=== PATIENT | male | born 1950 | race Caucasian/White ===

== ENCOUNTER → 2018-01-29 15:23 | Outpatient (CLI) | payer MEDICARE, MEDICAID, SELFPAY ==
[2018-01-29 17:46] LABS: Anion Gap 9 (5-15); BUN 23 mg/dL (7-18); BUN/Creat Ratio 19.3 RATIO (10-20); Calcium,Total 9.1 mg/dL (8.5-10.1); Chloride 106 mmol/L (98-107); Creatinine, Serum 1.19 mg/dL (0.70-1.30); EST Glomerular Filtration Rate 65 mL/min (>60); Est Glom Filt Rate - Afr Amer 78 mL/min (>60); Glucose 73 mg/dL (74-106); Potassium 4.1 mmol/L (3.5-5.1); Sodium Level 140 mmol/L (136-145)
== END ==
PROVIDERS: Family Provider Family Medicine; PCP Family Medicine; Visit Provider Urology
DX: C67.9 Malignant neoplasm of bladder, unspecified (principal)
CPT/HCPCS: 36415; 80048

== ENCOUNTER 2018-04-14 10:59 | Inpatient (IN) | payer MEDICARE, MEDICAID, SELFPAY ==
[2018-04-14 11:01] VITALS: BP 187/94; PULSE 59; RESP 16; TEMP 36.8; O2SAT 98; BMI 26.4
--- NOTE | 2018-04-14 11:47 | ED.VISSUMM ---
- ER Visit Summary Date of Service: 04/14/18 Chief Complaint: Right flank pain History of Present Illness: The patient is a 68 M presenting from [facility] emergency department for right-sided flank pain. Patient had a CT scan at [facility] which showed moderate bilateral hydronephrosis, hydroureter and perinephric fat stranding. These findings were discussed with Dr. Fields prior to his arrival who felt he will need stent placement. Patient has history of bladder cancer with tumor removal in November. His creatinine is elevated 2.14. His urine shows 6-10 white blood cells. Blood and urine cultures were sent at [facility]. He was given Cipro, Dilaudid, Toradol prior to arrival. On arrival patient's pain is controlled. Physical Examination: Vitals are stable. Patient is afebrile. Alert no acute distress. HEENT exam is unremarkable. Neck is supple. Lungs are clear and equal bilaterally. Heart is regular rate and rhythm. Abdomen is soft nontender nondistended. Back: nontender Extremities are unremarkable. Skin is warm and dry. No focal neurologic deficit. Remainder of exam is unremarkable. Emergency Department Course and Treatment: Patient's pain is controlled. Discussed with Dr Fields and the hospitalist for admission. Disposition: Admission Impression: Bilateral hydronephrosis, SAWYER, UTI This note was generated with [employer] dictation software. It may contain incorrect words, spelling, and punctuation that were not noted in review of the chart prior to signing ED Disposition - Plan for ED Patient: Disposition: Acute Care Hospital [facility] Chief Complaint: Flank Pain
--- NOTE | 2018-04-14 11:50 | ED.DCSUM_ITS ---
- ER Visit Summary Date of Service: 04/14/18 Chief Complaint: Right flank pain History of Present Illness: The patient is a 68 M presenting from [facility] emergency department for right-sided flank pain. Patient had a CT scan at [facility] which showed moderate bilateral hydronephrosis, hydroureter and perinephric fat stranding. These findings were discussed with Dr. Fields prior to his arrival who felt he will need stent placement. Patient has history of bladder cancer with tumor removal in November. His creatinine is elevated 2.14. His urine shows 6-10 white blood cells. Blood and urine cultures were sent at [facility]. He was given Cipro, Dilaudid, Toradol prior to arrival. On arrival patient's pain is controlled. Physical Examination: Vitals are stable. Patient is afebrile. Alert no acute distress. HEENT exam is unremarkable. Neck is supple. Lungs are clear and equal bilaterally. Heart is regular rate and rhythm. Abdomen is soft nontender nondistended. Back: nontender Extremities are unremarkable. Skin is warm and dry. No focal neurologic deficit. Remainder of exam is unremarkable. Emergency Department Course and Treatment: Patient's pain is controlled. Discussed with Dr Fields and the hospitalist for admission. Disposition: Admission Impression: Bilateral hydronephrosis, SAWYER, UTI This note was generated with [employer] dictation software. It may contain incorrect words, spelling, and punctuation that were not noted in review of the chart prior to signing ED Disposition - Plan for ED Patient: Disposition: Acute Care Hospital [facility] Chief Complaint: Flank Pain
[2018-04-14 11:56] VITALS: BP 163/88; PULSE 69; RESP 14; O2SAT 98
[2018-04-14 12:34] VITALS: BP 163/86; PULSE 64; RESP 16; TEMP 36.5; O2SAT 96; BMI 25.5; BMI 25.6
--- NOTE | 2018-04-14 13:43 | PCM.HP.STD ---
Problem List (1) Bilateral hydronephrosis Status: Acute (2) Hydroureter on left Status: Acute (3) Hydroureter on right Status: Acute (4) Acute kidney injury Status: Acute (5) Pulmonary nodule Status: Acute (6) Hypertension Status: Chronic (7) GERD (gastroesophageal reflux disease) Status: Chronic (8) Peripheral vascular disease Status: Chronic Comment: has had a stent left groin (9) Tobacco dependence Status: Chronic (10) Enlarged prostate Status: Chronic (11) Chest tightness or pressure Status: Acute Comment: has been intermittent and associated with exertion and SOB History of Present Illness Date of Admission: 04/14/18 Chief Complaint: Sent to [facility] from an outside ED with BL hydronephrosis/back pain The patient is a 68 year old M with a past medical history of hypertension, GERD, bladder cancer, BPH, CULLEN (noncompliant with CPAP), lipidemia and tobacco dependence who presented to an outside ER complaining of sudden onset of back pain night. CT scan of the abdomen and pelvis at the outside ER showed bilateral hydronephrosis and bilateral hydroureter. Creatinine was increased at 2.14. White cell count was 9.2 and the hemoglobin was 16.4 with normal platelets. Electrolytes were unremarkable. Urine showed 6-10 WBCs per high-power field and 11-25 WBCs per high-power field. His urologist, Dr. Jose Juan Fields, was contacted and patient transferred to [facility]. He tells me that he has had hematuria since his cystoscopy in November 2007. He had urinary hesitancy while at the outside ER but, this has improved since IV fluids. He denies fevers, shaking chills, dysuria, cough, shortness of breath. Current vital signs are temperature 97.7, heart rate 64, blood pressure 163/86, respiratory rate 16 and he is 96-98% saturated on room air. He also tells me that he has had chest pain in the past and it comes on with exertion and is relieved with stress. It is associated with SOB but not diaphoresis or nausea. He has never had a stress test. There is a hx of CAD on his father's side of the family. Past Medical History Past Medical History (Chronic Problems): Chronic Problems Hypertension (Chronic) GERD (gastroesophageal reflux disease) (Chronic) Peripheral vascular disease (Chronic) has had a stent left groin Tobacco dependence (Chronic) Enlarged prostate (Chronic) Allergies bupropion [From Wellbutrin] Allergy (Verified 04/14/18 11:08) Unknown cephalexin [From Keflex] Allergy (Verified 04/14/18 11:08) Unknown Penicillins Allergy (Verified 04/14/18 11:08) Unknown Home Medications: Ambulatory Orders Medication Instructions Recorded Aspirin E.C. [Ecotrin] 81 mg PO DAILY@0800 12/03/17 Cholecalciferol (Vitamin D3) 1,000 unit PO PRN PRN 12/03/17 [Vitamin D3] Lisinopril [Prinivil] 10 mg PO DAILY 12/03/17 Pantoprazole Sodium [Protonix] 40 mg PO PRN PRN 12/03/17 Finasteride [Proscar] 5 mg PO DAILY 04/14/18 Tamsulosin HCl [Flomax] 0.4 mg PO BID 04/14/18 Surgical History: total hip arthroplasty - Left hip, - - Resection of a bladder tumor by Dr. Jose Juan Fields in November 2017, repair of laceration to the right wrist after he put his hand through a window. Stent LLE Psychiatric History: No pertinent psych hx Lives: Alone Smoking Status: Current every day smoker Tobacco Use: Cigarettes Alcohol: Occasional Drugs: None - *Family History Paternal History Items: Heart Disease, - - Peripheral vascular disease Review of Systems Constitutional: Denies: Anorexia, Chills, Fever, Weakness Eyes: Denies: Vision Change HEENT: Denies: Head Aches, Sinus Congestion, Sinus Drainage Cardiovascular: Reports: Chest Tightness - associated with exertion and SOB. Denies: Edema, Light Headedness, Orthopnea, Palpitations, Syncope Respiratory: Reports: Shortness of breath upon exertion. Denies: Hemoptysis, Sputum production Gastrointestinal: Reports: Abdominal Pain, Nausea. Denies: Vomiting Genitourinary: Reports: Hematuria, Hesitancy, Retention. Denies: Dysuria Musculoskeletal: Reports: Back Pain. Denies: Joint Pain, Joint Tenderness Skin: Denies: Rash, Wounds Psychiatric: Denies: Anxiety, Depression, Homicidal Ideations, Suicidal Ideations Endocrine: Denies: Change in Body Habitus Hematologic/ Lymphatic: Denies: Hx of blood clot VTE Information - Inpt Only VTE Present on Admission: No VTE Mechan Device Prophylaxis: SCD's, Knee High MARCIE Hose VTE Pharm Prophylaxis ordered?: No Reason prophylaxis not ordered:: Treatment Not Indicated - he has hematuria and is going to surgery in the next 24 hours Patient Problems: Active and Suspected Problems Bilateral hydronephrosis (Acute) Hydroureter on left (Acute) Hydroureter on right (Acute) Acute kidney injury (Acute) Pulmonary nodule (Acute) Chest tightness or pressure (Acute) has been intermittent and associated with exertion and SOB - Physical Exam General: Alert, Oriented x3, Cooperative, No apparent distress, Well developed, Well nourished HEENT: Atraumatic, PERRLA, EOMI, Normocephalic Oral: No Gingival or Mucosal Lesions/ Ulcerations, Dry Mucosa Neck: Supple, No JVD, Negative Carotid Bruits, - - Brisk carotid upstroke with good pulse volume bilaterally Lungs: Normal air movement, Rales - few coarse crackles in the right base but optherwise normal, - - rare wheeze, symmetric chest expansion, no conversational dyspnea, not tachypneic, no accessory muscle use. Cardiovascular: Regular rate, Regular Rhythm, Normal S1, Normal S2, No murmurs, No Ectopic Activity, No rub noted, No Gallop Abdomen: Bowel Sounds Present, Soft, Non Tender, Non-Distended, - - The bladder does not feel distended at the time of my exam. No guarding with palpation. No masses appreciated. Extremities: No clubbing, No cyanosis, No Calf Tenderness, Diminished Peripheral Pulses, Edema - small amount of edema in the ankles Skin: No rashes, No breakdown Musculoskeletal: No Muscle Wasting Neurological: Cranial nerves II-XII grossly intact, Neuro grossly intact Psych/Mental Status: Normal Affect, Appropriate Vital Signs Temp Pulse Resp BP Pulse Ox 97.7 F L 64 16 163/86 H 96 04/14/18 12:34 04/14/18 12:34 04/14/18 12:34 04/14/18 12:34 04/14/18 12:34 Oxygen Delivery Method Room Air Weight: 193 lb 12.8 oz Body Mass Index (BMI) 25.5 Assessment/Plan Active and Suspected Problems Bilateral hydronephrosis (Acute) Hydroureter on left (Acute) Hydroureter on right (Acute) Acute kidney injury (Acute) Pulmonary nodule (Acute) Chest tightness or pressure (Acute) has been intermittent and associated with exertion and SOB Impressions 1. Bilateral hydronephrosis and hydroureter with a history of bladder [place] [address] [place] 2. History of bladder cancer 3. Hypertension 4. Acute kidney injury likely secondary to urinary tract obstruction 5. GERD 6. Ongoing tobacco dependence 7. Hematuria 8. Pulmonary nodule right base reported on CT scan of the abdomen and pelvis 9. CP with exertion and associated with SOB - has never had a stress test. Discussed with Dr. Fields-will make n.p.o. after midnight for planned cystoscopy in the a.m. SCDs and MARCIE hose for DVT prophylaxis and hold off on pharmacologic prophylaxis due to hematuria and planned surgery in less than 24 hours Hydrate Check a post void residual Protonix for GI prophylaxis Pain medication ordered Recheck lab in the a.m. No Patel at this time Hydralazine as needed for systolic greater than 150 or diastolic greater than 85 EKG now Smoking cessation counseling given NicoDerm patch ordered Continue aspirin and DC Lisinopril due to SAWYER Code Visit Inpatient E&M: 46813 Init Hosp L3
[2018-04-14] MEDS: Finasteride 5 MG Tablet PO (14:53)
[2018-04-14] MEDS: Lactated Ringers 1,000 ML 100 ML IV ×2 (14:53→23:53)
[2018-04-14] MEDS: Pantoprazole Sodium 40 MG Tablet PO (14:53)
[2018-04-14 18:12] VITALS: BP 149/79; PULSE 63; RESP 16; TEMP 36.8; O2SAT 96
[2018-04-14 20:17] VITALS: BP 151/86; PULSE 58; RESP 16; TEMP 36.8; O2SAT 97
[2018-04-14] MEDS: Tamsulosin HCl 0.4 MG Capsule PO (21:57)
[2018-04-15] VITALS (11 sets, daily range): BP systolic 133–169; BP diastolic 66–85; PULSE 51–98; RESP 16; TEMP 36.3–36.9; O2SAT 94–100; BMI 25.6
--- NOTE | 2018-04-15 03:23 | CON.PCM_ITS ---
Reason for Consult Date of Consultation: 04/15/18 Reason for Consultation: History of bladder cancer status post resection of a very large tumor involving the trigone in the bladder. Presented with bilateral hydronephrosis thickened bladder wall on CAT scan History of Present Illness: The patient is a 68 year old male who is a heavy smoker was found to have a very large bladder tumor that occupied is bladder trigone and was overlying both the ureteral orifices, I resected both the tumors I did identify the left and right ureteral orifice did not put a stent in the risk of contaminant contaminating the upper tracts, after surgeries having difficulty with urination so put him on an alpha-carol medication for his prostate and he been urinating better since then. [facility] and was found to have bilateral hydronephrosis and a horseshoe kidney also has a 12 mm nodule in the lung base which is new, no prior imaging to document stability. He does report having gross hematuria. CT scan was reviewed personally a lot of scar scatter artifact from the hip replacement difficult to tell if there is any recurrent tumors in the bladder given the scatter artifact from the hip but he does have bilateral hydronephrosis horseshoe kidney with hydronephrosis. His creatinine is elevated. Past Medical History Past Medical History (Chronic Problems): Chronic Problems Hypertension (Chronic) GERD (gastroesophageal reflux disease) (Chronic) Peripheral vascular disease (Chronic) has had a stent left groin Tobacco dependence (Chronic) Enlarged prostate (Chronic) Allergies bupropion [From Wellbutrin] Allergy (Verified 04/14/18 11:08) Unknown cephalexin [From Keflex] Allergy (Verified 04/14/18 11:08) Unknown Penicillins Allergy (Verified 04/14/18 11:08) Unknown Home Medications: Ambulatory Orders Medication Instructions Recorded Aspirin E.C. [Ecotrin] 81 mg PO DAILY@0800 12/03/17 Cholecalciferol (Vitamin D3) 1,000 unit PO PRN PRN 12/03/17 [Vitamin D3] Lisinopril [Prinivil] 10 mg PO DAILY 12/03/17 Pantoprazole Sodium [Protonix] 40 mg PO PRN PRN 12/03/17 Finasteride [Proscar] 5 mg PO DAILY 04/14/18 Tamsulosin HCl [Flomax] 0.4 mg PO BID 04/14/18 Surgical History: total hip arthroplasty - Left hip, - - Resection of a bladder tumor by Dr. Jose Juan Fields in November 2017, repair of laceration to the right wrist after he put his hand through a window. Stent LLE Psychiatric History: No pertinent psych hx Lives: Alone Smoking Status: Current every day smoker Tobacco Use: Cigarettes Alcohol: Occasional Drugs: None - *Family History Paternal History Items: Heart Disease, - - Peripheral vascular disease Review of Systems Constitutional: Reports: Anorexia, Chills HEENT: Denies: Head Aches, Sinus Congestion, Sinus Drainage Cardiovascular: Denies: Chest Pain, Palpitations Respiratory: Reports: Cough. Denies: Shortness of breath at rest, Sputum production Gastrointestinal: Denies: Abdominal Pain, Nausea, Vomiting Genitourinary: Reports: Hematuria - Systolic history are not adjusted to me to be fine Musculoskeletal: Denies: Joint Pain, Joint Tenderness Skin: Denies: Rash, Wounds Neurological: Denies: Numbness, Tingling, Focal weakness Psychiatric: Denies: Anxiety, Depression, Homicidal Ideations, Suicidal Ideations Hematologic/ Lymphatic: Denies: Easy Bruising, Easy Bleeding Physical Exam - Physical Exam Vital Signs Temp 98.5 F 04/15/18 02:20 Pulse 61 04/15/18 02:20 Resp 16 04/15/18 02:20 BP 137/66 H 04/15/18 02:20 Pulse Ox 95 04/15/18 02:20 Intake & Output 04/13/18 04/14/18 04/15/18 23:59 23:59 23:59 Intake Total 1184 / 1184 Output Total 1660 / 1660 Balance -476 / -476 Weight: 87.906 kg Intake: Oral 360 / 360 IV fluid/meds 824 / 824 Output: Urine 1660 / 1660 Other: Number of Voids 2 General: Alert, Oriented x3 HEENT: Atraumatic, PERRLA Oral: Moist Mucosa Neck: Supple Lungs: Normal air movement Cardiovascular: Regular rate Abdomen: Soft Rectal: Exam deferred Assessment/Plan Active and Suspected Problems Bilateral hydronephrosis (Acute) Hydroureter on left (Acute) Hydroureter on right (Acute) Acute kidney injury (Acute) Pulmonary nodule (Acute) Chest tightness or pressure (Acute) has been intermittent and associated with exertion and SOB 68-year-old male history of bladder cancer bilateral hydronephrosis etiology of the hydronephrosis are as follows this is explained to the patient could be scar tissue from her second is large bladder cancer that the case with the re- resect scar tissue and placed stents on both sides allowed to heal, hydronephrosis could also be from progression of cancer could be a sign of recurrent bladder cancer. He does have a 12 mm nodule in the lung bases concerning recommend to get further imaging with a CT scan of the chest to further evaluate the chest. Planted taken to surgery tomorrow for a TURBT and bilateral stent placement.
[2018-04-15 06:02] LABS: Absolute Lymphocyte Count 1.48 X10^3/ul (0.83-4.51); Absolute Neutrophil Count 3.5 X10^3/uL (2.0-7.7); Basophil# 0.02 X10^3/uL; Basophil% 0.4 % (0-1); Eosinophils% 1.8 % (0-5); Hematocrit 40.3 % (40-54); Hemoglobin 13.5 g/dl (13.0-16.5); Lymphocyte # 1.48 X10^3/ul (4.0); Lymphocyte % 26.4 % (19-41); Mean Corp Hgb Conc 33.5 g/gl (32-36); Mean Corpuscular Hgb 30.1 pg (27.0-32.0); Mean Platelet Vol. 10.5 fl (6.2-12.0); Monocyte# 0.54 X10^3/uL; Monocyte% 9.6 % (0-10); Neutrophil # 3.47 X10^3/uL (2.7-7.7); Neutrophil % 61.8 % (47-70); Platelet Count 173 K/mm3 (150-450); RBC Distribution Width CV 13.6 % (11.6-14.6); RBC Distribution Width SD 44.7 fl (35.1-43.9); Red Blood Count 4.48 M/mm3 (4.6-6.2); White Blood Count 5.6 K/mm3 (4.4-11.0)
[2018-04-15 06:10] LABS: POSITIVE COUNT NO; POSITIVE DIFFERENTIAL NO; POSITIVE MORPHOLOGY NO
[2018-04-15 06:36] LABS: ALB/GLOB Ratio 0.8 RATIO (0.9-2.4); AST(SGOT) 13 U/L (15-37); Alanine Aminotransfer ALT/SGPT 11 U/L (16-61); Albumin, Serum 2.8 g/dL (3.2-5.0); Alkaline Phosphatase 59 U/L (45-117); Anion Gap 8 (5-15); BUN 33 mg/dL (7-18); BUN/Creat Ratio 18.4 RATIO (10-20); Calcium,Total 8.4 mg/dL (8.5-10.1); Chloride 110 mmol/L (98-107); Cholesterol 211 mg/dL (200); Creatinine, Serum 1.79 mg/dL (0.70-1.30); EST Glomerular Filtration Rate 40 mL/min (>60); Est Glom Filt Rate - Afr Amer 49 mL/min (>60); Estimated Creatinine Clearance 44.64 ml/min; Globulin 3.4 g/dL (2.2-4.2); Glucose 90 mg/dL (74-106); High Density Lipoprotein 30 mg/dL; Magnesium 1.6 mg/dL (1.6-2.6); Phosphorus 3.4 mg/dL (2.5-4.9); Potassium 4.5 mmol/L (3.5-5.1); Protein, Total 6.2 g/dL (6.4-8.2); Sodium Level 144 mmol/L (136-145); Triglycerides 159 mg/dL; Very Low Density Lipoprotein 32 mg/dL (5-40)
--- NOTE | 2018-04-15 08:23 | PCM.PROGNOTE ---
Patient Problems: Active and Suspected Problems Bilateral hydronephrosis (Acute) Hydroureter on left (Acute) Hydroureter on right (Acute) Acute kidney injury (Acute) Pulmonary nodule (Acute) Chest tightness or pressure (Acute) has been intermittent and associated with exertion and SOB Subjective: All events of the past 24 hours of been reviewed. He has been afebrile since admission. Systolic blood pressure is mildly elevated but vital signs are stable. He is 95-97% saturated on room air. Fluid balance since admission is +664. He has had 1660 cc of urine. All lab was personally reviewed. CBC is unremarkable. Sodium is increased at 144 with a chloride of 110. Potassium is 4.5 and his BUN is 33 with a creatinine of 1.79, down from 2 on 04/14/2018. Phosphorus and magnesium are within normal limits. LFTs are unremarkable. The LDL is 149 and the HDL is 30 with triglycerides of 159. Taken to surgery today and no obvious recurrent bladder tumor. There was a lot of scar tissue at the openings of the ureters into the bladder and the scar tissue was excised and BL ureteral stents were placed. He is alert and oriented post op and appears in no distress. Objective: - Physical Exam General: Alert, Oriented x3, Cooperative, No apparent distress, Well developed, Well nourished HEENT: Atraumatic, PERRLA, EOMI, Normocephalic Oral: No Gingival or Mucosal Lesions/ Ulcerations, Dry Mucosa Neck: Supple, No JVD, Negative Carotid Bruits, - - Brisk carotid upstroke with good pulse volume bilaterally Lungs: Normal air movement, Rales - few coarse crackles in the right base but optherwise normal, - - rare wheeze, symmetric chest expansion, no conversational dyspnea, not tachypneic, no accessory muscle use. Cardiovascular: Regular rate, Regular Rhythm, Normal S1, Normal S2, No murmurs, No Ectopic Activity, No rub noted, No Gallop Abdomen: Bowel Sounds Present, Soft, Non Tender, Non-Distended, - - The bladder does not feel distended at the time of my exam. No guarding with palpation. No masses appreciated. Extremities: No clubbing, No cyanosis, No Calf Tenderness, Diminished Peripheral Pulses, Edema - small amount of edema in the ankles Skin: No rashes, No breakdown Musculoskeletal: No Muscle Wasting Neurological: Cranial nerves II-XII grossly intact, Neuro grossly intact Psych/Mental Status: Normal Affect, Appropriate - Physical Exam Vital Signs Temp Pulse Resp BP Pulse Ox 98.5 F 61 16 137/66 H 95 04/15/18 02:20 04/15/18 02:20 04/15/18 02:20 04/15/18 02:20 04/15/18 02:20 Oxygen Delivery Method Room Air Weight: 193 lb 12.793 oz Intake and Output for Last 24 Hours 04/13/18 04/14/18 04/15/18 23:59 23:59 23:59 Intake Total 1184 / 1184 664 / 664 Output Total 1660 / 1660 Balance -476 / -476 664 / 664 Laboratory Tests Past 24 Hrs 04/15/18 04/15/18 05:30 05:30 WBC 5.6 RBC 4.48 L Hgb 13.5 Hct 40.3 MCV 90.0 MCH 30.1 MCHC 33.5 RDW 13.6 RDW Differential 44.7 H Plt Count 173 MPV 10.5 Immature Gran % (Auto) 0.000 Neut % (Auto) 61.8 Lymph % (Auto) 26.4 [place] % (Auto) 9.6 Eos % (Auto) 1.8 Baso % (Auto) 0.4 Absolute Neuts (auto) 3.5 Absolute Lymphs (auto) 1.48 Total Counted Not Reportable Sodium 144 Potassium 4.5 Chloride 110 H Carbon Dioxide 26.0 Anion Gap 8 BUN 33 H Creatinine 1.79 H Estim Creat Clear Calc 44.64 Est GFR (MDRD) Af Amer 49 L Est GFR (MDRD) Non-Af 40 L BUN/Creatinine Ratio 18.4 Glucose 90 Calcium 8.4 L Phosphorus 3.4 Magnesium 1.6 Total Bilirubin 0.50 AST 13 L ALT 11 L Alkaline Phosphatase 59 Total Protein 6.2 L Albumin 2.8 L Globulin 3.4 Albumin/Globulin Ratio 0.8 L Triglycerides 159 Cholesterol 211 H LDL Cholesterol 149 H VLDL Cholesterol 32 HDL Cholesterol 30 L Medical Necessity - Tobacco Use Smoking Status: Current every day smoker Tobacco Use: Cigarettes Assessment/Plan All Active Problems Bilateral hydronephrosis (Acute) Hydroureter on left (Acute) Hydroureter on right (Acute) Acute kidney injury (Acute) Pulmonary nodule (Acute) Chest tightness or pressure (Acute) Bladder cancer (Acute) Impressions 1. Bilateral hydronephrosis and hydroureter with a history of bladder [place] [address] [place] 2. History of bladder cancer 3. Hypertension 4. Acute kidney injury likely secondary to urinary tract obstruction 5. GERD 6. Ongoing tobacco dependence 7. Hematuria 8. Pulmonary nodule right base reported on CT scan of the abdomen and pelvis 9. CP with exertion and associated with SOB - has never had a stress test. 10. S/P BL ureteral stents Recheck the lab in the AM Possible DC tomorrow Will DC the CT chest without contrast because pulmonary nodules should have contrast with CT scan and his creat is still elevated. This is not an emergent test and it can even be done as an OP......he is agreeable to following up with pulmonary He should have an OP stress test because he has had CP with exertion associated with SOB Code Visit Inpatient E&M: 65306 Subs Hosp L2
--- NOTE | 2018-04-15 09:25 | CASEMGMT ---
RN JOHN Face to Face with patient for initial transition planning/care coordination assessment. RN CM introduced self and role at [facility]. Patient sitting in chair, alert and oriented. Patient willing to participate in assessment and is able to answer all questions appropriately. Care providers, pharmacy, and demographics verified. See link attached. Patient wishes to discharge home, denies need for home health at this time. Patient states he has no further needs or concerns at this time. CM to follow for discharge planning needs that may arise. Disposition Plan: Patient to discharge home with support from friend and follow-up plans in place.
--- NOTE | 2018-04-15 09:41 | SLEEP ---
Seen patient and education was given on sleep disordered breathing and the importance of screening/testing. Patient verbalized understanding and a brochure of information was left with the patient.
[2018-04-15] MEDS: Lactated Ringers 1,000 ML 100 ML IV (11:09)
--- NOTE | 2018-04-15 12:45 | BLB_PTH ---
PATIENT: EDUIN CHAU LOC: MS3 U#:[id number] AGE/SX: 68/M ROOM: IN318 RE04/14/[address]: Dr. Cari Hayes DO : 1950 BED: 1 DIS: 04/16/2018 SPEC #: [id number] RECD: 04/16/18 08:38 STATUS: CARROLL GUTIERREZ #: [id number] AUGUSTIN: 04/15/18 12:[address]: Jackson Fields DEPT: SURGICAL PATHOLOGY RECD BY: Shantanu Garg ENTERED: 04/16/18 09:06 SP TYPE: TURB OTHR DR: DO Dr. Donell Arteaga MD Tissues: Urinary bladder, NOS Procedures: Surgery Specimen Level V HEADER OPERATION: Cysto, transurethral resection bladder, Olympus stent insertion PRE-OP DIAGNOSIS: History of bladder cancer and hydronephrosis TISSUE SUBMITTED: Bladder tissue MICROSCOPIC DIAGNOSIS Urinary bladder, transurethral resection: Focal chronic cystitis. No evidence of malignancy. 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 MICROSCOPIC DESCRIPTION Slides are reviewed. GROSS DESCRIPTION Received in fixative is one container labeled with the patient's name and designated bladder tissue. The specimen consists of multiple irregular fragments of light magdaleno soft tissue that in aggregate measure 1.5 x 1 x 0.3 cm. The specimen is totally submitted in one cassette. / BILLY:diana 04/16/18 TC:3 CPT: 44333
[2018-04-15] MEDS: Pantoprazole Sodium 40 MG Tablet PO (13:18)
[2018-04-15] MEDS: Ciprofloxacin 400 MG/200 ML BAG 200 MG IV (13:42)
--- NOTE | 2018-04-15 16:01 | PCM.OPRPT ---
Report of Operation Date of Procedure: 04/15/18 Pre-Operative Diagnosis: History of bladder cancer with lamina propria invasion high-grade large tumor involving both orifices in the trigone. Post-Operative Diagnosis: Same. Surgery/Procedure Performed:: Transurethral resection of medium size, resected both the left and right ureteral orifice, cystoscopy bilateral retrograde pyelograms and bilateral stent placement Description of Surgical Findings:: 68-year-old male presented to the hospital with bilateral hydronephrosis history of bladder cancer involving the both left and right ureteral orifice in the trigone that was resected in November, plan taken to the operating room today for cystoscopy biopsies and bilateral stent placements. 68-year-old male taken back to the operating room at the smooth induction of anesthesia he was placed supine on the table, penis and testicles were prepped and draped in usual sterile fashion, went into the bladder with the cystoscope into the 30 and 70? lens gutierrez cystoscopy identified some bullous edema around the orifice of the left ureter that appeared obstructive and identified the right ureteral orifice fairly stenotic from scar tissue. I then used the resectoscope and resected the right ureteral orifice open and then resected the left ureteral orifice open set off this tissue for pathology otherwise I did not see any obvious signs of cancer within the bladder, some irritation in the bladder wall and inflammation of the bladder wall from a prior catheter but no tumors were seen. After resecting the orifices then I placed the Pollack catheter up the right-sided pyelogram place a stent, and then on the left side and placed the Pollack catheter to a retrograde and then place a stent and then drain the bladder patient can follow-up with me. In the office plan is to let the bladder heal with the stents for about 6-8 weeks and I will remove the stent in the office hopefully this will heal and allow the ureters to stay open. We will see what the pathology shows any invasive cancer or just recurrent scar tissue. Type of Anesthesia:: General Drains: stents both side. - Admit VTE Documentation VTE Present on Admission: No VTE Mechan Device Prophylaxis: SCD's VTE Pharm Prophylaxis ordered?: No Reason prophylaxis not ordered:: Treatment Not Indicated
--- NOTE | 2018-04-15 18:40 | RAD_ITS ---
STUDY: X-RAY CHEST REASON FOR EXAM: Male, 68 years old. History of right lower lobe pulmonary nodule. TECHNIQUE: PA and lateral views of the chest. COMPARISON: None. FINDINGS: Hyperinflation. Mild increased markings at the lung bases suggestive of scarring. There is a faint 1.6 cm x 1.3 cm nodular density in the lateral aspect of the right lower lobe. There is blunting of the left costophrenic angle. Normal size heart. Calcified right hilar lymph nodes. Normal visualized pulmonary arteries. There is atherosclerotic tortuosity of the aortic arch and descending thoracic aorta. Normal visualized thoracic spine. Normal visualized ribs, clavicles, and shoulders. There is no demonstrated abnormality of the visualized soft tissue structures of the upper abdomen. RAD/Chest PA and Lateral IMPRESSION: Hyperinflation. Mild increased markings at the lung bases suggest scarring. Faint 1.6 cm x 1.3 cm nodule in the lateral aspect of the right lower lobe. Electronically Signed: Lukasz Shoemaker MD at 9:20 EDT Tel [phone], Service support ,
[2018-04-15] MEDS: Tamsulosin HCl 0.4 MG Capsule PO (20:46)
[2018-04-16] MEDS: oxyCODONE 5 MG Tablet 10 MG PO (01:41)
[2018-04-16] MEDS: Lactated Ringers 1,000 ML 100 ML IV (01:41)
[2018-04-16 02:50] VITALS: BP 148/74; PULSE 62; RESP 18; TEMP 36.7; O2SAT 99
[2018-04-16 06:08] LABS: Absolute Lymphocyte Count 1.55 X10^3/ul (0.83-4.51); Absolute Neutrophil Count 4.3 X10^3/uL (2.0-7.7); Basophil# 0.03 X10^3/uL; Basophil% 0.4 % (0-1); Eosinophil# 0.11 X10^3/uL; Eosinophils% 1.6 % (0-5); Hematocrit 40.2 % (40-54); Hemoglobin 13.8 g/dl (13.0-16.5); Lymphocyte # 1.55 X10^3/ul (4.0); Mean Corp Hgb Conc 34.3 g/gl (32-36); Mean Corpuscular Hgb 30.5 pg (27.0-32.0); Mean Corpuscular Volume 88.7 fL (80-94); Mean Platelet Vol. 10.8 fl (6.2-12.0); Monocyte# 0.74 X10^3/uL; Neutrophil # 4.29 X10^3/uL (2.7-7.7); Neutrophil % 63.9 % (47-70); Platelet Count 173 K/mm3 (150-450); RBC Distribution Width CV 13.2 % (11.6-14.6); RBC Distribution Width SD 42.5 fl (35.1-43.9); Red Blood Count 4.53 M/mm3 (4.6-6.2); White Blood Count 6.7 K/mm3 (4.4-11.0)
[2018-04-16 06:35] LABS: Anion Gap 8 (5-15); BUN 25 mg/dL (7-18); BUN/Creat Ratio 17.9 RATIO (10-20); Calcium,Total 8.3 mg/dL (8.5-10.1); Chloride 111 mmol/L (98-107); EST Glomerular Filtration Rate 54 mL/min (>60); Est Glom Filt Rate - Afr Amer 65 mL/min (>60); Estimated Creatinine Clearance 57.07 ml/min; Glucose 100 mg/dL (74-106); POSITIVE COUNT NO; POSITIVE DIFFERENTIAL NO; POSITIVE MORPHOLOGY NO; Potassium 3.9 mmol/L (3.5-5.1); Sodium Level 143 mmol/L (136-145)
[2018-04-16 07:06] VITALS: O2SAT 95
--- NOTE | 2018-04-16 07:42 | PCM.PROGNOTE ---
Patient Problems: Active and Suspected Problems Bilateral hydronephrosis (Acute) Hydroureter on left (Acute) Hydroureter on right (Acute) Acute kidney injury (Acute) Pulmonary nodule (Acute) Chest tightness or pressure (Acute) has been intermittent and associated with exertion and SOB Subjective: History of bladder cancer presented with bilateral hydronephrosis went to the operating room for resection of the scarred ureters and placement of stents on both sides did not appear to be recurrence of cancer appeared to be more scar tissue, at this point now he has bilateral stents clinically he looks well I would expect his creatinine to improve he can probably be discharged home and follow-up with me in a few weeks. - Physical Exam General: Alert, Oriented x3, Cooperative HEENT: Atraumatic, PERRLA, EOMI, Normocephalic Neck: Supple, No JVD, Negative Carotid Bruits Lungs: Clear to auscultation, Normal air movement Cardiovascular: Regular rate, No murmurs Abdomen: Bowel Sounds Present, Soft, Non Tender Extremities: No edema, Capillary Refill Less than 3 Seconds Skin: No rashes, No breakdown Musculoskeletal: No Tenderness to Palpation of Joints or Extremities Neurological: Cranial nerves II-XII grossly intact Psych/Mental Status: Normal Affect, Appropriate Vital Signs Temp Pulse Resp BP Pulse Ox 98.1 F 62 18 148/74 H 99 04/16/18 02:50 04/16/18 02:50 04/16/18 02:50 04/16/18 02:50 04/16/18 02:50 Oxygen Delivery Method Room Air Weight: 91.172 kg Intake and Output for Last 24 Hours 04/14/18 04/15/18 04/16/18 23:59 23:59 23:59 Intake Total 1184 / 1184 764 / 764 1925 / 1925 Output Total 1660 / 1660 400 / 400 550 / 550 Balance -476 / -476 364 / 364 1375 / 1375 Laboratory Tests Past 24 Hrs 04/16/18 04/16/18 05:55 05:55 WBC 6.7 RBC 4.53 L Hgb 13.8 Hct 40.2 MCV 88.7 MCH 30.5 MCHC 34.3 RDW 13.2 RDW Differential 42.5 Plt Count 173 MPV 10.8 Immature Gran % (Auto) 0.100 Neut % (Auto) 63.9 Lymph % (Auto) 23.0 [place] % (Auto) 11.0 H Eos % (Auto) 1.6 Baso % (Auto) 0.4 Absolute Neuts (auto) 4.3 Absolute Lymphs (auto) 1.55 Total Counted Not Reportable Sodium 143 Potassium 3.9 Chloride 111 H Carbon Dioxide 24.0 Anion Gap 8 BUN 25 H Creatinine 1.40 H Estim Creat Clear Calc 57.07 Est GFR (MDRD) Af Amer 65 Est GFR (MDRD) Non-Af 54 L BUN/Creatinine Ratio 17.9 Glucose 100 Calcium 8.3 L Medical Necessity - Tobacco Use Smoking Status: Current every day smoker Tobacco Use: Cigarettes Assessment/Plan All Active Problems Bilateral hydronephrosis (Acute) Hydroureter on left (Acute) Hydroureter on right (Acute) Acute kidney injury (Acute) Pulmonary nodule (Acute) Chest tightness or pressure (Acute) Bladder cancer (Acute) Status post bilateral stent placement and resection of the bladder await pathology report also has a question of a lung nodule CT scan was ordered we will review this. Patient stable to go home and can follow-up in my office as planned.
--- NOTE | 2018-04-16 09:08 | DCINST_ITS ---
- Discharge Diagnoses Current Active Problems: Current Active and Chronic Problems Bilateral hydronephrosis (Acute) Hydroureter on left (Acute) Hydroureter on right (Acute) Acute kidney injury (Acute) Pulmonary nodule (Acute) Hypertension (Chronic) GERD (gastroesophageal reflux disease) (Chronic) Peripheral vascular disease (Chronic) has had a stent left groin Tobacco dependence (Chronic) Enlarged prostate (Chronic) Chest tightness or pressure (Acute) has been intermittent and associated with exertion and SOB You will use the following diet at home:: Cardiac - low salt and low cholesterol Your food should be the consistency of: Regular Your liquids should be the consistency of: Regular/Thin Discharge Activity: Return to Normal Activity Call your doctor if you observe: Fever of 101 or Higher, Inability to urinate, Shortness of breath, Dizziness, Fainting spells, Swelling in the ankles, Chest pain, Increased palpitations (irregular heartbeat), Calf discomfort, Uncontrolled pain Additional Instructions: 1. You should take the Lisinopril until the kidney function returns to baseline. I have started you on a new BP pill called amlodipine and you will take it once a day. 2. I am concerned about the chest pain and shortness of breath you have with exertion. You need to have a stress test to make sure that you do not have coronary artery disease. Dr. Gaines can arrange a stress test for you. 3. You have a nodule in the base of the right lung. It was there in October of 2012 so it is not new. Usually with nodules we like to do the chest CT with contrast and the contrast can affect the kidneys so I want to wait until the kidney function has returned to baseline. I am going to have you follow up with 1 of the lung doctors, Dr. Timmy Lira, to follow up the nodule. 4. I am starting you on a drug called Cymbalta to help with depression. I am starting you on 30 mg daily which is a low dose. If you have no adverse reactions with this medication in the next 2 weeks I would increase the dose to 60 mg dialy which is a more therapeutic dose. 5. I am sending Dr. Gaines a copy of your discharge summary so he knows what went on in the hospital and the changes in the medications. Pending Tests on Discharge: biopsy report from cystoscopy Allergies/Adverse Reactions: Allergies bupropion [From Wellbutrin] Allergy (Verified 04/14/18 11:08) Unknown cephalexin [From Keflex] Allergy (Verified 04/14/18 11:08) Unknown Penicillins Allergy (Verified 04/14/18 11:08) Unknown Medications to take at Discharge Aspirin E.C. [Ecotrin] 81 mg PO DAILY@0800 12/03/17 Cholecalciferol (Vitamin D3) [Vitamin D3] 1,000 unit PO PRN PRN 12/03/17 Pantoprazole Sodium [Protonix] 40 mg PO PRN PRN 12/03/17 Finasteride [Proscar] 5 mg PO DAILY 04/14/18 Tamsulosin HCl [Flomax] 0.4 mg PO BID 04/14/18 Amlodipine [Norvasc] 5 mg PO DAILY #30 tab 04/16/18 Duloxetine Hcl [Cymbalta] 30 mg PO DAILY #30 cap 04/16/18 Oxycodone HCl/Acetaminophen [Percocet 5/325] 1 - 2 tab PO Q6H PRN PRN 7 Days # 40 tab 04/16/18 The following prescriptions were given: Oxycodone HCl/Acetaminophen [Percocet 5/325] 1 - 2 tab PO Q6H PRN PRN 7 Days # 40 tab PRN Reason: Pain Amlodipine [Norvasc] 5 mg PO DAILY #30 tab Duloxetine Hcl [Cymbalta] 30 mg PO DAILY #30 cap Primary Care Physician: Donell Moralez MD [Primary Care Provider] - Please follow up with your Primary Care Physician in: 2 weeks Please Follow Up With: Jackson Fields MD When: 1 week Please Follow Up With: Timmy Lira DO When: 2 weeks to evaluate the pulmonary nodule Proposed Discharge Date: 04/16/18
--- NOTE | 2018-04-16 09:10 | PCM.DC.SUM ---
Discharge Date and Diagnosis Date of Admission: 04/14/18 Date of Discharge: 04/16/18 - Primary Discharge Diagnosis Active and Suspected Problems Ureteral stenosis, right (Acute) Ureteral stenosis, left (Acute) Bilateral hydronephrosis (Acute) Hydroureter on left (Acute) Hydroureter on right (Acute) Acute kidney injury (Acute) Encounter for fitting of ureteral stent (Acute) - Secondary Discharge Diagnosis Chronic Problems Chest pain on exertion (Chronic)associated with SOB History of bladder cancer (Chronic) Hematuria (Chronic) Depression (Chronic) Pulmonary nodule (Chronic) - R base, requires follow up Hypertension (Chronic) GERD (gastroesophageal reflux disease) (Chronic) Peripheral vascular disease (Chronic) has had a stent left groin Tobacco dependence (Chronic) Enlarged prostate (Chronic) Hospital Course and Treatment Imaging Results: Laboratory Results - last 24 hr 04/16/18 04/16/18 05:55 05:55 WBC 6.7 RBC 4.53 L Hgb 13.8 Hct 40.2 MCV 88.7 MCH 30.5 MCHC 34.3 RDW 13.2 RDW Differential 42.5 Plt Count 173 MPV 10.8 Immature Gran % (Auto) 0.100 Neut % (Auto) 63.9 Lymph % (Auto) 23.0 [place]icher % (Auto) 11.0 H Eos % (Auto) 1.6 Baso % (Auto) 0.4 Absolute Neuts (auto) 4.3 Absolute Lymphs (auto) 1.55 Total Counted Not Reportable Sodium 143 Potassium 3.9 Chloride 111 H Carbon Dioxide 24.0 Anion Gap 8 BUN 25 H Creatinine 1.40 H Estim Creat Clear Calc 57.07 Est GFR (MDRD) Af Amer 65 Est GFR (MDRD) Non-Af 54 L BUN/Creatinine Ratio 17.9 Glucose [address] Jose Juan Fields-urology Operations: - - Cystoscopy with bilateral ureteral stent placement Procedures: None Summary of Care Provided: The patient is a 68 year old M with a past medical history of hypertension, GERD, bladder cancer, BPH, CULLEN (noncompliant with CPAP), hyperlipidemia and tobacco dependence who presented to an outside ER complaining of sudden onset of back pain the previous night. CT scan of the abdomen and pelvis at the outside ER showed bilateral hydronephrosis and bilateral hydroureter. An incidental finding was a pulmonary nodule in the Right base. Creatinine was increased at 2.14. White cell count was 9.2 and the hemoglobin was 16.4 with normal platelets. Electrolytes were unremarkable. Urine showed 6-10 WBCs per high-power field and 11-25 WBCs per high-power field. His urologist, Dr. Jose Juan Fields, was contacted and the patient transferred to [facility]. He told me that he had hematuria ever since his cystoscopy in November 2017 for excision of a bladder CA. He had urinary hesitancy while at the outside ER but, this improved with IV fluids and a post void bladder residual at [facility] was < 100. He denied fevers, shaking chills, dysuria, cough, shortness of breath. Vital signs at presentation to [facility] were temperature 97.7, heart rate 64, blood pressure 163/86, respiratory rate 16 and he is 96-98% saturated on room air. He also revealed to me while doing his H&P that he has been having chest discomfort when running or exerting himself and that this was associated with SOB. He has no had a stress test for many years. He was take to the OR on 04/15 for cystoscopy. There was no obvious recurrent bladder mass. There was scar tissue at the ureteral orifices which was resected and biopsied and then bilateral ureteral stents were placed. The biopsy report showed focal chronic cystitis with no recurrence of malignancy. On 04/16/2018 he was afebrile and felt well. His urine had a mild pink tinge. He was discharged home and will follow up with Dr. Fields in the office in 1 week. Creatinine at discharge was 1.4. He will follow up with Dr. Moralez in the office in [address] scan of the chest was ordered by Dr. God[place] on [place] without contrast however to better evaluate a lung nodule the CT scan should be done with contrast. A plain x-ray also showed a nodule in the posterior right lower lung field and it measured 1.6 x 1.3 on the plain film. There was an abnormality present in the same area on his CT scan of the abdomen and pelvis done in October 2017. This will need to be followed. He was referred to Dr. Timmy Lira and should have a CT scan with contrast when the creatinine has recovered. Mr. Sanchez is chronically depressed and has tried many different antidepressants in the past with no significant improvement. After discussing with him what he had tried in the past we agreed on a trial of Cymbalta and he was given a RX for 30 mg capsules. He will take 30 mg daily for 2 weeks and if he has no advers SE's will increase the dose to 60 mg daily which is a more therapeutic dose. Smoking and ETOH cessation counselling was given in the hospital. This note was generated with [employer] dictation software. It may contain incorrect words, spelling, and punctuation that were not noted in checking the note before signing. Discharge Activity: Return to Normal Activity Call your doctor if you observe: Fever of 101 or Higher, Inability to urinate, Shortness of breath, Dizziness, Fainting spells, Swelling in the ankles, Chest pain, Increased palpitations (irregular heartbeat), Calf discomfort, Uncontrolled pain Home Medications: Medications to take at Discharge Aspirin E.C. [Ecotrin] 81 mg PO DAILY@0800 12/03/17 Cholecalciferol (Vitamin D3) [Vitamin D3] 1,000 unit PO PRN PRN 12/03/17 Pantoprazole Sodium [Protonix] 40 mg PO PRN PRN 12/03/17 Finasteride [Proscar] 5 mg PO DAILY 04/14/18 Tamsulosin HCl [Flomax] 0.4 mg PO BID 04/14/18 Amlodipine [Norvasc] 5 mg PO DAILY #30 tab 04/16/18 Duloxetine Hcl [Cymbalta] 30 mg PO DAILY #30 cap 04/16/18 Oxycodone HCl/Acetaminophen [Percocet 5/325] 1 - 2 tab PO Q6H PRN PRN 7 Days #40 tab 04/16/18 Following Prescrptions Were Given to Patient: Oxycodone HCl/Acetaminophen [Percocet 5/325] 1 - 2 tab PO Q6H PRN PRN 7 Days #40 tab PRN Reason: Pain Amlodipine [Norvasc] 5 mg PO DAILY #30 tab Duloxetine Hcl [Cymbalta] 30 mg PO DAILY #30 cap Primary Care Physician: Donell Moralez MD [Primary Care Provider] - Please follow up with your Primary Care Physician in: 2 weeks Please Follow Up With: Jackson Fields MD When: 1 week Please Follow Up With: Timmy Lira DO When: 2 weeks to evaluate the pulmonary nodule Disposition: Home Minutes spent on discharge:: 30 Patient Condition:: Good Medical Necessity - Tobacco Use Smoking Status: Current every day smoker Tobacco Use: Cigarettes Meaningful Use Info Meaningful Use Diagnoses (Choose all that apply): None applicable Code Visit Inpatient E&M: 79192 Disch Hosp
--- NOTE | 2018-04-16 09:20 | DS.PCM_ITS ---
Discharge Date and Diagnosis Date of Admission: 04/14/18 Date of Discharge: 04/16/18 - Primary Discharge Diagnosis Active and Suspected Problems Ureteral stenosis, right (Acute) Ureteral stenosis, left (Acute) Bilateral hydronephrosis (Acute) Hydroureter on left (Acute) Hydroureter on right (Acute) Acute kidney injury (Acute) Encounter for fitting of ureteral stent (Acute) - Secondary Discharge Diagnosis Chronic Problems Chest pain on exertion (Chronic)associated with SOB History of bladder cancer (Chronic) Hematuria (Chronic) Depression (Chronic) Pulmonary nodule (Chronic) - R base, requires follow up Hypertension (Chronic) GERD (gastroesophageal reflux disease) (Chronic) Peripheral vascular disease (Chronic) has had a stent left groin Tobacco dependence (Chronic) Enlarged prostate (Chronic) Hospital Course and Treatment Imaging Results: Laboratory Results - last 24 hr 04/16/18 04/16/18 05:55 05:55 WBC 6.7 RBC 4.53 L Hgb 13.8 Hct 40.2 MCV 88.7 MCH 30.5 MCHC 34.3 RDW 13.2 RDW Differential 42.5 Plt Count 173 MPV 10.8 Immature Gran % (Auto) 0.100 Neut % (Auto) 63.9 Lymph % (Auto) 23.0 [place] % (Auto) 11.0 H Eos % (Auto) 1.6 Baso % (Auto) 0.4 Absolute Neuts (auto) 4.3 Absolute Lymphs (auto) 1.55 Total Counted Not Reportable Sodium 143 Potassium 3.9 Chloride 111 H Carbon Dioxide 24.0 Anion Gap 8 BUN 25 H Creatinine 1.40 H Estim Creat Clear Calc 57.07 Est GFR (MDRD) Af Amer 65 Est GFR (MDRD) Non-Af 54 L BUN/Creatinine Ratio 17.9 Glucose [address] Jose Juan Fields-urology Operations: - - Cystoscopy with bilateral ureteral stent placement Procedures: None Summary of Care Provided: The patient is a 68 year old M with a past medical history of hypertension , GERD, bladder cancer, BPH, CULLEN (noncompliant with CPAP), hyperlipidemia and tobacco dependence who presented to an outside ER complaining of sudden onset of back pain the previous night. CT scan of the abdomen and pelvis at the outside ER showed bilateral hydronephrosis and bilateral hydroureter. An incidental finding was a pulmonary nodule in the Right base. Creatinine was increased at 2.14. White cell count was 9.2 and the hemoglobin was 16.4 with normal platelets. Electrolytes were unremarkable. Urine showed 6-10 WBCs per high-power field and 11-25 WBCs per high-power field. His urologist, Dr. Jose Juan Fields, was contacted and the patient transferred to [facility]. He told me that he had hematuria ever since his cystoscopy in November 2017 for excision of a bladder CA. He had urinary hesitancy while at the outside ER but, this improved with IV fluids and a post void bladder residual at [facility] was < 100. He denied fevers, shaking chills, dysuria, cough, shortness of breath. Vital signs at presentation to [facility] were temperature 97.7 , heart rate 64, blood pressure 163/86, respiratory rate 16 and he is 96-98% saturated on room air. He also revealed to me while doing his H&P that he has been having chest discomfort when running or exerting himself and that this was associated with SOB. He has no had a stress test for many years. He was take to the OR on 04/15 for cystoscopy. There was no obvious recurrent bladder mass. There was scar tissue at the ureteral orifices which was resected and biopsied and then bilateral ureteral stents were placed. The biopsy report showed focal chronic cystitis with no recurrence of malignancy. On 04/16/2018 he was afebrile and felt well. His urine had a mild pink tinge. He was discharged home and will follow up with Dr. Fields in the office in 1 week. Creatinine at discharge was 1.4. He will follow up with Dr. Moralez in the office in [address] scan of the chest was ordered by Dr. God[place] without contrast however to better evaluate a lung nodule the CT scan should be done with contrast. A plain x-ray also showed a nodule in the posterior right lower lung field and it measured 1.6 x 1.3 on the plain film. There was an abnormality present in the same area on his CT scan of the abdomen and pelvis done in October 2017. This will need to be followed. He was referred to Dr. Timmy Lira and should have a CT scan with contrast when the creatinine has recovered. Mr. Sanchez is chronically depressed and has tried many different antidepressants in the past with no significant improvement. After discussing with him what he had tried in the past we agreed on a trial of Cymbalta and he was given a RX for 30 mg capsules. He will take 30 mg daily for 2 weeks and if he has no advers SE's will increase the dose to 60 mg daily which is a more therapeutic dose. Smoking and ETOH cessation counselling was given in the hospital. This note was generated with [employer] dictation software. It may contain incorrect words, spelling, and punctuation that were not noted in checking the note before signing. Discharge Activity: Return to Normal Activity Call your doctor if you observe: Fever of 101 or Higher, Inability to urinate, Shortness of breath, Dizziness, Fainting spells, Swelling in the ankles, Chest pain, Increased palpitations (irregular heartbeat), Calf discomfort, Uncontrolled pain Home Medications: Medications to take at Discharge Aspirin E.C. [Ecotrin] 81 mg PO DAILY@0800 12/03/17 Cholecalciferol (Vitamin D3) [Vitamin D3] 1,000 unit PO PRN PRN 12/03/17 Pantoprazole Sodium [Protonix] 40 mg PO PRN PRN 12/03/17 Finasteride [Proscar] 5 mg PO DAILY 04/14/18 Tamsulosin HCl [Flomax] 0.4 mg PO BID 04/14/18 Amlodipine [Norvasc] 5 mg PO DAILY #30 tab 04/16/18 Duloxetine Hcl [Cymbalta] 30 mg PO DAILY #30 cap 04/16/18 Oxycodone HCl/Acetaminophen [Percocet 5/325] 1 - 2 tab PO Q6H PRN PRN 7 Days # 40 tab 04/16/18 Following Prescrptions Were Given to Patient: Oxycodone HCl/Acetaminophen [Percocet 5/325] 1 - 2 tab PO Q6H PRN PRN 7 Days # 40 tab PRN Reason: Pain Amlodipine [Norvasc] 5 mg PO DAILY #30 tab Duloxetine Hcl [Cymbalta] 30 mg PO DAILY #30 cap Primary Care Physician: Donell Moralez MD [Primary Care Provider] - Please follow up with your Primary Care Physician in: 2 weeks Please Follow Up With: Jackson Fields MD When: 1 week Please Follow Up With: Timmy Lira DO When: 2 weeks to evaluate the pulmonary nodule Disposition: Home Minutes spent on discharge:: 30 Patient Condition:: Good Medical Necessity - Tobacco Use Smoking Status: Current every day smoker Tobacco Use: Cigarettes Meaningful Use Info Meaningful Use Diagnoses (Choose all that apply): None applicable Code Visit Inpatient E&M: 23438 Disch Hosp
[2018-04-16 09:44] VITALS: BP 158/88; PULSE 70; RESP 18; TEMP 36.8; O2SAT 98
== END 2018-04-16 09:58 | disposition home or self-care (01) | DRG 669 ==
LOC: ED 11:42 → MS3 12:40 → ED 14:04 → MS3 14:08
PROVIDERS: Urology; Admitting Provider Internal Medicine; Emergency Provider Emergency Medicine; Family Provider Family Medicine; PCP Family Medicine; Visit Provider Internal Medicine
PROC: 0TBB8ZZ Excision of Bladder, Via Natural or Artificial Opening Endoscopic (ICD-10-PCS; principal; 2018-04-15 12:35)
DX: N13.1 Hydronephrosis with ureteral stricture, not elsewhere classified (principal); K21.9 Gastro-esophageal reflux disease without esophagitis; N17.9 Acute kidney failure, unspecified; G47.33 Obstructive sleep apnea (adult) (pediatric); F17.210 Nicotine dependence, cigarettes, uncomplicated; I10 Essential (primary) hypertension; Z85.51 Personal history of malignant neoplasm of bladder; R91.1 Solitary pulmonary nodule; I73.9 Peripheral vascular disease, unspecified; F32.9 Major depressive disorder, single episode, unspecified; N40.0 Benign prostatic hyperplasia without lower urinary tract symptoms
CPT/HCPCS: 36415; 71046; 76000; 80048; 80053; 80061; 83735; 84100; 85025; 88307; 93005; 97802; 99284; 99406; J7120; C1769; C2617; J0744

== ENCOUNTER → 2018-04-29 13:57 | Outpatient (CLI) | payer MEDICARE, MEDICAID, SELFPAY ==
[2018-04-29 15:56] LABS: Absolute Lymphocyte Count 1.45 X10^3/ul (0.83-4.51); Absolute Neutrophil Count 4.5 X10^3/uL (2.0-7.7); Basophil# 0.03 X10^3/uL; Basophil% 0.4 % (0-1); Eosinophil# 0.07 X10^3/uL; Hematocrit 44.2 % (40-54); Hemoglobin 15.4 g/dl (13.0-16.5); Lymphocyte # 1.45 X10^3/ul (4.0); Lymphocyte % 21.2 % (19-41); Mean Corp Hgb Conc 34.8 g/gl (32-36); Mean Corpuscular Hgb 30.6 pg (27.0-32.0); Mean Corpuscular Volume 87.9 fL (80-94); Mean Platelet Vol. 10.7 fl (6.2-12.0); Monocyte# 0.75 X10^3/uL; Neutrophil # 4.52 X10^3/uL (2.7-7.7); Neutrophil % 66.1 % (47-70); Platelet Count 264 K/mm3 (150-450); RBC Distribution Width CV 13.6 % (11.6-14.6); RBC Distribution Width SD 43.2 fl (35.1-43.9); Red Blood Count 5.03 M/mm3 (4.6-6.2); White Blood Count 6.8 K/mm3 (4.4-11.0)
[2018-04-29 16:00] LABS: POSITIVE COUNT NO; POSITIVE DIFFERENTIAL NO; POSITIVE MORPHOLOGY NO
[2018-04-29 16:19] LABS: Anion Gap 9 (5-15); BUN 19 mg/dL (7-18); Calcium,Total 8.9 mg/dL (8.5-10.1); Chloride 106 mmol/L (98-107); Creatinine, Serum 1.19 mg/dL (0.70-1.30); EST Glomerular Filtration Rate 65 mL/min (>60); Est Glom Filt Rate - Afr Amer 78 mL/min (>60); Glucose 85 mg/dL (74-106); Potassium 4.2 mmol/L (3.5-5.1); Sodium Level 140 mmol/L (136-145)
== END ==
PROVIDERS: Family Provider Family Medicine; PCP Family Medicine; Visit Provider Family Medicine
DX: N17.9 Acute kidney failure, unspecified (principal); R31.9 Hematuria, unspecified
CPT/HCPCS: 36415; 80048; 85025

== ENCOUNTER → 2018-06-18 13:01 | Outpatient (CLI) | payer MEDICARE, MEDICAID, SELFPAY ==
--- NOTE | 2018-06-18 13:03 | CT_ITS ---
STUDY: CT CHEST WITHOUT CONTRAST REASON FOR EXAM: Male, 68 years old. Follow-up lung nodule right lower lobe RADIATION DOSAGE (If Supplied By Facility): CTDIvol = ( 11.33 ) mGy, DLP = ( 427.08 ) mGycm TECHNIQUE: Transaxial imaging was performed without the administration of intravenous contrast material. Coronal and sagittal 2-D MPR Individualized dose optimization techniques were used for this CT. COMPARISON: X-ray chest 04/15/2018. CT abdomen and pelvis dictated report 10/28/2017 and 08/06/2015.. FINDINGS: Note: On the prior CT abdomen and pelvis of 10/28/2017 there was described a soft tissue density with questionable internal cavitation in the right posterior costophrenic angle of the lung. On the CT study of 08/14/2015, a 1.4 cm spiculated density was described in the peripheral aspect of the right lower lobe abutting the pleural surface with features favoring scar. Supraclavicular: Normal thyroid, no mass or lymphadenopathy. Body wall soft tissues: No acute process. Osseous structures: Osteopenia, mild scoliosis, mild thoracic spondylosis, slight scoliosis. No acute osseous process. Upper abdomen: There are multiple punctate calcifications within the spleen consistent with old granulomatous disease. There is no acute process of the upper abdomen. Mediastinum: There is a moderate sliding hiatal hernia containing a portion of the gastric fundus. The esophagus is normal. There are small partially calcified lymph nodes of the mediastinum and density calcified lymph nodes of the right hilum consistent with old granulomatous disease. There is no acute lymphadenopathy. Heart: Normal in size without effusion. Three-vessel coronary calcifications. 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 Mild arch atherosclerosis. Pulmonary arteries: Nondilated. Lungs: Centrilobular emphysema. Apical scar bilaterally. Several scattered calcified pulmonary nodules consistent with old granulomatous disease. In the deep sulcus of the right lower lobe posterior basilar segment, there is a pleural-based soft tissue density opacity measuring approximately 1.5 cm craniocaudal, 1.2 cm transverse and 2.1 cm anterior-posterior. At its margin, minimal 1.2 cm focus of honeycombing along the pleural reflection. Immediately medial to this, a small region of groundglass opacities and interlobular septal thickening. Overall, this pattern favors scar rather than a neoplastic process. CT/Chest without Contrast IMPRESSION: The process abutting the pleura in the deep sulcus of the right lower lobe posterior basilar segment has indolent features, favoring scar. Comparison to the prior CT scans of 2017 and 2014 is desired. A similar process was mentioned on each of those scans. It would be helpful to determine if this process is long-term stable. A request has been submitted for the comparative images. If available, an addendum will be issued to this report. There is no other acute cardiopulmonary process. Multiple chronic findings are detailed within the body of the report. 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 Electronically Signed: Shantanu Gandhi, at 14:48 EDT Tel , Service support ,
== END ==
PROVIDERS: Family Provider Family Medicine; PCP Family Medicine; Visit Provider Internal Medicine Critical Care Medicine
DX: R91.1 Solitary pulmonary nodule (principal)
CPT/HCPCS: 71250

== ENCOUNTER → 2018-07-10 07:38 | Outpatient (CLI) | payer MEDICARE, MEDICAID, SELFPAY | PROVIDERS: Family Provider Family Medicine; PCP Family Medicine; Visit Provider Urology | DX: N39.0 Urinary tract infection, site not specified (principal); R50.9 Fever, unspecified | CPT/HCPCS: 87086; 87088 ==

== ENCOUNTER 2018-07-15 16:55 | Inpatient (IN) | payer MEDICARE, MEDICAID, SELFPAY ==
[2018-07-08 13:12] VITALS: BP 127/73; PULSE 78; RESP 17; TEMP 37.7; O2SAT 97; BMI 24.1
[2018-07-08 14:56] LABS: Hematocrit 42.2 % (40-54); Hemoglobin 14.2 g/dl (13.0-16.5); Mean Corp Hgb Conc 33.6 g/gl (32-36); Mean Corpuscular Hgb 30.8 pg (27.0-32.0); Mean Corpuscular Volume 91.5 fL (80-94); Mean Platelet Vol. 10.5 fl (6.2-12.0); Platelet Count 221 K/mm3 (150-450); RBC Distribution Width CV 14.2 % (11.6-14.6); RBC Distribution Width SD 47.8 fl (35.1-43.9); Red Blood Count 4.61 M/mm3 (4.6-6.2); Scan Indicated on CBC? Y/N NO; White Blood Count 11.3 K/mm3 (4.4-11.0)
[2018-07-08 15:33] LABS: ALB/GLOB Ratio 0.6 RATIO (0.9-2.4); AST(SGOT) 16 U/L (15-37); Alanine Aminotransfer ALT/SGPT 25 U/L (16-61); Albumin, Serum 2.9 g/dL (3.2-5.0); Alkaline Phosphatase 116 U/L (45-117); Anion Gap 11 (5-15); BUN 22 mg/dL (7-18); BUN/Creat Ratio 18.3 RATIO (10-20); Calcium,Total 9.1 mg/dL (8.5-10.1); Chloride 104 mmol/L (98-107); EST Glomerular Filtration Rate 64 mL/min (>60); Est Glom Filt Rate - Afr Amer 77 mL/min (>60); Estimated Creatinine Clearance 66.58 ml/min; Globulin 4.8 g/dL (2.2-4.2); Glucose 97 mg/dL (74-106); Potassium 3.7 mmol/L (3.5-5.1); Protein, Total 7.7 g/dL (6.4-8.2); Sodium Level 141 mmol/L (136-145)
[2018-07-15] VITALS (10 sets, daily range): BP systolic 113–164; BP diastolic 62–80; PULSE 60–80; RESP 14–16; TEMP 36.3–36.8; O2SAT 92–97; BMI 24.1
[2018-07-15] MEDS: Cefazolin 2 GM in 0.9% Normal Saline 100 ML IV (14:02)
[2018-07-15] MEDS: Bupivacaine Mpf 0.5% 30 ML VIAL (16:00)
--- NOTE | 2018-07-15 16:16 | PCM.OPRPT ---
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 and develop stricture of the distal right ureter after resection of tumor Post-Operative Diagnosis: Same Surgery/Procedure Performed:: Cystoscopy, laparoscopic robotic assisted right ureteral neocystostomy, right stent placement Description of Surgical Findings:: There is a 68-year-old male has a long history of smoking who presented to the office was found to have a cancer involving the trigone and overlying both the ureteral orifices the tumor was resected completely at the require resection of the ureteral orifices stents were placed and then removed the scarred down so stretch the ureters again place stents again and this time the left ureter stay nice and open but the right ureter scar down again developed hydronephrosis on the right side. So today were to do a right sided reimplantation of the ureter into the bladder to restore drainage of the right kidney. 68-year-old male taken back to the operating room at the smooth induction of anesthesia he was placed supine on the table the abdomen was prepped and draped in usual sterile fashion the penis as well, I first went into the bladder the 21 [place] rigid cystourethroscope inspected the inside of the bladder did not identify any visible and active tumors within the bladder I could identify the left ureteral orifice, which is nice and open and patent and draining, I then drained the bladder put a catheter in the bladder we then went up to the abdomen is small incision above the umbilicus and insufflated the peritoneal cavity with CO2 gas placed the camera trocar and then my right arm trocar and left arm trocar and then we placed an air seal port the docked the robot we first released the sigmoid colon off the lateral sidewall the pelvis I then incised the peritoneum then dissected down until I found a dilated ureter crossing over the vessels headed towards the bladder I dissected along the ureter all the way down to 8 got into the bladder he could see it scarring down of the went to the bladder we placed a clip on the ureter and then transected the ureter here I then dropped the bladder created the space of Retzius and then put the bladder on lateral traction in order to do the reinflation limitation of the ureter on the posterior lateral side of the bladder the assistant professor sculpture held the bladder laterally I opened up the bladder muscle until I got to the mucosal layer I then placed my first stay stitch between the spatulated ureter and the anastomotic site on the bladder once the ureter was lined up with the bladder then we opened up the bladder made a small incision in the bladder mucosa to line up with the ureteral orifice on the ureter to do a re-anastomosis of the ureter into the bladder we then used stitches to perform an anastomosis of the ureter to the bladder interrupted fashion all the way around this was done over a stent stent was placed by placing a wire up the left ureter and then advancing the stent once a stent was in good position we docked the stent into the bladder and we finished this and the anastomosis around the stent that this point the anastomosis was checked we filled the bladder with water and there was no leakage from the anastomosis is good refluxing water going up the ureter. Once the anastomosis was checked is watertight we left a catheter in place to gravity gravity drainage left the anastomosis in place the bladder was left in place we did not recheck the bladder back up in the ureter was non-kinked ureter was then draining right into the bladder we then used a Elbert Rachel stitch closed the 10 mm supra umbilical port and all the other ports were 8 mm today were closed and removed from the abdomen Steri-Strips and dressings a subcuticular stitches were placed patient anesthetic was reversed is taken back to the PACU in good condition stay overnight in the hospital discharge home tomorrow in follow-up in a week for checkup. Type of Anesthesia:: General Drains: stent and buitrago. - Admit VTE Documentation VTE Present on Admission: No VTE Mechan Device Prophylaxis: SCD's VTE Pharm Prophylaxis ordered?: No
[2018-07-15] MEDS: 0.9% NaCl Peripheral Flush Adult/Peds IV ×2 (18:27→21:24)
[2018-07-15] MEDS: Ketorolac 15 MG/ML Vial IV (18:27)
[2018-07-15] MEDS: Tamsulosin HCl 0.4 MG Capsule PO (18:27)
[2018-07-15] MEDS: Lactated Ringers 1,000 ML 125 ML IV (20:52)
[2018-07-15] MEDS: Docusate Sodium 100 MG Capsule 200 MG PO (21:21)
[2018-07-15] MEDS: Ciprofloxacin 500 MG Tablet PO (21:21)
[2018-07-16] MEDS: Ketorolac 15 MG/ML Vial IV ×2 (00:03→06:39)
[2018-07-16 02:30] VITALS: BP 122/63; PULSE 61; RESP 18; TEMP 36.7; O2SAT 97
[2018-07-16] MEDS: Acetaminophen 325 MG Tablet PO (02:33)
[2018-07-16] MEDS: Lactated Ringers 1,000 ML 125 ML IV (04:30)
[2018-07-16 06:16] LABS: Hematocrit 37.8 % (40-54); Mean Corp Hgb Conc 34.4 g/gl (32-36); Mean Corpuscular Hgb 31.4 pg (27.0-32.0); Mean Corpuscular Volume 91.3 fL (80-94); Platelet Count 430 K/mm3 (150-450); RBC Distribution Width CV 13.4 % (11.6-14.6); RBC Distribution Width SD 44.1 fl (35.1-43.9); Red Blood Count 4.14 M/mm3 (4.6-6.2); White Blood Count 13.2 K/mm3 (4.4-11.0)
[2018-07-16 06:18] LABS: Scan Indicated on CBC? Y/N NO
[2018-07-16 06:37] LABS: Anion Gap 9 (5-15); BUN 29 mg/dL (7-18); BUN/Creat Ratio 19.1 RATIO (10-20); Calcium,Total 8.6 mg/dL (8.5-10.1); Chloride 104 mmol/L (98-107); Creatinine, Serum 1.52 mg/dL (0.70-1.30); EST Glomerular Filtration Rate 49 mL/min (>60); Est Glom Filt Rate - Afr Amer 59 mL/min (>60); Estimated Creatinine Clearance 52.57 ml/min; Glucose 117 mg/dL (74-106); Potassium 4.7 mmol/L (3.5-5.1); Sodium Level 139 mmol/L (136-145)
[2018-07-16] MEDS: 0.9% NaCl Peripheral Flush Adult/Peds IV (06:41)
--- NOTE | 2018-07-16 07:39 | PCM.DC.URO ---
Discharge Diet: Light diet - advance as tolerated Discharge Activity: May not drive while taking narcotic pain medications. Return to work on:: 08/13/18 May resume sexual activity in: 6 weeks Call your doctor if your incision/area has: Continuous Slow Oozing, Sudden Increased Bleeding, Increased Pain/ Swelling, Increased Redness, Foul Smelling Discharge, Swelling at the incision site Call your doctor if you observe: Fever of 101 or Higher, Uncontrolled pain Suture Line Care: Avoid Pulling/Pushing, Avoid Pinching/Bending Catheter: Patel to leg bag, Patel to large bag Drain: Wendel Allergies/Adverse Reactions: Allergies bupropion [From Wellbutrin] Allergy (Verified 07/08/18 13:05) Unknown cephalexin [From Keflex] Allergy (Verified 07/08/18 13:05) Unknown Penicillins Allergy (Verified 07/08/18 13:05) Unknown Medications to take at Discharge Aspirin E.C. [Ecotrin] 81 mg PO DAILY@0800 12/03/17 Pantoprazole Sodium [Protonix] 40 mg PO DAILY PRN PRN 12/03/17 Finasteride [Proscar] 5 mg PO DAILY 04/14/18 Tamsulosin HCl [Flomax] 0.4 mg PO BID 04/14/18 Amlodipine [Norvasc] 5 mg PO DAILY #30 tab 04/16/18 Ciprofloxacin [Cipro] 500 mg PO BID #14 tab 07/15/18 Docusate Sodium [Colace] 100 mg PO BID #20 cap 07/15/18 Hydrocodone/Acetaminophen [[place] 5-325 Tablet] 1 ea PO Q4H PRN PRN 5 Days #14 tab 07/15/18 The following prescriptions were given: Hydrocodone/Acetaminophen [[place] 5-325 Tablet] 1 ea PO Q4H PRN PRN 5 Days #14 tab PRN Reason: Pain Ciprofloxacin [Cipro] 500 mg PO BID #14 tab Docusate Sodium [Colace] 100 mg PO BID #20 cap Primary Care Physician: Donell Moralez MD [Primary Care Provider] - Test Results: Test results from this visit will be discussed in further detail at your follow-up appointment, if applicable. Please Follow Up With: Jackson Fields MD When: Make an appt next thrusday to see me.
[2018-07-16 08:30] VITALS: BP 151/81; PULSE 72; RESP 18; TEMP 36.7; O2SAT 100
[2018-07-16] MEDS: Docusate Sodium 100 MG Capsule 200 MG PO (08:34)
[2018-07-16] MEDS: Finasteride 5 MG Tablet PO (08:34)
[2018-07-16] MEDS: Ciprofloxacin 500 MG Tablet PO (08:34)
[2018-07-16] MEDS: amLODIPine 5 MG Tablet PO (08:34)
[2018-07-16] MEDS: Tamsulosin HCl 0.4 MG Capsule PO (08:34)
[2018-07-16] MEDS: Pantoprazole Sodium 40 MG Tablet PO (08:40)
[2018-07-16] MEDS: HYDROcodone Bitartrate/Apap 5/325 Tablet PO (08:40)
== END 2018-07-16 11:15 | disposition home or self-care (01) | DRG 660 ==
LOC: SDC 16:56 → MS2 19:07
PROVIDERS: Admitting Provider Urology; Family Provider Family Medicine; PCP Family Medicine; Visit Provider Urology
PROC: 0T164ZB Bypass Right Ureter to Bladder, Percutaneous Endoscopic Approach (ICD-10-PCS; principal; 2018-07-15 11:45)
DX: N13.1 Hydronephrosis with ureteral stricture, not elsewhere classified (principal); Z85.51 Personal history of malignant neoplasm of bladder; F17.200 Nicotine dependence, unspecified, uncomplicated
CPT/HCPCS: 36415; 71046; 80048; 80053; 85027; 86850; 86900; 86920; 86922; 93005; J7120; A4216; C1769; C2617

== ENCOUNTER → 2018-07-23 11:49 | Outpatient (CLI) | payer MEDICARE, MEDICAID, SELFPAY ==
[2018-07-23 13:15] LABS: Hematocrit 41.9 % (40-54); Hemoglobin 14.3 g/dl (13.0-16.5); Mean Corp Hgb Conc 34.1 g/gl (32-36); Mean Corpuscular Hgb 30.7 pg (27.0-32.0); Mean Corpuscular Volume 89.9 fL (80-94); Platelet Count 471 K/mm3 (150-450); RBC Distribution Width CV 14.2 % (11.6-14.6); RBC Distribution Width SD 46.5 fl (35.1-43.9); Red Blood Count 4.66 M/mm3 (4.6-6.2)
[2018-07-23 13:16] LABS: Scan Indicated on CBC? Y/N NO
[2018-07-23 13:52] LABS: Anion Gap 10 (5-15); BUN 24 mg/dL (7-18); BUN/Creat Ratio 19.5 RATIO (10-20); Calcium,Total 9.4 mg/dL (8.5-10.1); Chloride 105 mmol/L (98-107); Creatinine, Serum 1.23 mg/dL (0.70-1.30); EST Glomerular Filtration Rate 62 mL/min (>60); Est Glom Filt Rate - Afr Amer 75 mL/min (>60); Glucose 93 mg/dL (74-106); Potassium 4.1 mmol/L (3.5-5.1); Sodium Level 137 mmol/L (136-145)
== END ==
PROVIDERS: Family Provider Family Medicine; PCP Family Medicine; Visit Provider Urology
DX: C67.9 Malignant neoplasm of bladder, unspecified (principal)
CPT/HCPCS: 36415; 80048; 85027

== ENCOUNTER 2018-07-30 19:36 | Inpatient (IN) | payer MEDICARE, MEDICAID, SELFPAY ==
[2018-07-30 19:37] VITALS: BP 122/62; PULSE 98; RESP 16; TEMP 37.3; O2SAT 98; BMI 25.2
--- NOTE | 2018-07-30 20:03 | CT_ITS ---
STUDY: CT BRAIN WITHOUT CONTRAST REASON FOR EXAM: Male, 68 years old. Fever x4 weeks, chills, dizziness RADIATION DOSAGE (If Supplied By Facility): CTDIvol = ( 44.99 ) mGy, DLP = ( 762.36 ) mGycm TECHNIQUE: Transaxial CT imaging of the brain was performed without administration of intravenous contrast material. Individualized dose optimization techniques were used for this CT. COMPARISON: None. FINDINGS: Normal soft tissue structures. Normal calvarium. Normal size ventricles and extra-axial spaces for the patient's age. Normal white matter tracts of the cerebral hemispheres. Normal basal ganglia and thalami. Normal brainstem. Normal cerebellum. There is no intracranial hemorrhage. There are no findings of an acute ischemic infarction. There is minimal mucosal thickening of the right maxillary sinus. There is opacification of a posterior left ethmoid air cell. CT/Brain/Head without Contrast IMPRESSION: Mild chronic sinusitis. There is no intracranial hemorrhage or evidence of infarct. Electronically Signed: Carlos Manuel Davis MD at 21:15 EDT , Service support ,
--- NOTE | 2018-07-30 20:04 | EKG12_ITS ---
Test Reason : DIZZINESS Blood Pressure : / mmHG Vent. Rate : 086 BPM Atrial Rate : 086 BPM P-R Int : 148 ms QRS Dur : 086 ms QT Int : 366 ms P-R-T Axes : 045 -17 041 degrees QTc Int : 437 ms Sinus rhythm with Premature atrial complexes Otherwise normal ECG Confirmed by BRITTANY HOOVER, EDUARDO ([id number]), make up editor LUC FRANKEL ([id number]) on 08/03/2018 3:05:22 PM Referred By: Jackson Fields Confirmed By:EDUARDO SOTO MD
[2018-07-30 20:20] LABS: Mucous, Urine 0 SEEN /hpf (<or=2+)
[2018-07-30 20:28] LABS: Color, Urine Yellow (Yellow); Glucose, Dipstick Normal (Normal); Ketone-Dipstick Negative (Negative); Leukocyte Esterase-Dipstick 100 /ul (Negative); Nitrite-Dipstick Negative (Negative); Occult Blood-Urine 250 /ul (Negative); Protein-Dipstick 100 mg/dl (Negative); Specific Gravity, Urine 1.015 (1.002-1.030); Urine Bilirubin Dipstick Negative (Negative); Urine Clarity Sl. Cloudy (Clear); Urine Urobilinogen Normal (Normal)
[2018-07-30 20:35] LABS: Red Blood Cells-Urine 25-50 SEEN /hpf (0-5); Squamous Epithelial Cells - UA 5-10 SEEN /hpf (0-5); White Blood Cells 10-25 SEEN /hpf (0-5)
--- NOTE | 2018-07-30 20:35 | RAD_ITS ---
STUDY: X-RAY CHEST REASON FOR EXAM: Male, 68 years old. Multiple complaints TECHNIQUE: PA and lateral views of the chest. COMPARISON: Previous study of 07/08/2018 FINDINGS: ekg monitor leads are present. The lungs are mildly hyperinflated. There is no demonstrated pleural abnormality. Normal size heart. Normal mediastinum and clara. Normal visualized pulmonary arteries. There are calcified plaques of the thoracic aorta. Normal visualized thoracic spine. Normal visualized ribs, clavicles, and shoulders. There is no demonstrated abnormality of the visualized soft tissue structures of the upper abdomen. RAD/Chest PA and Lateral IMPRESSION: Mildly hyperinflated lungs. Calcified plaques of the thoracic aorta. No acute cardiopulmonary disease process is seen. Chest findings are stable in the interval. Electronically Signed: Carlos Manuel Davis MD at 21:12 EDT , Service support ,
[2018-07-30 20:36] LABS: Amorphous Sediment 1+ URATE; Bacteria RARE /hpf (None Seen)
[2018-07-30 20:47] LABS: D-Dimer Quantitative (DVT/PE) 2.64 FEU/ug/m (0.27-0.49)
[2018-07-30 20:49] LABS: Anion Gap 9 (5-15); BUN 27 mg/dL (7-18); BUN/Creat Ratio 16.5 RATIO (10-20); Calcium,Total 9.5 mg/dL (8.5-10.1); Chloride 102 mmol/L (98-107); Creatinine, Serum 1.64 mg/dL (0.70-1.30); EST Glomerular Filtration Rate 45 mL/min (>60); Est Glom Filt Rate - Afr Amer 54 mL/min (>60); Estimated Creatinine Clearance 48.72 ml/min; Glucose 120 mg/dL (74-106); Potassium 3.8 mmol/L (3.5-5.1); Sodium Level 134 mmol/L (136-145)
--- NOTE | 2018-07-30 20:50 | ED.RN ---
lab called with critical lab results. d dimer 2.649. Dr. Wiley made aware no new orders at this time
[2018-07-30 20:53] LABS: Absolute Lymphocyte Count 1.13 X10^3/ul (0.83-4.51); Absolute Neutrophil Count 11.6 X10^3/uL (2.0-7.7); Basophil# 0.02 X10^3/uL; Basophil% 0.1 % (0-1); Hematocrit 41.7 % (40-54); Hemoglobin 14.3 g/dl (13.0-16.5); Lymphocyte # 1.13 X10^3/ul (4.0); Lymphocyte % 7.6 % (19-41); Mean Corp Hgb Conc 34.3 g/gl (32-36); Mean Corpuscular Hgb 30.8 pg (27.0-32.0); Mean Corpuscular Volume 89.7 fL (80-94); Mean Platelet Vol. 10.3 fl (6.2-12.0); Monocyte# 2.16 X10^3/uL; Monocyte% 14.5 % (0-10); Neutrophil # 11.55 X10^3/uL (2.7-7.7); Neutrophil % 77.7 % (47-70); Platelet Count 204 K/mm3 (150-450); RBC Distribution Width CV 14.2 % (11.6-14.6); RBC Distribution Width SD 46.7 fl (35.1-43.9); Red Blood Count 4.65 M/mm3 (4.6-6.2); White Blood Count 14.9 K/mm3 (4.4-11.0)
[2018-07-30 21:00] LABS: Differential Indicated SCAN CRITERIA MET; POSITIVE COUNT NO; POSITIVE DIFFERENTIAL YES; POSITIVE MORPHOLOGY NO
[2018-07-30 21:22] LABS: Differential Comment SCANNED
[2018-07-30 22:12] VITALS: PULSE 89; RESP 25; O2SAT 95
--- NOTE | 2018-07-30 22:16 | CT_ITS ---
STUDY: CTA CHEST REASON FOR EXAM: Male, 68 years old. Chest pain, shortness of breath, elevated d-dimer, fever and dizziness x4 weeks RADIATION DOSAGE (If Supplied By Facility): CTDIvol = ( 14.21 ) mGy, DLP = ( 579.04 ) mGycm TECHNIQUE: The examination was performed with the intravenous administration of 100ML ml of Isovue 370 contrast material. Post-processing of the angiographic images was performed, with multiplanar reformation and 3D reconstruction. Individualized dose optimization techniques were used for this CT. COMPARISON: None. FINDINGS: Normal enhancement of the main pulmonary artery and right and left pulmonary arteries. Normal enhancement of the bilateral peripheral pulmonary arteries. There is no demonstrated pulmonary embolism. There is borderline dilatation of the main pulmonary artery, measuring up to 3.0 cm. There are calcified plaques of the thoracic aorta. There is mild mural thrombus of the descending thoracic aorta. There is no demonstrated aortic dissection. The heart size is within normal limits. Coronary arterial calcifications are present. There is no pericardial effusion. Normal mediastinum. There are calcified right hilar nodes. Normal visualized trachea and bronchi. The lungs are well expanded. Moderately severe diffuse emphysematous changes of the lungs are seen. There are numerous scattered bilateral calcified granulomas. There is a spiculated 1.2 cm nodule of the posterior right costophrenic sulcus, appearing similar to the previous study. There are mild fibrotic changes of the posterior lung bases. There is no pleural effusion or significant pleural thickening. Normal chest wall structures. There is Schmorl's node formation of the superior endplate of T12 which is of no clinical significance. There is a large hiatal hernia with abdominal fat also noted within the hernia sac. There are numerous calcified splenic granulomas. CT/CTA Chest W/WO Contrast IMPRESSION: Normal CTA chest examination, without a demonstrated pulmonary embolism or arterial dissection. Borderline dilatation of the main pulmonary artery measuring up to 3.0 cm. Calcified plaques of the thoracic aorta. There is mild mural thrombus of the descending thoracic aorta. Scattered calcified pulmonary granulomas are seen bilaterally. There are calcified right hilar nodes. Moderate diffuse emphysematous changes of the lungs. Spiculated 1.2 cm nodule of the posterior right costophrenic sulcus, appearing similar to the previous study. Large hiatal hernia with abdominal fat also noted within the hernia sac. Electronically Signed: Carlos Manuel Davis MD at 23:52 EDT , Service support ,
[2018-07-30] MEDS: Ceftriaxone 1 GM/50 ML BAG IV (22:29)
[2018-07-30 22:38] LABS: Lactic Acid 1.4 mmol/L (0.4-2.0)
[2018-07-31] VITALS (14 sets, daily range): BP systolic 104–131; BP diastolic 56–99; PULSE 71–96; RESP 16–18; TEMP 36.6–39.3; O2SAT 93–100; BMI 23.0
--- NOTE | 2018-07-31 00:11 | ED.DCSUM_ITS ---
- ER Visit Summary Date of Service: 07/31/18 Chief Complaint: Fever chills dysuria History of Present Illness: The patient is a 68 M who presents with numerous symptoms which include dizziness, blurred vision, difficulty walking, nausea and vomiting, dysuria since placement of stent and robotic surgery. Patient reported trouble with vision and vertigo with walking to the left. He states he was unable to walk to the right. This lasted approximately 15 minutes. He presently has no problem with balance, vertigo or nausea. He does complain of subjective fever and temperature documented to 100?F. He also complained of chills and sweats. He denied any trouble with speech or swallowing. He denied chest pain, palpitations or rapid heartbeat. He did complain of dyspnea, cough and dyspnea on exertion. He is a smoker and has history of lung problems. He reports abdominal pain with nausea without vomiting or diarrhea. He reports generalized weakness. Physical Examination: Vital signs noted and respiratory is 25. He is not febrile nor is he hypoxic. Head is atraumatic normocephalic. Pupils are equal round reactive. Extraocular muscles are intact. TMs are pearly white with landmarks noted. Nares patent with no drainage. Posterior pharynx without erythema or exudate. Uvula is midline. There is no dysphonia or dysphasia. Trachea is midline. There is no stridor with auscultation of the neck. Lungs reveal wheezing bilaterally. Expiratory phase is prolonged. Abdomen is soft with minimal tenderness. Incision site is intact without evidence infection. There is no CVA tenderness noted. Penis is not circumcised. Neuro exam is nonfocal. And specifically, patient's gait was observed and normal. So were testing was normal. Test Results: CT of the head reveals no acute process. Chest x-ray reveals chronic changes with no infiltrate. CTA of the chest reveals no pulmonary embolus, dissection. There is a 1.2 cm percolated nodule noted and unchanged. 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 White count is elevated at 14.9 thousand with 78 segs no bands. BUN and creatinine are 27 and 1.64 respectively with a GFR of 45. UA reveals pyuria with 10-25 WBCs 25-50 RBCs and 1+ bacteria. Lactate is normal at 1.4. D-dimer was elevated 2.64. Emergency Department Course and Treatment: With patient's constellation of symptoms need to evaluate for UTI/sepsis. With complaint of visual disturbance and walking to the left and complaining of problems with balance need to rule out intracranial bleed/ischemic stroke. Onset unknown. In light of urinalysis urine culture was obtained and he received 1 g of Rocephin. The flex o writer operator was asked to page Dr. Fields. I was informed he is out until August 03 and has no backup coverage. Treatment Plan: IV antibiotics, further neurologic workup Disposition: PCU Impression: 1. Vertigo evaluate for cerebellar infarct 2. Urinary tract infection 3. Renal insufficiency 4. Recent diagnosis of bladder cancer 5. Hydronephrosis secondary to ureteral stricture This note was generated with [employer] dictation software. It may contain incorrect words, spelling, and punctuation that were not noted in review of the chart prior to signing ED Disposition - Plan for ED Patient: Chief Complaint: Dizziness Referrals: Donell Moralez MD [Primary Care Provider] -
--- NOTE | 2018-07-31 00:22 | HP.PCM_ITS ---
Problem List (1) Acute pyelonephritis Status: Acute (2) History of bladder cancer Status: Chronic (3) Ureteral stenosis, right Status: Acute (4) Tobacco dependence Status: Chronic History of Present Illness Date of Admission: 07/31/18 Chief Complaint: Fever, chills and dysuria ?4 weeks. The patient is a 68 year old M with a significant history of BPH, bladder cancer status post resection; stricture of distal right ureter after resection of tumor status post ureteral stent; who presents with 4 weeks of fever, chills and dysuria. Patient reports that before before his bladder resection and ureteral stent placement he had these symptoms and these symptoms has continued to persist. Associated with his symptoms is lightheadedness. Further he reports that about 6 days ago he had a 15 minute episode where he had an imbalance and was walking towards his left side. At emergency department because of elevated d-dimer a CTA of his chest was done. A CTA showed no pulmonary embolism but it showed a spiculated 1.2 cm nodule of the posterior right costophrenic sulcus which was similar to previous study; as well as chronic findings. Brain CT did not show any acute pathology. His urinalysis was abnormal. Past Medical History Past Medical History (Chronic Problems): Chronic Problems Chest pain on exertion (Chronic) History of bladder cancer (Chronic) Hematuria (Chronic) Depression (Chronic) Pulmonary nodule (Chronic) Hypertension (Chronic) GERD (gastroesophageal reflux disease) (Chronic) Peripheral vascular disease (Chronic) has had a stent left groin Tobacco dependence (Chronic) Enlarged prostate (Chronic) Medical History: Medical History (Last Reviewed 07/31/18 @ 06:17 by Carlo Farley MD) Chest pain on exertion (Chronic) R07.9 History of bladder cancer (Chronic) Z85.51 Encounter for fitting of ureteral stent (Acute) Z46.6 Ureteral stenosis, right (Acute) N13.5 Ureteral stenosis, left (Acute) N13.5 Hematuria (Chronic) R31.9 Depression (Chronic) F32.9 Bilateral hydronephrosis (Acute) N13.30 Hydroureter on left (Acute) N13.4 Hydroureter on right (Acute) N13.4 Acute kidney injury (Acute) N17.9 Pulmonary nodule (Chronic) R91.1 Hypertension (Chronic) I10 GERD (gastroesophageal reflux disease) (Chronic) K21.9 Peripheral vascular disease (Chronic) I73.9 has had a stent left groin Tobacco dependence (Chronic) F17.200 Enlarged prostate (Chronic) N40.0 Allergies bupropion [From Wellbutrin] Allergy (Verified 07/30/18 19:40) Unknown cephalexin [From Keflex] Allergy (Verified 07/30/18 19:40) Unknown Penicillins Allergy (Verified 07/30/18 19:40) Unknown Home Medications: Ambulatory Orders Medication Instructions Recorded Finasteride [Proscar] 5 mg PO DAILY 04/14/18 Tamsulosin HCl [Flomax] 0.4 mg PO BID 04/14/18 Surgical History: Surgical History (Last Reviewed 07/31/18 @ 06:18 by Carlo Farley MD) History of carpal tunnel surgery of right wrist (Resolved) Z98.890 History of left hip replacement (Resolved) Z96.642 Surgical History: total hip arthroplasty - Left hip, - - Resection of a bladder tumor by Dr. Jose Juan Fields in November 2017, repair of laceration to the right wrist after he put his hand through a window. Stent LLE Psychiatric History: No pertinent psych hx Lives: Alone Smoking Status: Current every day smoker - Smokes L &M light Alcohol: Occasional - *Family History Paternal Family History: Family History (Last Updated 06/11/18 @ 08:29 by Malinda Pappas) Father Heart disease Mother Diabetes History Items: Heart Disease, - - Peripheral vascular disease Review of Systems Constitutional: Reports: Chills, Fever Eyes: Denies: Blurred vision, Pain HEENT: Reports: Difficulty Hearing Cardiovascular: Denies: Chest Pain, Palpitations Respiratory: Denies: Cough, Shortness of breath at rest, Sputum production Gastrointestinal: Reports: Nausea - Nausea one time; occurring a day before admission. Genitourinary: Reports: Dysuria Musculoskeletal: Denies: Joint Pain, Joint Tenderness Skin: Denies: Rash, Wounds Neurological: Reports: Balance problems - Resolved Psychiatric: Denies: Anxiety, Depression, Homicidal Ideations, Suicidal Ideations Hematologic/ Lymphatic: Denies: Easy Bruising, Easy Bleeding VTE Information - Inpt Only VTE Present on Admission: No VTE Mechan Device Prophylaxis: None VTE Pharm Prophylaxis ordered?: Yes Patient Problems: Active and Suspected Problems Acute pyelonephritis (Acute) - Physical Exam General: Alert, Oriented x3, - - Looks sick HEENT: Atraumatic, PERRLA, EOMI, Normocephalic Neck: Supple, No JVD, Negative Carotid Bruits Lungs: Clear to auscultation, Normal air movement Cardiovascular: Regular rate, No murmurs Abdomen: Bowel Sounds Present Extremities: No edema, Capillary Refill Less than 3 Seconds Skin: No rashes, No breakdown Musculoskeletal: No Tenderness to Palpation of Joints or Extremities Neurological: Cranial nerves II-XII grossly intact, - - Poor gait Psych/Mental Status: Normal Affect, Appropriate Vital Signs Temp Pulse Resp BP Pulse Ox 99.2 F H 89 25 H 122/62 H 95 07/30/18 19:37 07/30/18 22:12 07/30/18 22:12 07/30/18 19:37 07/30/18 22:12 Oxygen Delivery Method Room Air Weight: 86.636 kg Body Mass Index (BMI) 25.2 Laboratory Tests Past 24 Hrs 07/30/18 07/30/18 07/30/18 20:15 20:15 20:15 WBC 14.9 H RBC 4.65 Hgb 14.3 Hct 41.7 MCV 89.7 MCH 30.8 MCHC 34.3 RDW 14.2 RDW Differential 46.7 H Plt Count 204 MPV 10.3 Immature Gran % (Auto) 0.100 Neut % (Auto) 77.7 H Lymph % (Auto) 7.6 L [place] % (Auto) 14.5 H Eos % (Auto) 0.0 Baso % (Auto) 0.1 Absolute Neuts (auto) 11.6 H Absolute Lymphs (auto) 1.13 Total Counted Not Reportable Differential Comment SCANNED Diff Path Review May foll D-Dimer Quant (PE/DVT) 2.64 H* Sodium 134 L Potassium 3.8 Chloride 102 Carbon Dioxide 23.0 Anion Gap 9 BUN 27 H Creatinine 1.64 H Estim Creat Clear Calc 48.72 Est GFR (MDRD) Af Amer 54 L Est GFR (MDRD) Non-Af 45 L BUN/Creatinine Ratio 16.5 Glucose 120 H Lactic Acid Calcium 9.5 Urine Color Urine Clarity Urine pH Ur Specific [place] Urine Protein Urine Glucose (UA) Urine Ketones Urine Occult Blood Urine Nitrite Urine Bilirubin Urine Urobilinogen Ur Leukocyte Esterase Urine RBC Urine WBC Ur Squamous Epith Cells Amorphous Sediment Urine Bacteria Urine Mucus 07/30/18 07/30/18 20:15 20:15 WBC RBC Hgb Hct MCV MCH MCHC RDW RDW Differential Plt Count MPV Immature Gran % (Auto) Neut % (Auto) Lymph % (Auto) [place] % (Auto) Eos % (Auto) Baso % (Auto) Absolute Neuts (auto) Absolute Lymphs (auto) Total Counted Differential Comment Diff Path Review D-Dimer Quant (PE/DVT) Sodium Potassium Chloride Carbon Dioxide Anion Gap BUN Creatinine Estim Creat Clear Calc Est GFR (MDRD) Af Amer Est GFR (MDRD) Non-Af BUN/Creatinine Ratio Glucose Lactic Acid 1.4 Calcium Urine Color Yellow Urine Clarity Sl. Cloudy Urine pH 6.0 Ur Specific [place] 1.015 Urine Protein 100 H Urine Glucose (UA) Normal Urine Ketones Negative Urine Occult Blood 250 H Urine Nitrite Negative Urine Bilirubin Negative Urine Urobilinogen Normal Ur Leukocyte Esterase 100 H Urine RBC 25-50 SEEN Urine WBC 10-25 SEEN Ur Squamous Epith Cells 5-10 SEEN Amorphous Sediment 1+ URATE Urine Bacteria RARE Urine Mucus 0 SEEN Assessment/Plan All Active Problems Acute pyelonephritis (Acute) History of carpal tunnel surgery of right wrist (Resolved) History of left hip replacement (Resolved) Encounter for fitting of ureteral stent (Acute) Ureteral stenosis, right (Acute) Ureteral stenosis, left (Acute) Bilateral hydronephrosis (Acute) Hydroureter on left (Acute) Hydroureter on right (Acute) Acute kidney injury (Acute) Chest tightness or pressure (Resolved) The patient is a 68 year old M with a significant history of BPH, bladder cancer status post resection; stricture of distal right ureter after resection of tumor status post ureteral stent; who presents with 4 weeks of fever, chills and dysuria; lightheadedness and a brief episode of poor gait consistent with urinary tract infection; probable acute pyelonephritis. Probable acute pyelonephritis Patient with chills, fever and dysuria with stents in the ureter and history of tumor resection from bladder Review of labs showed a neutrophilic leukocytosis with white count of 14.9. Mild hyponatremia likely due to infection Received ceftriaxone at emergency department Ceftriaxone continued Because patient is a known patient of Dr. Fields; will consult up Donnie. Because his symptoms has persisted for about 1 months we will consult infectious disease to optimize management. Most likely his imbalance and lightheadedness was because of his urinary tract infection however will order MRI to rule out any posterior circulation stroke. Trend CBC SAWYER Creatinine 1.64. Baseline creatinine is around 1.2 BUN over creatinine is less than 20 Likely intrarenal from kidney infection. Received IV fluid at emergency department Maintenance normal saline infusion continued Avoid nephrotoxics Trend BMP BPH Flomax and finasteride continued Tobacco abuse Smokes cigarettes Declined a nicotine patch because he does not think he would withdrawal. Counseled Inpatient consult for smoking cessation. DVT prophylaxis Because of history of cancer, Lovenox ordered. Code Visit Inpatient E&M: 17671 Init Hosp L3
--- NOTE | 2018-07-31 00:43 | NURSING ---
Called ED [facility], Ryan at this time confirm Pt okay to come to PCU.
--- NOTE | 2018-07-31 02:47 | MRI_ITS ---
STUDY: MRI BRAIN WITHOUT CONTRAST REASON FOR EXAM: Male, 68 years old. Drifting to one side with walking. TECHNIQUE: Standardized multiplanar fat and water weighted pulse sequences were obtained. COMPARISON: CT of the head dated July 30, 2018. FINDINGS: There is mild cerebral atrophy with widening of the extra-axial spaces and ventricular dilatation. There are a limited number of small white matter hyperintensities, distributed throughout the deep white matter tracts of the cerebral hemispheres, consistent with mild chronic white matter ischemic changes. Normal T2* images of the brain without demonstrated susceptibility artifact. There is no demonstrated hemosiderin stain. Normal T2* images of the brain without demonstrated susceptibility artifact. There is no demonstrated hemosiderin stain. Normal bilateral basal ganglia. Normal thalami. There is no extra-axial fluid accumulation. Normal flow voids within the major intracranial circulation suggesting patency by spin echo criteria. Normal sella turcica, pituitary gland, infundibular stalk, optic chiasm and hypothalamus. Normal tectal plate and pineal gland. Normal midbrain, boris and medulla. Normal cerebellum. Normal basal cisterns. Normal bilateral temporal bones. Normal bilateral internal auditory canals. No demonstrated orbital abnormality, within the constraints of a routine brain study. There is mucoperiosteal thickening in the right maxillary sinus and bilateral ethmoid sinuses. Normal calvarium and skull base. Normal visualized soft tissue structures. Normal visualized upper cervical spine. MRI/Brain without Contrast IMPRESSION: 1. Involutional changes of the brain, as described above. 2. No MR evidence for acute infarct. Electronically Signed: Yi Klein MD at 9:45 EDT , Service support ,
[2018-07-31] MEDS: 0.9% Normal Saline 1,000 ML 100 ML IV (03:05)
[2018-07-31 07:02] LABS: Anion Gap 8 (5-15); BUN 25 mg/dL (7-18); BUN/Creat Ratio 16.6 RATIO (10-20); Calcium,Total 8.4 mg/dL (8.5-10.1); Chloride 105 mmol/L (98-107); Creatinine, Serum 1.51 mg/dL (0.70-1.30); EST Glomerular Filtration Rate 49 mL/min (>60); Est Glom Filt Rate - Afr Amer 59 mL/min (>60); Estimated Creatinine Clearance 53.91 ml/min; Glucose 135 mg/dL (74-106); Potassium 3.6 mmol/L (3.5-5.1); Sodium Level 136 mmol/L (136-145)
[2018-07-31] MEDS: Finasteride 5 MG Tablet PO (08:21)
[2018-07-31] MEDS: Enoxaparin 40 MG/0.4 ML Syringe SC (08:21)
[2018-07-31] MEDS: Tamsulosin HCl 0.4 MG Capsule PO ×2 (08:21→22:19)
[2018-07-31] MEDS: Ceftriaxone 1 GM/50 ML BAG IV (09:24)
--- NOTE | 2018-07-31 10:47 | PCM.HP.ID ---
Problem List (1) Acute pyelonephritis Status: Acute Reason for Consult: pyelo Consulted by: Dr. Farley History of Present Illness: The patient is a 68 year old M with BPH and bladder cancer s/p resection, then recent R ureteral stent at end of June. Has been having 4 weeks of chills, dysuria, and R sided flank pain. Also with new dizziness. Came to ED, started on ceftriaxone, feeling mildly better this AM. No fever documented here. Full ROS performed and neg except as noted above. - Medical History Past Medical History (Chronic Problems): Chronic Problems (Last Reviewed 07/31/18 @ 06:17 by Carlo Farley MD) Chest pain on exertion (Chronic) History of bladder cancer (Chronic) Hematuria (Chronic) Depression (Chronic) Pulmonary nodule (Chronic) Hypertension (Chronic) GERD (gastroesophageal reflux disease) (Chronic) Peripheral vascular disease (Chronic) has had a stent left groin Tobacco dependence (Chronic) Enlarged prostate (Chronic) Allergies/Adverse Reactions: Allergies bupropion [From Wellbutrin] Allergy (Verified 07/30/18 19:40) Unknown cephalexin [From Keflex] Allergy (Verified 07/30/18 19:40) Unknown Penicillins Allergy (Verified 07/30/18 19:40) Unknown Home Medications: Ambulatory Orders Medication Instructions Recorded Finasteride [Proscar] 5 mg PO DAILY 04/14/18 Tamsulosin HCl [Flomax] 0.4 mg PO BID 04/14/18 - Social History Tobacco Use: cigarettes Vital Signs Temp Pulse Resp BP Pulse Ox 98.8 F 82 16 111/57 L 93 07/31/18 08:05 07/31/18 08:05 07/31/18 08:05 07/31/18 08:05 07/31/18 08:05 Oxygen Delivery Method Room Air Weight: 81.4 kg Body Mass Index (BMI) 23.0 Laboratory Tests Past 24 Hrs 07/31/18 06:15 Sodium 136 Potassium 3.6 Chloride 105 Carbon Dioxide 23.0 Anion Gap 8 BUN 25 H Creatinine 1.51 H Estim Creat Clear Calc 53.91 Est GFR (MDRD) Af Amer 59 L Est GFR (MDRD) Non-Af 49 L BUN/Creatinine Ratio 16.6 Glucose 135 H Calcium 8.4 L - Other Studies Radiology: [] reviewed Other Studies: [] Route of nutrition/ use of supplements: [] Nutritional Intake: [] IV Site: [] Paetl Catheter: [] - Physical Exam General: Alert, Oriented x3, Cooperative, No apparent distress HEENT: Atraumatic, PERRLA, EOMI Neck: Supple, No Nodes Lungs: Clear to auscultation, Normal air movement Cardiovascular: Regular rate, Regular Rhythm Abdomen: Soft, Non Tender, Non-Distended, - - mild R flank pain Extremities: Edema Skin: No rashes IV Site: Peripheral, without redness Musculoskeletal: No Tenderness to Palpation of Joints or Extremities Neurological: Cranial nerves II-XII grossly intact - Assessment/Plan Antibiotics: [] Assessment/Plan: [] Active and Suspected Problems (Last Reviewed 07/31/18 @ 06:17 by Carlo Farley MD) Acute pyelonephritis (Acute) Ucx and bcx pending. On ceftriaxone. Ureteral stent in place. Will check renal u/s to look for stone, hydro, abscess. If condition worsens, would change ceftriaxone to cefepime to cover for nosocomial organisms given recent procedure. Will follow, thank you.
--- NOTE | 2018-07-31 10:48 | US_ITS ---
STUDY: RENAL ULTRASOUND - COMPLETE REASON FOR EXAM: Male, 68 years old. Flank pain TECHNIQUE: Ultrasound evaluation of the kidneys was performed with real-time and static buenrostro-scale imaging. COMPARISON: None. FINDINGS: There is a horseshoe kidney. The right moiety measures 12.0 x 6.0 x 6.0 cm. Right renal cortex measures 1.6 cm. There is a right renal cyst measuring 1.3 x 1.0 x 1.1 cm. There is a linear echogenic structure of the right renal pelvis consistent with stent. The left renal moiety measures 12.0 x 4.9 x 5.2 cm. Left renal cortex measures 1.8 cm. There is a 1.4 x 1.2 x 1.0 cm left renal cyst. There is a nonobstructing 4 mm calculus of the left kidney. Neither ureter was visualized. The prevoiding bladder volume is 182 mL. The post void bladder volume is 161 mL. Bladder wall thickness is 4 mm. There is no evidence of bladder mass or calculus. The right ureteral jet was not visualized. A left ureteral jet was seen. A stent appears to be within the bladder. US/Kidney and Bladder IMPRESSION: Horseshoe kidney. Bilateral renal cysts. 4 mm left renal nonobstructing calculus. Stent appears to be within the right renal pelvis and bladder. If clinically indicated, noncontrast CT of the abdomen and pelvis may be helpful for further evaluation. Electronically Signed: Carlos Manuel Davis MD at 16:18 EDT , Service support ,
--- NOTE | 2018-07-31 11:17 | CT_ITS ---
STUDY: CT ABDOMEN AND PELVIS WITH CONTRAST REASON FOR EXAM: Male, 68 years old. Right flank pain and sepsis RADIATION DOSAGE (If Supplied By Facility): CTDIvol = ( 14.38 ) mGy, DLP = ( 2014.16 ) mGycm TECHNIQUE: Transaxial images were obtained from the dome of the diaphragm to the symphysis pubis without oral contrast. 100 ml of Isovue 300 contrast was administered. Sagittal and coronal images were reconstructed. Individualized dose optimization techniques were used for this CT. COMPARISON: None. FINDINGS: There is minor atelectasis at the right lung base. The visualized portions of the heart are within normal limits. There is a small hiatal hernia. There are tiny air bubbles in the periesophageal fat of indeterminate etiology Liver is normal size. There is a tiny hypoattenuated density of uncertain etiology or significance. Bile ducts aren't dilated. Contracted thick-walled gallbladder without calcified stones of uncertain significance. Normal spleen. Normal pancreas. Normal bilateral adrenal glands. 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 The left kidney is not obstructed.. There is a small intrarenal cyst The right kidney is swollen but not obstructed however there is a ureterovesical stent present. There is stranding of the perinephric fat bilaterally as well as small amount of fluid in the anterior and posterior pararenal spaces Normal visualized stomach. Mild nonspecific ileus with diffuse fecal retention in the colon.. The appendix is visualized and appears normal. Atherosclerotic changes of the aorta with infrarenal aneurysm measuring 2.6 x 2.95 cm. Normal inferior vena cava. Normal retroperitoneum. Normal urinary bladder. Nonspecific enlargement of the prostate. Normal abdominal wall. Left hip prosthesis is present CT/Abdomen/Pelvis W IV Cont ONLY IMPRESSION: Horseshoe kidney deformity with diffusely enlarged right renal moiety with associated stranding and fluid in the perinephric fat which may be consistent with acute inflammatory changes. No evidence for hydronephrosis status post ureterovesical stent placement. Infrarenal aortic aneurysm measuring 2.6 x 2.95 cm Small hiatal hernia with incidental finding of air bubbles in the periesophageal fat possibly due to prior perforation however clinical correlation is recommended Electronically Signed: Hoang Mcfadden MD at 22:23 EDT , Service support ,
[2018-07-31] MEDS: Acetaminophen 325 MG Tablet 650 MG PO ×2 (11:18→19:55)
[2018-07-31] MEDS: Mag Hydrox/Al Hydrox/Simeth 30 ML UDC PO ×2 (11:18→19:25)
--- NOTE | 2018-07-31 12:06 | CASEMGMT ---
Face to Face with patient for initial transition planning/care coordination assessment. IMANI LOPEZ introduced self and role at [facility], pt voices understanding and consents to assessment at this time. Pt is sitting up in bed in no distress at this time. Pt is A/Ox4 at this time and answers all questions appropriately at this time. Care providers, pharmacy, and demographics verified. See attached link. Pt voices no further concerns/needs at this time. Advised pt to ask for CM if any further questions/concerns/needs arise, voices understanding. PLAN: [place] IMANI LOPEZ
[2018-07-31] MEDS: Pantoprazole Sodium 40 MG Tablet PO (14:16)
[2018-07-31 14:58] LABS: Pathologist Review Reviewed
[2018-08-01] VITALS (10 sets, daily range): BP systolic 93–137; BP diastolic 44–83; PULSE 59–78; RESP 16–18; TEMP 36.6–37.5; O2SAT 95–99
[2018-08-01] MEDS: Acetaminophen 325 MG Tablet 650 MG PO ×2 (01:50→19:49)
[2018-08-01 06:51] LABS: Absolute Lymphocyte Count 1.18 X10^3/ul (0.83-4.51); Absolute Neutrophil Count 6.3 X10^3/uL (2.0-7.7); Basophil# 0.02 X10^3/uL; Basophil% 0.2 % (0-1); Eosinophil# 0.01 X10^3/uL; Eosinophils% 0.1 % (0-5); Hematocrit 34.2 % (40-54); Hemoglobin 11.4 g/dl (13.0-16.5); Lymphocyte # 1.18 X10^3/ul (4.0); Lymphocyte % 12.9 % (19-41); Mean Corp Hgb Conc 33.3 g/gl (32-36); Mean Corpuscular Hgb 30.6 pg (27.0-32.0); Mean Corpuscular Volume 91.7 fL (80-94); Monocyte# 1.67 X10^3/uL; Monocyte% 18.2 % (0-10); Neutrophil # 6.26 X10^3/uL (2.7-7.7); Neutrophil % 68.4 % (47-70); Platelet Count 146 K/mm3 (150-450); RBC Distribution Width CV 14.4 % (11.6-14.6); Red Blood Count 3.73 M/mm3 (4.6-6.2); White Blood Count 9.2 K/mm3 (4.4-11.0)
[2018-08-01 06:52] LABS: Differential Indicated SCAN CRITERIA MET; POSITIVE COUNT NO; POSITIVE DIFFERENTIAL YES; POSITIVE MORPHOLOGY NO
[2018-08-01 07:08] LABS: ALB/GLOB Ratio 0.6 RATIO (0.9-2.4); AST(SGOT) 10 U/L (15-37); Alanine Aminotransfer ALT/SGPT 11 U/L (16-61); Albumin, Serum 2.3 g/dL (3.2-5.0); Alkaline Phosphatase 65 U/L (45-117); Anion Gap 8 (5-15); BUN 29 mg/dL (7-18); BUN/Creat Ratio 23.8 RATIO (10-20); Calcium,Total 8.4 mg/dL (8.5-10.1); Chloride 111 mmol/L (98-107); Creatinine, Serum 1.22 mg/dL (0.70-1.30); EST Glomerular Filtration Rate 63 mL/min (>60); Est Glom Filt Rate - Afr Amer 76 mL/min (>60); Estimated Creatinine Clearance 66.72 ml/min; Globulin 3.9 g/dL (2.2-4.2); Glucose 98 mg/dL (74-106); Potassium 4.6 mmol/L (3.5-5.1); Protein, Total 6.2 g/dL (6.4-8.2); Sodium Level 143 mmol/L (136-145)
[2018-08-01] MEDS: Enoxaparin 40 MG/0.4 ML Syringe SC (09:28)
[2018-08-01] MEDS: Finasteride 5 MG Tablet PO (09:28)
[2018-08-01] MEDS: Tamsulosin HCl 0.4 MG Capsule PO ×2 (09:28→20:58)
[2018-08-01] MEDS: Pantoprazole Sodium 40 MG Tablet PO (09:28)
--- NOTE | 2018-08-01 19:17 | PCM.PN.HOSP ---
Patient Problems: Active and Suspected Problems (Last Reviewed 07/31/18 @ 06:17 by Carlo Farley MD) Acute pyelonephritis (Acute) Subjective: f/u for severe sepsis Fever is down Vitals/I&O's: Vital Signs Temp Pulse Resp BP Pulse Ox 99.5 F H 70 18 121/62 H 96 08/01/18 14:40 08/01/18 15:06 08/01/18 14:40 08/01/18 14:40 08/01/18 14:40 Oxygen Delivery Method Room Air Weight: 81.4 kg Body Mass Index (BMI) 23.0 Intake and Output for Last 24 Hours 07/30/18 07/31/18 08/01/18 23:59 23:59 23:59 Intake Total 3398 / 3398 4090 / 4090 Output Total 300 / 300 450 / 450 Balance 3098 / 3098 3640 / 3640 General: Alert, Oriented x3, Cooperative, No apparent distress, Lethargic - ill looking HEENT: Atraumatic Oral: Moist Mucosa Neck: Supple Lungs: Clear to auscultation, Normal air movement, No rhonchi Cardiovascular: Regular rate, Regular Rhythm, Normal S1, Normal S2 Abdomen: Bowel Sounds Present, Soft, Non Tender, Non-Distended, No Hepato-splenomegaly, Passing Flatus, - - no renal angle tenderness Psych/Mental Status: Normal Affect Laboratory Results 08/01/18 05:45: WBC 9.2, RBC 3.73 L, Hgb 11.4 L, Hct 34.2 L, MCV 91.7, MCH 30.6, MCHC 33.3, RDW 14.4, RDW Differential 47.0 H, Plt Count 146 L, MPV 11.0, Immature Gran % (Auto) 0.200, Neut % (Auto) 68.4, Lymph % (Auto) 12.9 L, [place] % (Auto) 18.2 H, Eos % (Auto) 0.1, Baso % (Auto) 0.2, Absolute Neuts (auto) 6.3, Absolute Lymphs (auto) 1.18, Total Counted Not Reportable 08/01/18 05:45: Sodium 143, Potassium 4.6, Chloride 111 H, Carbon Dioxide 24.0, Anion Gap 8, BUN 29 H, Creatinine 1.22, Estim Creat Clear Calc 66.72, Est GFR (MDRD) Af Amer 76, Est GFR (MDRD) Non-Af 63, BUN/Creatinine Ratio 23.8 H, Glucose 98, Calcium 8.4 L, Total Bilirubin 0.40, AST 10 L, ALT 11 L, Alkaline Phosphatase 65, Total Protein 6.2 L, Albumin 2.3 L, Globulin 3.9, Albumin/Globulin Ratio 0.6 L Current Medications Acetaminophen (Tylenol) 650 mg PO Q4H PRN PRN PRN Reason: fever/pain Al Hydroxide/Mg Hydroxide (Mylanta Ii) 30 ml PO Q6H PRN PRN PRN Reason: HEARTBURN Last Admin: 07/31/18 19:25 Dose: 30 ml Bisacodyl (Dulcolax) 5 mg PO DAILY PRN PRN PRN Reason: Constipation Enoxaparin Sodium (Lovenox) 40 mg SC DAILY@1000 [facility] Last Admin: 08/01/18 09:28 Dose: 40 mg Finasteride (Proscar) 5 mg PO DAILY [facility] Last Admin: 08/01/18 09:28 Dose: 5 mg Ceftriaxone Sodium 2 gm/ (Dextrose) 50 mls @ 100 mls/hr IV Q24 [facility] Last Admin: 08/01/18 09:30 Dose: 100 mls/hr Potassium Chloride 10 meq/ (Sodium Chloride) 1,005 mls @ 150 mls/hr IV .Q6H42M [facility] Last Admin: 08/01/18 17:54 Dose: 150 mls/hr Magnesium Hydroxide (Milk Of Magnesia) 30 ml PO DAILY PRN PRN Reason: Constipation Ondansetron HCl (Zofran) 4 mg IV Q8H PRN PRN PRN Reason: Nausea Pantoprazole Sodium (Protonix) 40 mg PO DAILY [facility] Last Admin: 08/01/18 09:28 Dose: 40 mg Tamsulosin HCl (Flomax) 0.4 mg PO BID [facility] Last Admin: 08/01/18 09:28 Dose: 0.4 mg Medical Necessity - Tobacco Use Smoking Status: Current every day smoker Assessment/Plan All Active Problems (Last Reviewed 07/31/18 @ 06:17 by Carlo Farley MD) Acute pyelonephritis (Acute) History of carpal tunnel surgery of right wrist (Resolved) History of left hip replacement (Resolved) Encounter for fitting of ureteral stent (Acute) Ureteral stenosis, right (Acute) Ureteral stenosis, left (Acute) Bilateral hydronephrosis (Acute) Hydroureter on left (Acute) Hydroureter on right (Acute) Acute kidney injury (Acute) Chest tightness or pressure (Resolved) Complicated UTI following recent instrumentation and ureteral stenting acute pyelonephritis On IV antibiotics and appears to be responding. ID on board and following SAWYER Secondary to severe sepsis and dehydration. Improving with IVFs and IV abx Severe Sepsis. Secondary to #1 above. Appears to be resolving BPH Flomax and finasteride continued Tobacco abuse DVT prophylaxis Because of history of cancer, Lovenox ordered. Code Visit Inpatient E&M: 18909 Subs Hosp L3
--- NOTE | 2018-08-01 19:21 | PN_ITS ---
Patient Problems: Active and Suspected Problems (Last Reviewed 07/31/18 @ 06:17 by Carlo Farley MD) Acute pyelonephritis (Acute) Subjective: f/u for severe sepsis Fever is down Vitals/I&O's: Vital Signs Temp Pulse Resp BP Pulse Ox 99.5 F H 70 18 121/62 H 96 08/01/18 14:40 08/01/18 15:06 08/01/18 14:40 08/01/18 14:40 08/01/18 14:40 Oxygen Delivery Method Room Air Weight: 81.4 kg Body Mass Index (BMI) 23.0 Intake and Output for Last 24 Hours 07/30/18 07/31/18 08/01/18 23:59 23:59 23:59 Intake Total 3398 / 3398 4090 / 4090 Output Total 300 / 300 450 / 450 Balance 3098 / 3098 3640 / 3640 General: Alert, Oriented x3, Cooperative, No apparent distress, Lethargic - ill looking HEENT: Atraumatic Oral: Moist Mucosa Neck: Supple Lungs: Clear to auscultation, Normal air movement, No rhonchi Cardiovascular: Regular rate, Regular Rhythm, Normal S1, Normal S2 Abdomen: Bowel Sounds Present, Soft, Non Tender, Non-Distended, No Hepato- splenomegaly, Passing Flatus, - - no renal angle tenderness Psych/Mental Status: Normal Affect Laboratory Results 08/01/18 05:45: WBC 9.2, RBC 3.73 L, Hgb 11.4 L, Hct 34.2 L, MCV 91.7, MCH 30.6 , MCHC 33.3, RDW 14.4, RDW Differential 47.0 H, Plt Count 146 L, MPV 11.0, Immature Gran % (Auto) 0.200, Neut % (Auto) 68.4, Lymph % (Auto) 12.9 L, [place] % (Auto) 18.2 H, Eos % (Auto) 0.1, Baso % (Auto) 0.2, Absolute Neuts (auto) 6.3, Absolute Lymphs (auto) 1.18, Total Counted Not Reportable 08/01/18 05:45: Sodium 143, Potassium 4.6, Chloride 111 H, Carbon Dioxide 24.0, Anion Gap 8, BUN 29 H, Creatinine 1.22, Estim Creat Clear Calc 66.72, Est GFR ( MDRD) Af Amer 76, Est GFR (MDRD) Non-Af 63, BUN/Creatinine Ratio 23.8 H, Glucose 98, Calcium 8.4 L, Total Bilirubin 0.40, AST 10 L, ALT 11 L, Alkaline Phosphatase 65, Total Protein 6.2 L, Albumin 2.3 L, Globulin 3.9, Albumin/ Globulin Ratio 0.6 L Current Medications Acetaminophen (Tylenol) 650 mg PO Q4H PRN PRN PRN Reason: fever/pain Al Hydroxide/Mg Hydroxide (Mylanta Ii) 30 ml PO Q6H PRN PRN PRN Reason: HEARTBURN Last Admin: 07/31/18 19:25 Dose: 30 ml Bisacodyl (Dulcolax) 5 mg PO DAILY PRN PRN PRN Reason: Constipation Enoxaparin Sodium (Lovenox) 40 mg SC DAILY@1000 [facility] Last Admin: 08/01/18 09:28 Dose: 40 mg Finasteride (Proscar) 5 mg PO DAILY [facility] Last Admin: 08/01/18 09:28 Dose: 5 mg Ceftriaxone Sodium 2 gm/ (Dextrose) 50 mls @ 100 mls/hr IV Q24 [facility] Last Admin: 08/01/18 09:30 Dose: 100 mls/hr Potassium Chloride 10 meq/ (Sodium Chloride) 1,005 mls @ 150 mls/hr IV .Q6H42M [facility] Last Admin: 08/01/18 17:54 Dose: 150 mls/hr Magnesium Hydroxide (Milk Of Magnesia) 30 ml PO DAILY PRN PRN Reason: Constipation Ondansetron HCl (Zofran) 4 mg IV Q8H PRN PRN PRN Reason: Nausea Pantoprazole Sodium (Protonix) 40 mg PO DAILY [facility] Last Admin: 08/01/18 09:28 Dose: 40 mg Tamsulosin HCl (Flomax) 0.4 mg PO BID [facility] Last Admin: 08/01/18 09:28 Dose: 0.4 mg Medical Necessity - Tobacco Use Smoking Status: Current every day smoker Assessment/Plan All Active Problems (Last Reviewed 07/31/18 @ 06:17 by Carlo Farley MD) Acute pyelonephritis (Acute) History of carpal tunnel surgery of right wrist (Resolved) History of left hip replacement (Resolved) Encounter for fitting of ureteral stent (Acute) Ureteral stenosis, right (Acute) Ureteral stenosis, left (Acute) Bilateral hydronephrosis (Acute) Hydroureter on left (Acute) Hydroureter on right (Acute) Acute kidney injury (Acute) Chest tightness or pressure (Resolved) Complicated UTI following recent instrumentation and ureteral stenting acute pyelonephritis On IV antibiotics and appears to be responding. ID on board and following SAWYER Secondary to severe sepsis and dehydration. Improving with IVFs and IV abx Severe Sepsis. Secondary to #1 above. Appears to be resolving BPH Flomax and finasteride continued Tobacco abuse DVT prophylaxis Because of history of cancer, Lovenox ordered. Code Visit Inpatient E&M: 60480 Subs Hosp L3
[2018-08-02 02:40] VITALS: BP 103/57; PULSE 64; RESP 16; TEMP 36.7; O2SAT 97
[2018-08-02 03:07] VITALS: PULSE 59
[2018-08-02 06:59] VITALS: PULSE 65
[2018-08-02 08:40] VITALS: BP 142/76; PULSE 69; RESP 18; TEMP 37; O2SAT 96
[2018-08-02] MEDS: Tamsulosin HCl 0.4 MG Capsule PO (10:38)
[2018-08-02] MEDS: Finasteride 5 MG Tablet PO (10:38)
[2018-08-02] MEDS: Pantoprazole Sodium 40 MG Tablet PO (10:38)
[2018-08-02] MEDS: Enoxaparin 40 MG/0.4 ML Syringe SC (10:39)
[2018-08-02 10:59] VITALS: PULSE 63
--- NOTE | 2018-08-02 11:59 | PCM.DC ---
- Discharge Diagnoses Current Active Problems: Current Active and Chronic Problems (Last Reviewed 07/31/18 @ 06:17 by Carlo Farley MD) Acute complicated UTI Acute pyelonephritis (Acute) You will use the following diet at home:: No restrictions, Regular Your food should be the consistency of: Regular Your liquids should be the consistency of: Regular/Thin Discharge Activity: Return to Normal Activity, No Restrictions, May Drive Call your doctor if you observe: Fever of 101 or Higher Allergies/Adverse Reactions: Allergies bupropion [From Wellbutrin] Allergy (Verified 07/30/18 19:40) Unknown cephalexin [From Keflex] Allergy (Verified 07/30/18 19:40) Unknown Penicillins Allergy (Verified 07/30/18 19:40) Unknown Medications to take at Discharge Finasteride [Proscar] 5 mg PO DAILY 04/14/18 Tamsulosin HCl [Flomax] 0.4 mg PO BID 04/14/18 Ciprofloxacin [Cipro] 500 mg PO BID 14 Days #28 tab 08/02/18 L. Rhamnosus GG/Inulin [Culturelle Probiotics Capsule] 1 ea PO BID 30 Days #60 cap 08/02/18 The following prescriptions were given: Ciprofloxacin [Cipro] 500 mg PO BID 14 Days #28 tab L. Rhamnosus GG/Inulin [Culturelle Probiotics Capsule] 1 ea PO BID 30 Days #60 cap Primary Care Physician: Donell Moralez MD [Primary Care Provider] - Please follow up with your Primary Care Physician in: in 2 weeks Test Results: Test results from this visit will be discussed in further detail at your follow-up appointment, if applicable. Proposed Discharge Date: 08/02/18
--- NOTE | 2018-08-02 12:02 | DCINST_ITS ---
- Discharge Diagnoses Current Active Problems: Current Active and Chronic Problems (Last Reviewed 07/31/18 @ 06:17 by Carlo Farley MD) Acute complicated UTI Acute pyelonephritis (Acute) You will use the following diet at home:: No restrictions, Regular Your food should be the consistency of: Regular Your liquids should be the consistency of: Regular/Thin Discharge Activity: Return to Normal Activity, No Restrictions, May Drive Call your doctor if you observe: Fever of 101 or Higher Allergies/Adverse Reactions: Allergies bupropion [From Wellbutrin] Allergy (Verified 07/30/18 19:40) Unknown cephalexin [From Keflex] Allergy (Verified 07/30/18 19:40) Unknown Penicillins Allergy (Verified 07/30/18 19:40) Unknown Medications to take at Discharge Finasteride [Proscar] 5 mg PO DAILY 04/14/18 Tamsulosin HCl [Flomax] 0.4 mg PO BID 04/14/18 Ciprofloxacin [Cipro] 500 mg PO BID 14 Days #28 tab 08/02/18 L. Rhamnosus GG/Inulin [Culturelle Probiotics Capsule] 1 ea PO BID 30 Days #60 cap 08/02/18 The following prescriptions were given: Ciprofloxacin [Cipro] 500 mg PO BID 14 Days #28 tab L. Rhamnosus GG/Inulin [Culturelle Probiotics Capsule] 1 ea PO BID 30 Days #60 cap Primary Care Physician: Donell Moralez MD [Primary Care Provider] - Please follow up with your Primary Care Physician in: in 2 weeks Test Results: Test results from this visit will be discussed in further detail at your follow- up appointment, if applicable. Proposed Discharge Date: 08/02/18
--- NOTE | 2018-08-02 12:02 | PCM.DC.SUM ---
Discharge Date and Diagnosis - Problem List Patient Problems: Active and Suspected Problems (Last Reviewed 07/31/18 @ 06:17 by Carlo Farley MD) Acute pyelonephritis (Acute) Complicated UTI (urinary tract infection) (Acute) SAWYER (acute kidney injury) (Acute) Date of Admission: 07/31/18 Date of Discharge: 08/02/18 - Primary Discharge Diagnosis Active and Suspected Problems (Last Reviewed 07/31/18 @ 06:17 by Carlo Farley MD) Acute pyelonephritis (Acute) Acute complicated UTI SAWYER - Secondary Discharge Diagnosis Chronic Problems (Last Reviewed 07/31/18 @ 06:17 by Carlo Farley MD) Chest pain on exertion (Chronic) History of bladder cancer (Chronic) Hematuria (Chronic) Depression (Chronic) Pulmonary nodule (Chronic) Hypertension (Chronic) GERD (gastroesophageal reflux disease) (Chronic) Peripheral vascular disease (Chronic) has had a stent left groin Tobacco dependence (Chronic) Enlarged prostate (Chronic) Hospital Course and Treatment Operations: None, - - Cystoscopy with bilateral ureteral stent placement Procedures: None Summary of Care Provided: The patient is a 68 year old M who recently underwent lower and urinary tract instrumentation with ureteral stenting on the right ureter. Presented to the hospital several days later with fever, chills, malaise, anorexia and myalgias and was found to be severely septic with SAWYER as well. Urinalysis was abnormal and cultures eventually grew Enterococcus faecalis. Patient was treated with IV ceftriaxone and infectious disease consulted as well. Patient has improved with resolution of fever and leukocytosis. Today he feels better and has been afebrile for greater than 48 hours and he is stable for discharge home. He will follow up with his urologist as as scheduled and with his PCP in 2 weeks.[] Discharge Activity: Return to Normal Activity, No Restrictions, May Drive Call your doctor if you observe: Fever of 101 or Higher Home Medications: Medications to take at Discharge Finasteride [Proscar] 5 mg PO DAILY 04/14/18 Tamsulosin HCl [Flomax] 0.4 mg PO BID 04/14/18 Ciprofloxacin [Cipro] 500 mg PO BID 14 Days #28 tab 08/02/18 L. Rhamnosus GG/Inulin [Culturelle Probiotics Capsule] 1 ea PO BID 30 Days #60 cap 08/02/18 Following Prescrptions Were Given to Patient: Ciprofloxacin [Cipro] 500 mg PO BID 14 Days #28 tab L. Rhamnosus GG/Inulin [Culturelle Probiotics Capsule] 1 ea PO BID 30 Days #60 cap Primary Care Physician: Donell Moralez MD [Primary Care Provider] - Please follow up with your Primary Care Physician in: in 2 weeks Please Follow Up With: Donell Moralez MD Disposition: Home Minutes spent on discharge:: 35 Patient Condition:: Good Medical Necessity - Tobacco Use Smoking Status: Current every day smoker Meaningful Use Info Meaningful Use Diagnoses (Choose all that apply): None applicable Code Visit Inpatient E&M: 75295 Disch Hosp
[2018-08-02 13:51] VITALS: BP 156/84; PULSE 66; RESP 18; TEMP 36.8; O2SAT 96
--- NOTE | 2018-08-05 13:47 | CASEMGMT ---
Addendum entered by Yanira Mann 08/05/18 14:05: Pt returned call to this RN JOHN at this time. Per pt, he has been doing 'ok' since discharge. Pt states no questions regarding discharge instructions or medications at this time. Pt states has f/u with PCP set up and plans to keep appt. Pt states only suggestion for [facility] is 'better food.' Pt states that the 'staff was really great.' Pt states no further questions/concerns/needs at this time. Chucky DIALLO CM Original Note: Addendum entered by Yanira Mann 08/05/18 14:02: Pt received a message from pt and attempted to return call to pt at this time without success. Chucky DIALLO CM Original Note: IMANI OLPEZ Discharge F/U Phone Call LACE: 12 Strata: 4 Discharge date: 08/02/18 Call date: 08/05/18 Call time: 1347 Attempted to reach pt at this time without success, message left for pt to call this RN JOHN back if able. Chucky DIALLO CM Admission dx: Pyelonephritis
== END 2018-08-02 14:15 | disposition home or self-care (01) | DRG 862 ==
LOC: ED 20:22 → PCU 07-31 00:47
PROVIDERS: Admitting Provider Hospitalist; Emergency Provider Emergency Medicine; Family Provider Family Medicine; PCP Family Medicine; Visit Provider Internal Medicine
DX: T81.4XXA Infection following a procedure, initial encounter (principal); A41.9 Sepsis, unspecified organism; R65.20 Severe sepsis without septic shock; N10 Acute pyelonephritis; N17.9 Acute kidney failure, unspecified; N40.0 Benign prostatic hyperplasia without lower urinary tract symptoms; K21.9 Gastro-esophageal reflux disease without esophagitis; I73.9 Peripheral vascular disease, unspecified; I10 Essential (primary) hypertension; F17.210 Nicotine dependence, cigarettes, uncomplicated; Z96.0 Presence of urogenital implants; Z85.51 Personal history of malignant neoplasm of bladder; B95.2 Enterococcus as the cause of diseases classified elsewhere
CPT/HCPCS: 36415; 70450; 70551; 71046; 71275; 74177; 76770; 80048; 80053; 81001; 83605; 85025; 85379; 87040; 87077; 87086; 87088; 87186; 93005; 97161; 97165; 99284; 99406; J7030; J7040; Q9967; A4216; J0696

== ENCOUNTER → 2018-10-26 17:19 | Outpatient (CLI) | payer MEDICARE, MEDICAID, SELFPAY ==
--- NOTE | 2018-10-26 17:21 | CT_ITS ---
STUDY: CT ABDOMEN AND PELVIS WITH CONTRAST REASON FOR EXAM: Male, 68 years old. Bladder cancer. Initial diagnosis. RADIATION DOSAGE (If Supplied By Facility): CTDIvol = ( 14.87 ) mGy, DLP = ( 2100.14 ) mGycm TECHNIQUE: Transaxial images were obtained from the dome of the diaphragm to the symphysis pubis without oral contrast. 100CC ml of Isovue 300 contrast was administered. Sagittal and coronal images were reconstructed. Individualized dose optimization techniques were used for this CT. COMPARISON: CT of the abdomen and pelvis dated October 28, 2017 and July 31, [address] of the chest dated July 30, 2018. FINDINGS: Within the right lower lobe there is a subpleural 10 mm nodule that has increased in size since October 2017 previously measuring 5.2 mm. There are emphysematous changes. There is bibasilar atelectasis and/or scarring. There is a granuloma within the right middle lobe. The visualized portions of the heart are within normal limits. There is a stable too small to characterize low-attenuation focus within the right hepatic lobe. Normal gallbladder and extrahepatic biliary system. There are splenic granulomas. Normal pancreas. Normal bilateral adrenal glands. There is a horseshoe kidney present. There is perinephric stranding that is less pronounced than the prior examination. There are bilateral renal cysts present. There is a stable hiatal hernia. Normal small intestine. There are scattered diverticula throughout the sigmoid colon. The appendix is visualized and appears normal. There is diffuse atherosclerotic calcification of the abdominal aorta. The aorta is ectatic with scratch that. Normal inferior vena cava. There are stable prominent para-aortic lymph nodes. There is a mildly enlarged prostate gland protruding into the posterior urinary bladder. Normal abdominal wall. There are diffuse degenerative changes of the visualized lumbar spine. There is a left hip arthroplasty in place. The bones are stable CT/Abdomen/Pelvis W IV Cont ONLY IMPRESSION: Interval enlargement of 10 mm subpleural nodule within the right lower lobe since October 2017, this may reflect focal atelectasis and/or scarring however a neoplastic process cannot be entirely excluded, consider PET/CT or short interval follow-up CT in 3 months. Enlarged prostate gland. Atherosclerosis. Horseshoe kidney. Colonic diverticulosis. Hiatal hernia. Electronically Signed: Skylar Shultz MD at 8:58 EST Tel , Service support ,
[2018-10-26 17:34] LABS: CREATININE FINGERSTICK 1.6 mg/dL (0.70-1.30)
--- OUTSIDE RECORDS SUMMARY | 2018-12-13 02:29 | XMS RPT_ITS ---
:1950 Author Organization OHIP Support Name Relationship Address Phone ROGER MAIRA Unavailable [address] + [address] [place] [address] R Unavailable Unavailable Unavailable HUEGLE, MAIRA Unavailable [address] + [address] [place] [address] R Unavailable Unavailable Unavailable HUEGLE, MAIRA Unavailable [address] + [address] [place] [address] R Unavailable Unavailable Unavailable HUEGLE, MAIRA Unavailable [address] + [address] [place] [address] R Unavailable Unavailable Unavailable HUEGLE, MAIRA Unavailable [address] + [address] [place] [address] R Unavailable Unavailable Unavailable HUEGLE, MAIRA Unavailable [address] + [address] [place] [address] R Unavailable Unavailable Unavailable HUEGLE, MAIRA Unavailable Unavailable + R Unavailable Unavailable Unavailable R Unavailable Unavailable Unavailable R Unavailable Unavailable Unavailable Huegle, Haven Unavailable Unavailable + HUEGLE, MAIRA Unavailable [address] + [address] [place] [address] R Unavailable Unavailable Unavailable R Unavailable Unavailable Unavailable R Unavailable Unavailable Unavailable R Unavailable Unavailable Unavailable R Unavailable Unavailable Unavailable R Unavailable Unavailable Unavailable R Unavailable Unavailable Unavailable R Unavailable Unavailable Unavailable R Unavailable Unavailable Unavailable R Unavailable Unavailable Unavailable Huegle, Haven Unavailable Unavailable + R Unavailable Unavailable Unavailable Care Team Providers Name Role Phone Jackson Fields Attending Unavailable Jackson Fields Referring Unavailable Donell Moralez Primary Care Unavailable Donell Moralez Primary Care Unavailable Jackson Fields Consulting Unavailable Freddy Swapna Admitting Unavailable Swapna Hayes Attending Unavailable Jannie Hayese Admitting Unavailable Swapna Hayes Attending Unavailable Donell Moralez Primary Care Unavailable DonnieJackson Consulting Unavailable Sementi, Swapna Consulting Unavailable Sementi, Swapna Admitting Unavailable Sementi, Swapna Attending Unavailable [facility] [place] Primary Care Unavailable DonnieJackson Consulting Unavailable Sementi, Swapna Consulting Unavailable Sementi, Swapna Admitting Unavailable Sementi, Swapna Attending Unavailable [facility] [place] Primary Care Unavailable DonnieJackson Consulting Unavailable Sementi, Swapna Consulting Unavailable [facility], Donell Attending Unavailable [facility] [place] Primary Care Unavailable Ganesh Walls Attending Unavailable SemenSwapna evans Referring Unavailable Timmy Lira D.O. Attending Unavailable Kirt, Donell Referring Unavailable Timmy Lira D.O. Attending Unavailable Timmy Lira D.O. Referring Unavailable [facility] [place] Primary Care Unavailable Timmy Lira D.O. Attending Unavailable Timmy Lira D.O. Referring Unavailable [facility] Care Unavailable Jackson Fields Attending Unavailable DonnieJackson Referring Unavailable [facility] Care Unavailable DonnieJackson Admitting Unavailable DonnieJackson Attending Unavailable DonnieJackson Referring Unavailable [facility] Care Unavailable DonnieJackson Attending Unavailable DonnieJackson Referring Unavailable [facility] Care Unavailable Ganesh Walls Attending Unavailable DonnieJackson Referring Unavailable [facility] Care Unavailable Agyepong, Carlo Admitting Unavailable Cynthia, Alhaji Consulting Unavailable Francisco Javiere, Ifijen Attending Unavailable Mahi Gunter Consulting Unavailable Agyepong, Carlo Admitting Unavailable Agyepong, Carlo Attending Unavailable [facility] Care Unavailable Cynthia, Alhaji Consulting Unavailable Agyepong, Carlo Consulting Unavailable Agyepong, Carlo Admitting Unavailable [facility] [place] Primary Care Unavailable Cynthia, Alhaji Consulting Unavailable SementiSwapna Attending Unavailable Mahi Gunter Consulting Unavailable Oleghe, Ifijen Consulting Unavailable Agyepong, Carlo Admitting Unavailable [facility], [facility] Care Unavailable Cynthia, Alhaji Consulting Unavailable Sementi, Swapna Attending Unavailable Lyric, Mahi Consulting Unavailable Francisco Javiere, Ifijen Consulting Unavailable Mariana Valdez Attending Unavailable [facility], Donell Referring [facility] Unavailable DonnieJacksonAlok Attending Unavailable Jackson Fields Referring Unavailable KirtDonell brown Primary Care Unavailable Shanell Munoz Attending Unavailable PROVIDER, UNKNOWN Referring Unavailable KirtDonell brown Primary Care Unavailable Will Hackett Attending Unavailable PROVIDER, UNKNOWN Referring Unavailable KirtDonell brown [facility] Care Unavailable PROBLEMS PROBLEMS DATE TYPE CONDITION / CODE ATTENDING STATUS SOURCE 08/04/2018 Unknown R91.1 - Solitary Valdez, Active [facility] pulmonary nodule / [facility] R91.1(ICD-10) Hospital Repository 08/04/2018 Unknown R06.02 - Shortness Valdez, Active [facility] of breath / [facility] R06.02(ICD-10) Hospital Repository 07/16/2018 Unknown D30.3 - Benign DonnieJackson Active [facility] neoplasm of bladder [facility] / D30.3(ICD-10) Hospital Repository 07/08/2018 Admitting Unspecified Will Hackett [facility] Diagnosis abdominal pain / System R10.9(ICD-10) Repository 07/08/2018 Admitting Essential (primary) Will Hackett [facility] Diagnosis hypertension / System I10(ICD-10) Repository 07/08/2018 Admitting Allergy status to Will Hackett [facility] Diagnosis penicillin / System Z88.0(ICD-10) Repository 07/08/2018 Admitting Allergy status to Will Hackett [facility] Diagnosis oth drug/meds/biol System subst status / Repository Z88.8(ICD-10) 07/08/2018 Admitting Neoplasm related Will Hackett [facility] Diagnosis pain (acute) System (chronic) / Repository G89.3(ICD-10) 07/08/2018 Admitting Malignant (primary) Will Hackett [facility] Diagnosis neoplasm, System unspecified / Repository C80.1(ICD-10) 07/08/2018 Admitting Personal history of Will Hackett [facility] Diagnosis urinary calculi / System Z87.442(ICD-10) Repository 07/08/2018 Admitting Allergy status to Will Hackett [facility] Diagnosis other antibiotic System agents status / Repository Z88.1(ICD-10) 07/08/2018 Admitting Nicotine dependence, Will Hackett [facility] Diagnosis unspecified, System uncomplicated / Repository F17.200(ICD-10) 07/29/2018 Unknown Z01.810 - Encounter Moodispaw, Active [facility] for preprocedural [facility] cardiovascular Hospital examination / Repository Z01.810(ICD-10) 06/11/2018 Unknown R06.09 - Other forms Timmy Lira, Active [facility] of dyspnea / [facility] R06.09(ICD-10) Hospital Repository 06/11/2018 Unknown F17.200 - Nicotine Timmy Lira, Active [facility] dependence, [facility] unspecified, Hospital uncomplicated / Repository F17.200(ICD-10) 04/17/2018 Unknown N13.2 - Sementi, Active [facility] Hydronephrosis with [facility] renal and ureteral Hospital calculous Repository obstruction / N13.2(ICD-10) 05/18/2018 Unknown R00.1 - Bradycardia, Moodispaw, Active [facility] unspecified / [facility] R00.1(ICD-10) Hospital Repository 05/18/2018 Unknown I10 - Essential Moodispaw, Active [facility] (primary) [facility] hypertension / Hospital I10(ICD-10) Repository 2018 Admitting Disorder of kidney Jeromin, Active [facility] Diagnosis and ureter, [facility] System unspecified / Repository N28.9(ICD-10) 2018 Admitting Unspecified Jeromin, Active [facility] Diagnosis hydronephrosis / [facility] System N13.30(ICD-10) Repository 2018 Admitting Solitary pulmonary Jeromin, Active [facility] Diagnosis nodule / [facility] System R91.1(ICD-10) Repository 2018 Admitting Lobulated, fused and Jeromin, 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 / [facility] System Q63.1(ICD-10) Repository 2018 Admitting Benign prostatic Jeromin, Active [facility] Diagnosis hyperplasia without [facility] lower urinry tract Repository symp / N40.0(ICD-10) 2018 Admitting Diaphragmatic hernia Jeromin, Active [facility] Diagnosis without obstruction [facility] System or gangrene / Repository K44.9(ICD-10) 2018 Admitting Presence of other Jeromin, Active [facility] Diagnosis orthopedic joint [facility] System implants / Repository Z96.698(ICD-10) 2018 Admitting Personal history of Jeromin, Active [facility] Diagnosis malignant neoplasm, [facility] System unspecified / Repository Z85.9(ICD-10) PROCEDURES PROCEDURES No Procedure Records FoundRESULTS RESULTS CREATININE FINGERSTICK Collected: 10/26/2018 Status: F Source: [place] 5:30 PM [facility] REPOSITORY TYPE CODE TESTS RESULT OUT OF REFERENCE UNITS RANGE LAB L9100.0210 0.70-1.30 mg/dL High CREATININE WB 1.6 LAB L9100.0220 >60 mL/min Low EGFR WB 46.0000 Performed By: #### L9100.0200 #### [facility] Laboratory Point of Care [address] [place] [address] ABDOMEN/PELVIS W IV CONT Observed: 10/26/2018 Status: F Source: ROY[place] ONLY 5:22 PM [facility] REPOSITORY [facility] Imaging Services [address] [place] [address] Abdomen/Pelvis W IV Cont ONLY MR#: [id number] Acct: [id number] Name: DEION CHAU Rep #: [id number] : 1950 M 68 From: Skylar Shultz MD PCP: Donell Moralez MD Status: REG CLI Study: Abdomen/Pelvis W IV Cont ONLY Date of Exam: 10/26/18 Exam# [id number] Ordering Dr: Jackson Fields MD STUDY: CT ABDOMEN AND PELVIS WITH CONTRAST REASON FOR EXAM: Male, 68 years old. Bladder cancer. Initial diagnosis. RADIATION DOSAGE (If Supplied By Facility): CTDIvol = ( 14.87 ) mGy, DLP = ( 2100.14 ) mGycm TECHNIQUE: Transaxial images were obtained from the dome of the diaphragm to the symphysis pubis without oral contrast. 100CC ml of Isovue 300 contrast was administered. Sagittal and coronal images were reconstructed. Individualized dose optimization techniques were used for this CT. COMPARISON: CT of the abdomen and pelvis dated October 28, 2017 and July 31, [address] of the chest dated July 30, 2018. FINDINGS: Within the right lower lobe there is a subpleural 10 mm nodule that has increased in size since October 2017 previously measuring 5.2 mm. There are emphysematous changes. There is bibasilar atelectasis and/or scarring. There is a granuloma within the right middle lobe. The visualized portions of the heart are within normal limits. There is a stable too small to characterize low-attenuation focus within the right hepatic lobe. Normal gallbladder and extrahepatic biliary system. There are splenic granulomas. Normal pancreas. Normal bilateral adrenal glands. There is a horseshoe kidney present. There is perinephric stranding that is less pronounced than the prior examination. There are bilateral renal cysts present. There is a stable hiatal hernia. Normal small intestine. There are scattered diverticula throughout the sigmoid colon. The appendix is visualized and appears normal. There is diffuse atherosclerotic calcification of the abdominal aorta. The aorta is ectatic with scratch that. Normal inferior vena cava. There are stable prominent para-aortic lymph nodes. There is a mildly enlarged prostate gland protruding into the posterior urinary bladder. Normal abdominal wall. There are diffuse degenerative changes of the visualized lumbar spine. There is a left hip arthroplasty in place. The bones are stable CT/Abdomen/Pelvis W IV Cont ONLY IMPRESSION: Interval enlargement of 10 mm subpleural nodule within the right lower lobe since October 2017, this may reflect focal atelectasis and/or scarring however a neoplastic process cannot be entirely excluded, consider PET/CT or short interval follow-up CT in 3 months. Enlarged prostate gland. Atherosclerosis. Horseshoe kidney. Colonic diverticulosis. Hiatal hernia. Electronically Signed: Skylar Shultz MD at 8:58 EST Tel , Service support , CC: Jackson Fields MD; Donell Moralez MD Learning Coordinator: Signed PULMONARY VISIT REPORT Observed: 08/04/2018 Status: F Source: [place] 9:19 AM [facility] REPOSITORY Pulmonary Medicine of [address] [place] [address] OFFICE VISIT Date of Service: 08/04/18 MR#: [id number] Acct: [id number] Name: DEION CHAU Rep #: [id number] : 1950 Provider: Mariana Valdez Age/Sex: 68/M Location: [facility] Status: Signed Assessment AND Plan 1. Pulmonary nodule R91.[address] results, also discussed the possibility of obtaining a biopsy to determine if in fact this is malignancy. The patient states that he is not interested in a biopsy. He also states that if this is cancer he will not seek treatment. He states that I am okay with dying. Discussed the possibility of repeating the CT in 3 months to evaluate if this is scar tissue versus malignancy. The patient is agreeable with repeating the CT. We will follow-up with Dr. Lira after completing a CT to discuss the results and continue to develop a plan. The patient has been encouraged to contact the office with any new or worsening symptoms, as well as any questions that may arise. He is agreeable with this plan. Orders Orders: 2. Tobacco dependence F17.200 Plan Encourage smoke cessation. He is pre-contemplative at this point. He has declined pulmonary function testing, despite educating the patient on how the PFTs can be used to identify medications that may be helpful. Per his own words the patient states I am a difficult patient. Follow-up with Dr. Lira in 2 months. Plan Detail Other Orders Orders: Follow Up 2 Months (DMB) HPI 6 wk FU: Chief Complaint: Test results HPI Comments Details: This patient presents the office today to follow-up after a CT of the chest was completed. He is amatory and currently in room air. He was recently hospitalized for acute kidney injury. He is currently under oncology care for chemotherapy, since March of this year. Currently he experiences shortness of breath with activity only. He denies any shortness of breath with conversation or rest. He has an occasional nonproductive cough. He denies any sputum production or hemoptysis. He denies any wheezing, chest tightness, chest pain or palpitations. He denies any bleeding signs such as hematemesis, hematochezia or melena stools. He denies any unintentional weight loss. He is currently on ciprofloxacin for his UTI and has several days remaining. He continues to smoke between 1-3 packs of cigarettes daily. He was previously recommended to obtain a pulmonary function test given his significant tobacco history. The patient states that he is not interested in any further testing, per his own words he is only here for the CT results. CT of the chest without contrast completed on June 18, 2018 showed several scattered calcified pulmonary nodules consistent with old granulomatosis disease. It also noted that in the deep sulcus of the right lower lobe posterior basilar segment, there is a pleural-based soft tissue density opacity measuring approximately 1.5 cm craniocaudal, 1.2 cm transverse and 2.1 cm anterior posterior. At its margin, minimal 1.2 cm focus of honeycombing along the pleural reflection. Immediately medial to this, a small region of groundglass opacities and interlobar septal thickening. Overall, this pattern favors scarring rather than a neoplastic process. Intake Vital Signs08/04/18 Height 6 ft 2 in 08/04/18 Weight: 187 lb Intake Visit Reasons: 6 wk FU Utility Assembler Required: No Accompanied by: Self Allergies bupropion [From Wellbutrin] Allergy (Verified 08/04/18 08:04) Unknown cephalexin [From Keflex] Allergy (Verified 08/04/18 08:04) Unknown Penicillins Allergy (Verified 08/04/18 08:04) Unknown Medications Finasteride [Proscar] 5 mg PO DAILY 04/14/18 [History Confirmed 08/04/18] Tamsulosin HCl [Flomax] 0.4 mg PO BID 04/14/18 [History Confirmed 08/04/18] Ciprofloxacin [Cipro] 500 mg PO BID 14 Days #28 tab 08/02/18 [Rx Confirmed 08/04/18] L. Rhamnosus GG/Inulin [Culturelle Probiotics Capsule] 1 ea PO BID 30 Days #60 cap 08/02/18 [Rx Confirmed 08/04/18] PFSH Medical History Chest pain on exertion (Chronic) History of bladder cancer (Chronic) Encounter for fitting of ureteral stent (Acute) Ureteral stenosis, right (Acute) Ureteral stenosis, left (Acute) Hematuria (Chronic) Depression (Chronic) Bilateral hydronephrosis (Acute) Hydroureter on left (Acute) Hydroureter on right (Acute) Acute kidney injury (Acute) Pulmonary nodule (Chronic) Hypertension (Chronic) GERD (gastroesophageal reflux disease) (Chronic) Peripheral vascular disease (Chronic) Tobacco dependence (Chronic) Enlarged prostate (Chronic) Surgical History History of carpal tunnel surgery of right wrist (Resolved) History of left hip replacement (Resolved) Family History Father Heart disease Mother Diabetes Social History Smoking Status: Current every day smoker second hand exposure: Yes alcohol intake: current alcohol intake frequency: holidays/special occasions only substance use type: does not use Review of Systems Const CONSTITUTIONAL: Positive night sweats and fatigue; negative anorexia, body ache, chills, daytime sleepiness, fever(s), oral thrush, stops breathing during sleep, weight loss, sleeping in chair, weight loss, weight gain, frequent colds, seasonal allergies, other, headache(s) or orthopnea EETM Ear Nose Throat Mouth: Positive hearing normal; negative hard of hearing, hoarseness, dry mouth in morning, change in vision, itchy eyes, eye pain, swallowing Difficulty, ear pain, nose bleed, headache(s), mouth pain, nasal congestion, nasal discharge, post nasal drip, sinus pain, sinus pressure, sore throat or other Cardio Cardiovascular: Negative chest pain, chest pain at rest, chest pain with activity, irregular heart rhythm, edema, shortness of breath when lying down, palpitations, murmur or other Resp Respiratory: Positive as per HPI, shortness of breath shortness of breath: Positive with activity and cough cough: Positive non-productive; negative pain with cough, wheezing, chest congestion, chest tightness, pain on inspiration, inhalers, increase use of rescue inhalers, snoring, apnea or other Gastro Gastrointestional: Negative bloody stools, change in appetite, difficulty swallowing, reflux, hematemesis, melena stool, loose stool, constipation or other Genitourinary: Positive nocturia; negative blood in urine, pain with urination or other Musc Musculoskeletal: Negative body pain, back pain, neck pain or other Skin/Breast Skin/Breast: Negative dry skin, itching, rash, unusual bruising, breast lump or other Neuro Neurological: Negative restless legs, confusion, weakness or other Psych Psychocological: Positive abnormal sleep pattern; negative anxiety, thoughts of hurting self/others, hopelessness or other Lymph Lymphatic: Negative easy bleeding, easy bruising, swollen lymph nodes or other Exam Const Constitutional: Positive conversant, cooperative, in no acute respiratory distress, healthy appearing, well developed, well nourished, good hygiene and smells of smoke Head Head: Positive normocephalic and atraumatic; negative cyanosis of lips/distal nose Eyes Eye: Positive clear conjunctiva; negative nystagmus or scleral abnormality Ears Ear: Positive hearing normal and external ears normal; negative hard of hearing Nose Nose: Positive external nose normal and no nasal discharge; negative epistaxis Mouth Mouth: Positive oral mucosae normal, no lesions, dentures and posterior oropharynx is adequate; negative post nasal drip, malodorous breath or oral thrush present Mallampati Score: I: Mallampati Score Neck Neck: Positive normal visual inspection, full ROM and trachea midline; negative lymphadenopathy, JVD or tender Chest Wall Chest: Positive symmetric chest movement and increased A/P diameter Resp lung sounds: Positive clear to auscultation, diminished, normal respiratory effort and prolonged expiratory time; negative wheezes, rhonchi, rales, dullness to percussion or wheeze present on forced exhalation Cardio Cardiac: Positive regular rate, regular rhythm, S1 normal and S2 normal; negative murmur GI GI: Positive normal to inspection; negative distended Genitourinary: Positive deferred Musc Musculoskeletal: Positive steady gait and ROM normal; negative kyphosis or scoliosis Skin Pulmonary Skin Exam: Positive intact; negative rash Pulses Pulse: No radial pulses present (left pulse present, right absent secondary to h/o trauma) Extremities Extremities: Yes capillary refill normal, No clubbing, No cyanosis, No edema Neuro Neurologic: Yes conversant, Yes no focal neuro deficits, Yes normal concentration, Yes understands questions, Yes normal cognition, Yes normal coordination, Yes cooperative Lymph Lymphatic: No lymphadenopathy, No tenderness, No cervical adenopathy Psych Appearance: Positive grossly normal, eye contact and well kempt Mental Status: Positive mental status grossly normal Mood: Positive other (depressive) Affect: Positive sad and flat Coding Level of Care Code Off vis,est,level 4 Diagnoses Pulmonary nodule R91.1 Tobacco dependence F17.200 08/04/18 0919 <Electronically signed by Mariana HILTONC> Date Mariana Austin Signature: Date (if applicable) CC: Donell Moralez MD 12 LEAD ELECTROCARDIOGRAM Observed: 08/03/2018 Status: F Source: [place] 3:05 PM [facility] REPOSITORY [facility] Cardiovascular Services [address] [place] [address] 12 Lead EKG 07/30/182023 MR#: [id number] Acct: [id number] Name: DEION CHAU Rep #: [id number] : 1950 68 From: Osbaldo Baht MD Attending Dr: Beltran Michel M.D. Status: DIS IN Ordering Dr: Jose Luis Wiley MD Date: 07/30/18 Location: [facility] Sex: M C Admitted: 07/31/18 Test Reason : DIZZINESS Blood Pressure : / mmHG Vent. Rate : 086 BPM Atrial Rate : 086 BPM P-R Int : 148 ms QRS Dur : 086 ms QT Int : 366 ms P-R-T Axes : 045 -17 041 degrees QTc Int : 437 ms Sinus rhythm with Premature atrial complexes Otherwise normal ECG Confirmed by BRITTANY HOOVER, OSBALDO ([id number]), scientific editor LUC FRANKEL ([id number]) on 08/03/2018 3:05:22 PM Referred By: Jackson Fields Confirmed By:OSBALDO BHAT MD 08/03/18 1505 Date Osbaldo Bhat MD CC: Beltran Michel M.D.; Donell Moralez MD; Jose Luis Wiley MD Signed DISCHARGE SUMMARY Observed: 08/02/2018 Status: F Source: [place] 12:11 PM [facility] REPOSITORY [facility] Medical Records Department [address] [place] [address] Discharge Summary 08/02/18 1202 MR#: [id number] Acct: [id number] Name: DEION CHAU Rep #: [id number] : 1950 68 From: Beltran Michel MD PCP: Donell Moralez MD Status: ADM IN Y Location: [place] [address] Discharge Date and Diagnosis - Problem List Patient Problems: Active and Suspected Problems (Last Reviewed 07/31/18 @ 06:17 by Carlo Farley MD) Acute pyelonephritis (Acute) Complicated UTI (urinary tract infection) (Acute) SAWYER (acute kidney injury) (Acute) Date of Admission: 07/31/18 Date of Discharge: 08/02/18 - Primary Discharge Diagnosis Active and Suspected Problems (Last Reviewed 07/31/18 @ 06:17 by Carlo Farley MD) Acute pyelonephritis (Acute) Acute complicated UTI SAWYER - Secondary Discharge Diagnosis Chronic Problems (Last Reviewed 07/31/18 @ 06:17 by Carlo Farley MD) Chest pain on exertion (Chronic) History of bladder cancer (Chronic) Hematuria (Chronic) Depression (Chronic) Pulmonary nodule (Chronic) Hypertension (Chronic) GERD (gastroesophageal reflux disease) (Chronic) Peripheral vascular disease (Chronic) has had a stent left groin Tobacco dependence (Chronic) Enlarged prostate (Chronic) Hospital Course and Treatment Operations: None, - - Cystoscopy with bilateral ureteral stent placement Procedures: None Summary of Care Provided: The patient is a 68 year old M who recently underwent lower and urinary tract instrumentation with ureteral stenting on the right ureter. Presented to the hospital several days later with fever, chills, malaise, anorexia and myalgias and was found to be severely septic with SAWYER as well. Urinalysis was abnormal and cultures eventually grew Enterococcus faecalis. Patient was treated with IV ceftriaxone and infectious disease consulted as well. Patient has improved with resolution of fever and leukocytosis. Today he feels better and has been afebrile for greater than 48 hours and he is stable for discharge home. He will follow up with his urologist as as scheduled and with his PCP in 2 weeks.[] Discharge Activity: Return to Normal Activity, No Restrictions, May Drive Call your doctor if you observe: Fever of 101 or Higher Home Medications: Medications to take at Discharge Finasteride [Proscar] 5 mg PO DAILY 04/14/18 Tamsulosin HCl [Flomax] 0.4 mg PO BID 04/14/18 Ciprofloxacin [Cipro] 500 mg PO BID 14 Days #28 tab 08/02/18 L. Rhamnosus GG/Inulin [Culturelle Probiotics Capsule] 1 ea PO BID 30 Days #60 cap 08/02/18 Following Prescrptions Were Given to Patient: Ciprofloxacin [Cipro] 500 mg PO BID 14 Days #28 tab L. Rhamnosus GG/Inulin [Culturelle Probiotics Capsule] 1 ea PO BID 30 Days #60 cap Primary Care Physician: Donell Moralez MD [Primary Care Provider] - Please follow up with your Primary Care Physician in: in 2 weeks Please Follow Up With: Donell Moralez MD Disposition: Home Minutes spent on discharge:: 35 Patient Condition:: Good Medical Necessity - Tobacco Use Smoking Status: Current every day smoker Meaningful Use Info Meaningful Use Diagnoses (Choose all that apply): None applicable Code Visit Inpatient E AND M: 67772 Disch Hosp 08/02/18 1211 <Electronically signed by Beltran Michel MD> Date Beltran Michel MD Cosigner Signature (if applicable): Date CC: Beltran Michel M.D.; Donell Moralez MD Signed DISCHARGE INSTRUCTION Observed: 08/02/2018 Status: F Source: [place] 12:02 PM [facility] REPOSITORY [facility] Medical Records Department [address] [place] [address] Instructions for Home/Discharge Instructions 08/02/18 1159 MR#: [id number] Acct: [id number] Name: DEION CHAU Rep #: [id number] : 1950 68 From: Beltran Michel MD PCP: Donell Moralez MD Status: ADM IN - Discharge Diagnoses Current Active Problems: Current Active and Chronic Problems (Last Reviewed 07/31/18 @ 06:17 by Carlo Farley MD) Acute complicated UTI Acute pyelonephritis (Acute) You will use the following diet at home:: No restrictions, Regular Your food should be the consistency of: Regular Your liquids should be the consistency of: Regular/Thin Discharge Activity: Return to Normal Activity, No Restrictions, May Drive Call your doctor if you observe: Fever of 101 or Higher Allergies/Adverse Reactions: Allergies bupropion [From Wellbutrin] Allergy (Verified 07/30/18 19:40) Unknown cephalexin [From Keflex] Allergy (Verified 07/30/18 19:40) Unknown Penicillins Allergy (Verified 07/30/18 19:40) Unknown Medications to take at Discharge Finasteride [Proscar] 5 mg PO DAILY 04/14/18 Tamsulosin HCl [Flomax] 0.4 mg PO BID 04/14/18 Ciprofloxacin [Cipro] 500 mg PO BID 14 Days #28 tab 08/02/18 L. Rhamnosus GG/Inulin [Culturelle Probiotics Capsule] 1 ea PO BID 30 Days #60 cap 08/02/18 The following prescriptions were given: Ciprofloxacin [Cipro] 500 mg PO BID 14 Days #28 tab L. Rhamnosus GG/Inulin [Culturelle Probiotics Capsule] 1 ea PO BID 30 Days #60 cap Primary Care Physician: Donell Moralez MD [Primary Care Provider] - Please follow up with your Primary Care Physician in: in 2 weeks Test Results: Test results from this visit will be discussed in further detail at your follow-up appointment, if applicable. Proposed Discharge Date: 08/02/18 08/02/18 1202 <Electronically signed by Beltran Michel MD> Date Beltran Michel MD CC: Mahi Gunter MD; Alhaji Marie MD; Donell Moralez MD CBC W/DIFF, AUTOMATED Collected: 08/01/2018 Status: F Source: [place] 5:45 AM [facility] REPOSITORY TYPE CODE TESTS RESULT OUT OF RANGE REFERENCE UNITS LAB L100.1000 4.4-11.0 K/mm3 Normal WBC 9.2 LAB L100.1200 4.6-6.2 M/mm3 Low RBC 3.73 LAB L100.1300 13.0-16.5 g/dl Low HGB 11.4 LAB L100.1400 40-54 % Low HCT 34.2 LAB L100.1500 80-94 fL Normal MCV 91.7 LAB L100.1600 27.0-32.0 pg Normal MCH 30.6 LAB L100.1700 32-36 g/gl Normal MCHC 33.3 LAB L100.1810 11.6-14.6 % Normal RDW CV 14.4 LAB L100.1820 35.1-43.9 fl High RDW SD 47.0 LAB L100.1900 150-450 K/mm3 Low PLT 146 LAB L100.2000 6.2-12.0 fl Normal MPV 11.0 LAB L100.2100 47-70 % Normal NEUT% 68.4 LAB L100.2200 19-41 % Low LY% 12.9 LAB L100.2300 0-10 % High MONO% 18.2 LAB L100.2400 0-5 % Normal EO% 0.1 LAB L100.2500 0-1 % Normal BASO% 0.2 LAB L100.2550 0.0-0.9 % Normal IM GRAN % 0.200 Result Comment: IG% - Immature Granulocytes (promyelocytes, myelocytes and metamyelocytes) > 1% indicates that a LEFT SHIFT is Present. LAB L100.2620 2.0-7.7 X10 3/uL Normal Absolute Neut 6.3 LAB L100.2720 0.83-4.51 X10 3/ul Normal Absolute Lymph 1.18 Performed By: #### L100.0100 #### [facility] [address] [facility]. [place], [place], [address] COMPREHENSIVE METABOLIC Collected: 08/01/2018 Status: F Source: [facility] 5:45 AM [facility] REPOSITORY TYPE CODE TESTS RESULT OUT OF RANGE REFERENCE UNITS LAB L501.0100 74-106 mg/dL Normal GLU 98 Result Comment: Please note revised GLUCOSE reference range effective 2017. LAB L501.1000 7-18 mg/dL High BUN 29 LAB L501.1100 0.70-1.30 mg/dL Normal CREAT,SERUM 1.22 Result Comment: The validity of the calculated GFR AND GFRAA in patients over 70 years has not been determined. Clinical correlation is essential. LAB L501.1110 >60 mL/min Normal EST GFR 63 Result Comment: Non- GFR Calc LAB L501.1115 >60 mL/min Normal EST GFR - AA 76 Result Comment: GFR Calc LAB L501.1255 ml/min Normal Estimated CRCL 66.72 LAB L501.1300 10-20 RATIO High BUN/CRE 23.8 LAB L501.1500 6.4-8. g/dL Low 2 T PROT 6.2 LAB L501.1800 3.2-5. g/dL Low 0 ALB 2.3 LAB L501.1950 2.2-4. g/dL Normal 2 GLOB 3.9 LAB L501.2000 0.9-2. RATIO Low 4 A/G 0.6 LAB L501.2200 8.5-10 mg/dL Low .1 CA 8.4 LAB L501.4100 15-37 U/L Low AST 10 LAB L501.4305 45-117 U/L Normal ALK P 65 LAB L501.4405 16-61 U/L Low ALT 11 LAB L501.4600 0.20-1 mg/dL Normal .00 T BILI 0.40 LAB L501.5300 136-14 mmol/L Normal 5 NA 143 LAB L501.5600 3.5-5. mmol/L Normal 1 K 4.6 LAB L501.5900 98-107 mmol/L High CL 111 LAB L501.6100 21.0-3 mmol/L Normal 2.0 CO2 24.0 LAB L501.6200 5-15 Normal GAP 8 Performed By: #### L500.4050 #### [facility] [address] [facility] [place], [address] ABDOMEN/PELVIS W IV CONT Observed: 07/31/2018 Status: F Source: [place] ONLY 11:22 AM [facility] REPOSITORY [facility] Imaging Services [address] [place] [address] Abdomen/Pelvis W IV Cont ONLY MR#: [id number] Acct: [id number] Name: DEION CHAU Rep #: [id number] : 1950 M 68 From: Hoang Mcfadden MD PCP: Donell Moralez MD Status: ADM IN Study: Abdomen/Pelvis W IV Cont ONLY Date of Exam: 07/31/18 Exam# [id number] Ordering Dr: Beltran Michel MD STUDY: CT ABDOMEN AND PELVIS WITH CONTRAST REASON FOR EXAM: Male, 68 years old. Right flank pain and sepsis RADIATION DOSAGE (If Supplied By Facility): CTDIvol = ( 14.38 ) mGy, DLP = ( 2014.16 ) mGycm TECHNIQUE: Transaxial images were obtained from the dome of the diaphragm to the symphysis pubis without oral contrast. 100 ml of Isovue 300 contrast was administered. Sagittal and coronal images were reconstructed. Individualized dose optimization techniques were used for this CT. COMPARISON: None. FINDINGS: There is minor atelectasis at the right lung base. The visualized portions of the heart are within normal limits. There is a small hiatal hernia. There are tiny air bubbles in the periesophageal fat of indeterminate etiology Liver is normal size. There is a tiny hypoattenuated density of uncertain etiology or significance. Bile ducts aren't dilated. Contracted thick-walled gallbladder without calcified stones of uncertain significance. Normal spleen. Normal pancreas. Normal bilateral adrenal glands. 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 The left kidney is not obstructed.. There is a small intrarenal cyst The right kidney is swollen but not obstructed however there is a ureterovesical stent present. There is stranding of the perinephric fat bilaterally as well as small amount of fluid in the anterior and posterior pararenal spaces Normal visualized stomach. Mild nonspecific ileus with diffuse fecal retention in the colon.. The appendix is visualized and appears normal. Atherosclerotic changes of the aorta with infrarenal aneurysm measuring 2.6 x 2.95 cm. Normal inferior vena cava. Normal retroperitoneum. Normal urinary bladder. Nonspecific enlargement of the prostate. Normal abdominal wall. Left hip prosthesis is present CT/Abdomen/Pelvis W IV Cont ONLY IMPRESSION: Horseshoe kidney deformity with diffusely enlarged right renal moiety with associated stranding and fluid in the perinephric fat which may be consistent with acute inflammatory changes. No evidence for hydronephrosis status post ureterovesical stent placement. Infrarenal aortic aneurysm measuring 2.6 x 2.95 cm Small hiatal hernia with incidental finding of air bubbles in the periesophageal fat possibly due to prior perforation however clinical correlation is recommended Electronically Signed: Hoang Mcfadden MD at 22:23 EDT , Service support , CC: Beltran Michel M.D.; Donell Moralez MD Learning Coordinator: Signed CONSULTATION Observed: 07/31/2018 Status: F Source: [place] 10:52 AM [facility] REPOSITORY [facility] Medical Records Department [address] [place], [place] [address] [address] Consultation 07/31/18 1047 MR#: [id number] Acct: [id number] Name: DEION CHAU Rep #: [id number] : 1950 68 From: Alhaji Marie MD PCP: Donell Moralez MD Status: ADM IN Y Location: [place] [address] Problem List (1) Acute pyelonephritis Status: Acute Reason for Consult: pyelo Consulted by: Dr. Farley History of Present Illness: The patient is a 68 year old M with BPH and bladder cancer s/p resection, then recent R ureteral stent at end of June. Has been having 4 weeks of chills, dysuria, and R sided flank pain. Also with new dizziness. Came to ED, started on ceftriaxone, feeling mildly better this AM. No fever documented here. Full ROS performed and neg except as noted above. - Medical History Past Medical History (Chronic Problems): Chronic Problems (Last Reviewed 07/31/18 @ 06:17 by Carlo Farley MD) Chest pain on exertion (Chronic) History of bladder cancer (Chronic) Hematuria (Chronic) Depression (Chronic) Pulmonary nodule (Chronic) Hypertension (Chronic) GERD (gastroesophageal reflux disease) (Chronic) Peripheral vascular disease (Chronic) has had a stent left groin Tobacco dependence (Chronic) Enlarged prostate (Chronic) Allergies/Adverse Reactions: Allergies bupropion [From Wellbutrin] Allergy (Verified 07/30/18 19:40) Unknown cephalexin [From Keflex] Allergy (Verified 07/30/18 19:40) Unknown Penicillins Allergy (Verified 07/30/18 19:40) Unknown Home Medications: Ambulatory Orders Medication Instructions Recorded Finasteride [Proscar] 5 mg PO DAILY 04/14/18 Tamsulosin HCl [Flomax] 0.4 mg PO BID 04/14/18 - Social History Tobacco Use: cigarettes Vital Signs Temp Pulse Resp BP Pulse Ox 98.8 F 82 16 111/57 L 93 07/31/18 08:05 07/31/18 08:05 07/31/18 08:05 07/31/18 08:05 07/31/18 08:05 Oxygen Delivery Method Room Air Weight: 81.4 kg Body Mass Index (BMI) 23.0 Laboratory Tests Past 24 Hrs Sodium 136 Potassium 3.6 Chloride 105 Carbon Dioxide 23.0 Anion Gap 8 - Other Studies Radiology: [] reviewed Other Studies: [] Route of nutrition/ use of supplements: [] Nutritional Intake: [] IV Site: [] Buitrago Catheter: [] - Physical Exam General: Alert, Oriented x3, Cooperative, No apparent distress HEENT: Atraumatic, PERRLA, EOMI Neck: Supple, No Nodes Lungs: Clear to auscultation, Normal air movement Cardiovascular: Regular rate, Regular Rhythm Abdomen: Soft, Non Tender, Non-Distended, - - mild R flank pain Extremities: Edema Skin: No rashes IV Site: Peripheral, without redness Musculoskeletal: No Tenderness to Palpation of Joints or Extremities Neurological: Cranial nerves II-XII grossly intact - Assessment/Plan Antibiotics: [] Assessment/Plan: [] Active and Suspected Problems (Last Reviewed 07/31/18 @ 06:17 by Carlo Farley MD) Acute pyelonephritis (Acute) Ucx and bcx pending. On ceftriaxone. Ureteral stent in place. Will check renal u/s to look for stone, hydro, abscess. If condition worsens, would change ceftriaxone to cefepime to cover for nosocomial organisms given recent procedure. Will follow, thank you. 07/31/18 1052 <Electronically signed by Alhaji Marie MD> Date Alhaji Marie MD Cosigner Signature (if applicable): Date CC: Mahi Gunter MD; Alhaji Marie MD; Donell Moralez MD Signed KIDNEY AND BLADDER Observed: 07/31/2018 Status: F Source: [place] 10:49 AM [facility] REPOSITORY [facility] Imaging Services [address] [place] [address] Kidney and Bladder MR#: [id number] Acct: [id number] Name: DEION CHAU Rep #: [id number] : 1950 M 68 From: Carlos Manuel Davis MD PCP: Donell Moralez MD Status: ADM IN Study: Kidney and Bladder Date of Exam: 07/31/18 Exam# [id number] Ordering Dr: Alhaji Marie MD STUDY: RENAL ULTRASOUND - COMPLETE REASON FOR EXAM: Male, 68 years old. Flank pain TECHNIQUE: Ultrasound evaluation of the kidneys was performed with real-time and static buenrostro-scale imaging. COMPARISON: None. FINDINGS: There is a horseshoe kidney. The right moiety measures 12.0 x 6.0 x 6.0 cm. Right renal cortex measures 1.6 cm. There is a right renal cyst measuring 1.3 x 1.0 x 1.1 cm. There is a linear echogenic structure of the right renal pelvis consistent with stent. The left renal moiety measures 12.0 x 4.9 x 5.2 cm. Left renal cortex measures 1.8 cm. There is a 1.4 x 1.2 x 1.0 cm left renal cyst. There is a nonobstructing 4 mm calculus of the left kidney. Neither ureter was visualized. The prevoiding bladder volume is 182 mL. The post void bladder volume is 161 mL. Bladder wall thickness is 4 mm. There is no evidence of bladder mass or calculus. The right ureteral jet was not visualized. A left ureteral jet was seen. A stent appears to be within the bladder. US/Kidney and Bladder IMPRESSION: Horseshoe kidney. Bilateral renal cysts. 4 mm left renal nonobstructing calculus. Stent appears to be within the right renal pelvis and bladder. If clinically indicated, noncontrast CT of the abdomen and pelvis may be helpful for further evaluation. Electronically Signed: Carlos Manuel Davis MD at 16:18 EDT , Service support , CC: Alhaji Marie MD; Donell Moralez MD Learning Coordinator: Signed HISTORY AND PHYSICAL Observed: 07/31/2018 Status: F Source: [place] EXAM 6:22 AM [facility] REPOSITORY [facility] Medical Records Department [address] [place] [address] History and Physical 07/31/18 0022 MR#: [id number] Acct: [id number] Name: DEION CHAU Rep #: [id number] : 1950 68 From: Carlo Farley MD PCP: Donell Moralez MD Status: ADM IN Location: [place] [address] Problem List (1) Acute pyelonephritis Status: Acute (2) History of bladder cancer Status: Chronic (3) Ureteral stenosis, right Status: Acute (4) Tobacco dependence Status: Chronic History of Present Illness Date of Admission: 07/31/18 Chief Complaint: Fever, chills and dysuria 4 weeks. The patient is a 68 year old M with a significant history of BPH, bladder cancer status post resection; stricture of distal right ureter after resection of tumor status post ureteral stent; who presents with 4 weeks of fever, chills and dysuria. Patient reports that before before his bladder resection and ureteral stent placement he had these symptoms and these symptoms has continued to persist. Associated with his symptoms is lightheadedness. Further he reports that about 6 days ago he had a 15 minute episode where he had an imbalance and was walking towards his left side. At emergency department because of elevated d-dimer a CTA of his chest was done. A CTA showed no pulmonary embolism but it showed a spiculated 1.2 cm nodule of the posterior right costophrenic sulcus which was similar to previous study; as well as chronic findings. Brain CT did not show any acute pathology. His urinalysis was abnormal. Past Medical History Past Medical History (Chronic Problems): Chronic Problems Chest pain on exertion (Chronic) History of bladder cancer (Chronic) Hematuria (Chronic) Depression (Chronic) Pulmonary nodule (Chronic) Hypertension (Chronic) GERD (gastroesophageal reflux disease) (Chronic) Peripheral vascular disease (Chronic) has had a stent left groin Tobacco dependence (Chronic) Enlarged prostate (Chronic) Medical History: Medical History (Last Reviewed 07/31/18 @ 06:17 by Carlo Farley MD) Chest pain on exertion (Chronic) R07.9 History of bladder cancer (Chronic) Z85.51 Encounter for fitting of ureteral stent (Acute) Z46.6 Ureteral stenosis, right (Acute) N13.5 Ureteral stenosis, left (Acute) N13.5 Hematuria (Chronic) R31.9 Depression (Chronic) F32.9 Bilateral hydronephrosis (Acute) N13.30 Hydroureter on left (Acute) N13.4 Hydroureter on right (Acute) N13.4 Acute kidney injury (Acute) N17.9 Pulmonary nodule (Chronic) R91.1 Hypertension (Chronic) I10 GERD (gastroesophageal reflux disease) (Chronic) K21.9 Peripheral vascular disease (Chronic) I73.9 has had a stent left groin Tobacco dependence (Chronic) F17.200 Enlarged prostate (Chronic) N40.0 Allergies bupropion [From Wellbutrin] Allergy (Verified 07/30/18 19:40) Unknown cephalexin [From Keflex] Allergy (Verified 07/30/18 19:40) Unknown Penicillins Allergy (Verified 07/30/18 19:40) Unknown Home Medications: Ambulatory Orders Medication Instructions Recorded Finasteride [Proscar] 5 mg PO DAILY 04/14/18 Tamsulosin HCl [Flomax] 0.4 mg PO BID 04/14/18 Surgical History: Surgical History (Last Reviewed 07/31/18 @ 06:18 by Carlo Farley MD) History of carpal tunnel surgery of right wrist (Resolved) Z98.890 History of left hip replacement (Resolved) Z96.642 Surgical History: total hip arthroplasty - Left hip, - - Resection of a bladder tumor by Dr. Jose Juan Fields in November 2017, repair of laceration to the right wrist after he put his hand through a window. Stent LLE Psychiatric History: No pertinent psych hx Lives: Alone Smoking Status: Current every day smoker - Smokes L AND M light Alcohol: Occasional - *Family History Paternal Family History: Family History (Last Updated 06/11/18 @ 08:29 by Malinda Pappas) Father Heart disease Mother Diabetes History Items: Heart Disease, - - Peripheral vascular disease Review of Systems Constitutional: Reports: Chills, Fever Eyes: Denies: Blurred vision, Pain HEENT: Reports: Difficulty Hearing Cardiovascular: Denies: Chest Pain, Palpitations Respiratory: Denies: Cough, Shortness of breath at rest, Sputum production Gastrointestinal: Reports: Nausea - Nausea one time; occurring a day before admission. Genitourinary: Reports: Dysuria Musculoskeletal: Denies: Joint Pain, Joint Tenderness Skin: Denies: Rash, Wounds Neurological: Reports: Balance problems - Resolved Psychiatric: Denies: Anxiety, Depression, Homicidal Ideations, Suicidal Ideations Hematologic/ Lymphatic: Denies: Easy Bruising, Easy Bleeding VTE Information - Inpt Only VTE Present on Admission: No VTE Mechan Device Prophylaxis: None VTE Pharm Prophylaxis ordered?: Yes Patient Problems: Active and Suspected Problems Acute pyelonephritis (Acute) - Physical Exam General: Alert, Oriented x3, - - Looks sick HEENT: Atraumatic, PERRLA, EOMI, Normocephalic Neck: Supple, No JVD, Negative Carotid Bruits Lungs: Clear to auscultation, Normal air movement Cardiovascular: Regular rate, No murmurs Abdomen: Bowel Sounds Present Extremities: No edema, Capillary Refill Less than 3 Seconds Skin: No rashes, No breakdown Musculoskeletal: No Tenderness to Palpation of Joints or Extremities Neurological: Cranial nerves II-XII grossly intact, - - Poor gait Psych/Mental Status: Normal Affect, Appropriate Vital Signs Temp Pulse Resp BP Pulse Ox 99.2 F H 89 25 H 122/62 H 95 07/30/18 19:37 07/30/18 22:12 07/30/18 22:12 07/30/18 19:37 07/30/18 22:12 Oxygen Delivery Method Room Air Weight: 86.636 kg Body Mass Index (BMI) 25.2 Laboratory Tests Past 24 Hrs WBC 14.9 H RBC 4.65 WBC RBC Hgb Hct MCV MCH MCHC RDW RDW Differential Plt Count MPV Assessment/Plan All Active Problems Acute pyelonephritis (Acute) History of carpal tunnel surgery of right wrist (Resolved) History of left hip replacement (Resolved) Encounter for fitting of ureteral stent (Acute) Ureteral stenosis, right (Acute) Ureteral stenosis, left (Acute) Bilateral hydronephrosis (Acute) Hydroureter on left (Acute) Hydroureter on right (Acute) Acute kidney injury (Acute) Chest tightness or pressure (Resolved) The patient is a 68 year old M with a significant history of BPH, bladder cancer status post resection; stricture of distal right ureter after resection of tumor status post ureteral stent; who presents with 4 weeks of fever, chills and dysuria; lightheadedness and a brief episode of poor gait consistent with urinary tract infection; probable acute pyelonephritis. Probable acute pyelonephritis Patient with chills, fever and dysuria with stents in the ureter and history of tumor resection from bladder Review of labs showed a neutrophilic leukocytosis with white count of 14.9. Mild hyponatremia likely due to infection Received ceftriaxone at emergency department Ceftriaxone continued Because patient is a known patient of Dr. Fields; will consult up Donnie. Because his symptoms has persisted for about 1 months we will consult infectious disease to optimize management. Most likely his imbalance and lightheadedness was because of his urinary tract infection however will order MRI to rule out any posterior circulation stroke. Trend CBC SAWYER Creatinine 1.64. Baseline creatinine is around 1.2 BUN over creatinine is less than 20 Likely intrarenal from kidney infection. Received IV fluid at emergency department Maintenance normal saline infusion continued Avoid nephrotoxics Trend BMP BPH Flomax and finasteride continued Tobacco abuse Smokes cigarettes Declined a nicotine patch because he does not think he would withdrawal. Counseled Inpatient consult for smoking cessation. DVT prophylaxis Because of history of cancer, Lovenox ordered. Code Visit Inpatient E AND M: 70959 Init Hosp L3 07/31/18 0622 <Electronically signed by Carlo Farley MD> Date Carlo Farley MD Cosigner Signature: Date (if applicable) CC: Carlo Farley MD; Donell Moralez MD Signed BASIC METABOLIC Collected: 07/31/2018 Status: F Source: [place] PROFILE (BMP) 6:15 AM [facility] REPOSITORY TYPE CODE TESTS RESULT OUT OF RANGE REFERENCE UNITS LAB L501.0100 74-106 mg/dL High GLU 135 Result Comment: Fasting Glucose result greater than or equal to 126 mg/dL suggests DIABETES MELLITUS per A.D.A. criteria. Please note revised GLUCOSE reference range effective 2017. LAB L501.1000 7-18 mg/dL High BUN 25 LAB L501.1100 0.70-1.30 mg/dL High CREAT,SERUM 1.51 Result Comment: The validity of the calculated GFR AND GFRAA in patients over 70 years has not been determined. Clinical correlation is essential. LAB L501.1110 >60 mL/min Low EST GFR 49 Result Comment: Non- GFR Calc LAB L501.1115 >60 mL/min Low EST GFR - AA 59 Result Comment: GFR Calc LAB L501.1255 ml/min Normal Estimated CRCL 53.91 LAB L501.1300 10-20 RATIO Normal BUN/CRE 16.6 LAB L501.2200 8.5-10 mg/dL Low .1 CA 8.4 LAB L501.5300 136-14 mmol/L Normal 5 NA 136 LAB L501.5600 3.5-5. mmol/L Normal 1 K 3.6 LAB L501.5900 98-107 mmol/L Normal CL 105 LAB L501.6100 21.0-3 mmol/L Normal 2.0 CO2 23.0 LAB L501.6200 5-15 Normal GAP 8 Performed By: #### L500.2500 #### [facility] [address] [place], [address] BRAIN WITHOUT Observed: 07/31/2018 Status: F Source: [place] CONTRAST 2:48 AM [facility] REPOSITORY [facility] Imaging Services [address] [place] [address] Brain without Contrast MR#: [id number] Acct: [id number] Name: DEION CHAU Rep #: [id number] : 1950 M 68 From: Yi Frankel MD PCP: Donell Moralez MD Status: ADM IN Study: Brain without Contrast Date of Exam: 07/31/18 Exam# [id number] Ordering Dr: Carlo Farley MD STUDY: MRI BRAIN WITHOUT CONTRAST REASON FOR EXAM: Male, 68 years old. Drifting to one side with walking. TECHNIQUE: Standardized multiplanar fat and water weighted pulse sequences were obtained. COMPARISON: CT of the head dated July 30, 2018. FINDINGS: There is mild cerebral atrophy with widening of the extra- axial spaces and ventricular dilatation. There are a limited number of small white matter hyperintensities, distributed throughout the deep white matter tracts of the cerebral hemispheres, consistent with mild chronic white matter ischemic changes. Normal T2* images of the brain without demonstrated susceptibility artifact. There is no demonstrated hemosiderin stain. Normal T2* images of the brain without demonstrated susceptibility artifact. There is no demonstrated hemosiderin stain. Normal bilateral basal ganglia. Normal thalami. There is no extra-axial fluid accumulation. Normal flow voids within the major intracranial circulation suggesting patency by spin echo criteria. Normal sella turcica, pituitary gland, infundibular stalk, optic chiasm and hypothalamus. Normal tectal plate and pineal gland. Normal midbrain, boris and medulla. Normal cerebellum. Normal basal cisterns. Normal bilateral temporal bones. Normal bilateral internal auditory canals. No demonstrated orbital abnormality, within the constraints of a routine brain study. There is mucoperiosteal thickening in the right maxillary sinus and bilateral ethmoid sinuses. Normal calvarium and skull base. Normal visualized soft tissue structures. Normal visualized upper cervical spine. MRI/Brain without Contrast IMPRESSION: 1. Involutional changes of the brain, as described above. 2. No MR evidence for acute infarct. Electronically Signed: Yi Frankel MD at 9:45 EDT , Service support , CC: Carlo Farley MD; Donell Moralez MD Learning Coordinator: Signed EMERGENCY DEPARTMENT Observed: 07/31/2018 Status: F Source: ROYAL SUMMARY 12:22 AM [facility] REPOSITORY [facility] Medical Records Department [address] [place] [address] Emergency Department Summary 07/31/18 0011 MR#: [id number] Acct: [id number] Name: DEION CHAU Rep #: [id number] : 1950 68 From: Jose Luis Wiley MD PCP: Donell Moralez MD Status: REG ER - ER Visit Summary Date of Service: 07/31/18 Chief Complaint: Fever chills dysuria History of Present Illness: The patient is a 68 M who presents with numerous symptoms which include dizziness, blurred vision, difficulty walking, nausea and vomiting, dysuria since placement of stent and robotic surgery. Patient reported trouble with vision and vertigo with walking to the left. He states he was unable to walk to the right. This lasted approximately 15 minutes. He presently has no problem with balance, vertigo or nausea. He does complain of subjective fever and temperature documented to 100 F. He also complained of chills and sweats. He denied any trouble with speech or swallowing. He denied chest pain, palpitations or rapid heartbeat. He did complain of dyspnea, cough and dyspnea on exertion. He is a smoker and has history of lung problems. He reports abdominal pain with nausea without vomiting or diarrhea. He reports generalized weakness. Physical Examination: Vital signs noted and respiratory is 25. He is not febrile nor is he hypoxic. Head is atraumatic normocephalic. Pupils are equal round reactive. Extraocular muscles are intact. TMs are pearly white with landmarks noted. Nares patent with no drainage. Posterior pharynx without erythema or exudate. Uvula is midline. There is no dysphonia or dysphasia. Trachea is midline. There is no stridor with auscultation of the neck. Lungs reveal wheezing bilaterally. Expiratory phase is prolonged. Abdomen is soft with minimal tenderness. Incision site is intact without evidence infection. There is no CVA tenderness noted. Penis is not circumcised. Neuro exam is nonfocal. And specifically, patient's gait was observed and normal. So were testing was normal. Test Results: CT of the head reveals no acute process. Chest x-ray reveals chronic changes with no infiltrate. CTA of the chest reveals no pulmonary embolus, dissection. There is a 1.2 cm percolated nodule noted and unchanged. 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 White count is elevated at 14.9 thousand with 78 segs no bands. BUN and creatinine are 27 and 1.64 respectively with a GFR of 45. UA reveals pyuria with 10-25 WBCs 25-50 RBCs and 1+ bacteria. Lactate is normal at 1.4. D-dimer was elevated 2.64. Emergency Department Course and Treatment: With patient's constellation of symptoms need to evaluate for UTI/sepsis. With complaint of visual disturbance and walking to the left and complaining of problems with balance need to rule out intracranial bleed/ischemic stroke. Onset unknown. In light of urinalysis urine culture was obtained and he received 1 g of Rocephin. The enrollment services dean was asked to page Dr. Fields. I was informed he is out until August 03 and has no backup coverage. Treatment Plan: IV antibiotics, further neurologic workup Disposition: PCU Impression: 1. Vertigo evaluate for cerebellar infarct 2. Urinary tract infection 3. Renal insufficiency 4. Recent diagnosis of bladder cancer 5. Hydronephrosis secondary to ureteral stricture This note was generated with [employer] dictation software. It may contain incorrect words, spelling, and punctuation that were not noted in review of the chart prior to signing ED Disposition - Plan for ED Patient: Chief Complaint: Dizziness Referrals: Donell Moralez MD [Primary Care Provider] - What to do if you have Problems For any increased pain, shortness of breath, bleeding, nausea or vomiting, chest pain, or any unexpected problems, contact your Primary Care Provider. Call [facility] ([phone]) or report to the closest Emergency Room. Call 911 if necessary. 07/31/18 0022 <Electronically signed by Jose Luis Wiley MD> Date Jose Luis Wiley MD Cosigner Signature (If Indicated): Date CC: Jackson Fields MD; Donell Moralez MD Observed: 07/30/2018 Status: F Source: ROYAL CULTURE, BLOOD (WB) 10:30 PM [facility] REPOSITORY BC No growth in 5 days. Performed By: #### M200.1000 #### [facility] [address] [place], [address] CTA CHEST W/WO Observed: 07/30/2018 Status: F Source: AUNDREA CONTRAST 10:18 PM [facility] REPOSITORY [facility] Imaging Services [address] [address] CTA Chest W/WO Contrast MR#: [id number] Acct: [id number] Name: DEION CHAU Rep #: [id number] : 1950 68 From: Carlos Manuel Davis MD PCP: Donell Moralez MD Status: REG ER Study: CTA Chest W/WO Contrast Date of Exam: 07/30/18 Exam# [id number] Ordering Dr: Jose Luis Wiley MD STUDY: CTA CHEST REASON FOR EXAM: Male, 68 years old. Chest pain, shortness of breath, elevated d-dimer, fever and dizziness x4 weeks RADIATION DOSAGE (If Supplied By Facility): CTDIvol = ( 14.21 ) mGy, DLP = ( 579.04 ) mGycm TECHNIQUE: The examination was performed with the intravenous administration of 100ML ml of Isovue 370 contrast material. Post-processing of the angiographic images was performed, with multiplanar reformation and 3D reconstruction. Individualized dose optimization techniques were used for this CT. COMPARISON: None. FINDINGS: Normal enhancement of the main pulmonary artery and right and left pulmonary arteries. Normal enhancement of the bilateral peripheral pulmonary arteries. There is no demonstrated pulmonary embolism. There is borderline dilatation of the main pulmonary artery, measuring up to 3.0 cm. There are calcified plaques of the thoracic aorta. There is mild mural thrombus of the descending thoracic aorta. There is no demonstrated aortic dissection. The heart size is within normal limits. Coronary arterial calcifications are present. There is no pericardial effusion. Normal mediastinum. There are calcified right hilar nodes. Normal visualized trachea and bronchi. The lungs are well expanded. Moderately severe diffuse emphysematous changes of the lungs are seen. There are numerous scattered bilateral calcified granulomas. There is a spiculated 1.2 cm nodule of the posterior right costophrenic sulcus, appearing similar to the previous study. There are mild fibrotic changes of the posterior lung bases. There is no pleural effusion or significant pleural thickening. Normal chest wall structures. There is Schmorl's node formation of the superior endplate of T12 which is of no clinical significance. There is a large hiatal hernia with abdominal fat also noted within the hernia sac. There are numerous calcified splenic granulomas. CT/CTA Chest W/WO Contrast IMPRESSION: Normal CTA chest examination, without a demonstrated pulmonary embolism or arterial dissection. Borderline dilatation of the main pulmonary artery measuring up to 3.0 cm. Calcified plaques of the thoracic aorta. There is mild mural thrombus of the descending thoracic aorta. Scattered calcified pulmonary granulomas are seen bilaterally. There are calcified right hilar nodes. Moderate diffuse emphysematous changes of the lungs. Spiculated 1.2 cm nodule of the posterior right costophrenic sulcus, appearing similar to the previous study. Large hiatal hernia with abdominal fat also noted within the hernia sac. Electronically Signed: Carlos Manuel Davis MD at 23:52 EDT , Service support , CC: Donell Moralez MD; Jose Luis Wiley MD Learning Coordinator: Signed Observed: 07/30/2018 Status: F Source: A[place]DREA CULTURE, URINE 10:04 PM [facility] REPOSITORY Urine Culture ORGANISM 1: Enterococcus faecalis [place] Count >100,000 Enterococcus faecalis: REACTION Ampicillin $ <=2 S Benzylpenicillin NF 2 S Ciprofloxacin $ 1 S Gentamicin SYN-S S Levofloxacin $ 2 S Linezolid $$$$ 1 S Nitrofurantoin $ <=16 S Streptomycin $ SYN-S S Tetracycline NF >=16 R Vancomycin $ 1 S (NF) indicates non-formulary drug at [facility]. Approval by Infectious Disease Specialist required before non-formulary drugs may be ordered and/or dispensed. * CLSI guidelines does not recommend testing of cephalosporins. This interpretation is deduced from Beta-lactam/penicillin results. Performed By: #### M100.0650 #### [facility] [address] [place], [address] URINALYSIS, COMPLETE Collected: 07/30/2018 Status: F Source: ROYAL 8:15 PM [facility] REPOSITORY Order Comment: How was Urine Obtained? CLEAN CATCH TYPE CODE TESTS RESULT OUT OF RANGE REFERENCE UNITS LAB L400.3000 Yellow COLOR Normal Yellow LAB L400.3050 Clear Normal CLARITY Sl. Cloudy LAB L400.3200 Normal mg/dl Normal GLUCOSE, UR Normal LAB L400.3300 Negative mg/dL Normal BILIRUBIN URINE Negative LAB L400.3400 Negative mg/dl Normal KETONE UR Negative LAB L400.3465 1.002-1.030 Normal SP.GR. DIPSTX 1.015 LAB L400.3550 5.0 - 8.0 pH UR Normal 6.0 LAB L400.3600 Negative mg/dl High PROT DIPSTX 100 LAB L400.3700 Normal mg/dl Normal UROBILI Normal LAB L400.3750 Negative Normal NITRITE UR Negative LAB L400.3780 Negative /ul High OCCULT BLOOD-UR 250 LAB L400.3800 Negative /ul High LEUK ESTERASE 100 LAB L400.4050 0-5 /hpf WBC Normal 10-25 SEEN LAB L400.4100 0-5 /hpf Normal RBC-UA 25-50 SEEN LAB L400.4150 0-5 /hpf SQUAM Normal EPI 5-10 SEEN LAB L400.4300 None Seen /hpf Normal BACTERIA RARE LAB L400.4350 <or=2+ /hpf 0 Normal MUCUS, URINE SEEN LAB L400.4900 1+ Normal AMORPHOUS URATE Performed By: #### L400.0001 #### [facility] [address] [place], [address] D-DIMER QUANTITATIVE Collected: 07/30/2018 Status: F Source: AUNDREA (DVT/PE) 8:15 PM [facility] REPOSITORY TYPE CODE TESTS RESULT OUT OF RANGE REFERENCE UNITS LAB L300.8000 0.27-0.49 FEU/ug/m High alert D-DIMER 2.64 QUANT Result Comment: D-Dimer ELEVATED (>0.49): Additional studies and clinical assessments are indicated to conclude diagnosis of: Deep Vein Thrombosis (DVT) or Pulmonary Embolism (PE) CRITICAL VALUE VERIFIED. CALLED TO [place] [phone] 07/30/182046 Emelyn Negron. RESULTS READ BACK BY SAME. Performed By: #### L300.8000 #### [facility] [address] [place], [address] BASIC METABOLIC Collected: 07/30/2018 Status: F Source: AUNDREA PROFILE (BMP) 8:15 PM [facility] REPOSITORY TYPE CODE TESTS RESULT OUT OF RANGE REFERENCE UNITS LAB L501.0100 74-106 mg/dL High GLU 120 Result Comment: Fasting Glucose result from 100 to 125 mg/dL suggests IMPAIRED HOMEOSTASIS per A.D.A. criteria. Please note revised GLUCOSE reference range effective 2017. LAB L501.1000 7-18 mg/dL High BUN 27 LAB L501.1100 0.70-1.30 mg/dL High CREAT,SERUM 1.64 Result Comment: The validity of the calculated GFR AND GFRAA in patients over 70 years has not been determined. Clinical correlation is essential. LAB L501.1110 >60 mL/min Low EST GFR 45 Result Comment: Non- GFR Calc LAB L501.1115 >60 mL/min Low EST GFR - AA 54 Result Comment: GFR Calc LAB L501.1255 ml/min Normal Estimated CRCL 48.72 LAB L501.1300 10-20 RATIO Normal BUN/CRE 16.5 LAB L501.2200 8.5-10 mg/dL Normal .1 CA 9.5 LAB L501.5300 136-14 mmol/L Low 5 NA 134 LAB L501.5600 3.5-5. mmol/L Normal 1 K 3.8 LAB L501.5900 98-107 mmol/L Normal CL 102 LAB L501.6100 21.0-3 mmol/L Normal 2.0 CO2 23.0 LAB L501.6200 5-15 Normal GAP 9 Performed By: #### L500.2500 #### [facility] [place], [address] CBC W/DIFF, AUTOMATED Collected: 07/30/2018 Status: C Source: ROYAL 8:15 PM [facility] REPOSITORY TYPE CODE TESTS RESULT OUT OF RANGE REFERENCE UNITS LAB L100.1000 4.4-11.0 K/mm3 High WBC 14.9 LAB L100.1200 4.6-6.2 M/mm3 Normal RBC 4.65 LAB L100.1300 13.0-16.5 g/dl Normal HGB 14.3 LAB L100.1400 40-54 % Normal HCT 41.7 LAB L100.1500 80-94 fL Normal MCV 89.7 LAB L100.1600 27.0-32.0 pg Normal MCH 30.8 LAB L100.1700 32-36 g/gl Normal MCHC 34.3 LAB L100.1810 11.6-14.6 % Normal RDW CV 14.2 LAB L100.1820 35.1-43.9 fl High RDW SD 46.7 LAB L100.1900 150-450 K/mm3 Normal PLT 204 LAB L100.2000 6.2-12.0 fl Normal MPV 10.3 LAB L100.2100 47-70 % High NEUT% 77.7 LAB L100.2200 19-41 % Low LY% 7.6 LAB L100.2300 0-10 % High MONO% 14.5 LAB L100.2400 0-5 % Normal EO% 0.0 LAB L100.2500 0-1 % Normal BASO% 0.1 LAB L100.2550 0.0-0.9 % Normal IM GRAN % 0.100 Result Comment: IG% - Immature Granulocytes (promyelocytes, myelocytes and metamyelocytes) > 1% indicates that a LEFT SHIFT is Present. LAB L100.2620 2.0-7.7 X10 3/uL High Absolute Neut 11.6 LAB L100.2720 0.83-4.51 X10 3/ul Normal Absolute Lymph 1.13 LAB L100.4500 Normal SMEAR COMMENT SCANNED Result Comment: MONOCYTOSIS NOTED LAB L100.9900 Normal Reviewed PATH REV Result Comment: Neutrophilic leukocytosis. Clinical correlation necessary. Steve Goncalves M.D. 07/31/18 AMENDED REPORT 07/31/18 1458 PATH REV previously reported as: March Performed By: #### L100.0100 #### [facility] [address] [place], [address] LACTIC ACID Collected: 07/30/2018 Status: F Source: ROYAL 8:15 PM [facility] REPOSITORY Order Comment: Yes/No query for Sepsis Lactate Rule Y TYPE CODE TESTS RESULT OUT OF RANGE REFERENCE UNITS LAB L503.6005 0.4-2.0 mmol/L Normal LACTIC ACID 1.4 Performed By: #### L503.6005 #### [facility] [address] [place], [address] Observed: 07/30/2018 Status: F Source: ROYAL CULTURE, BLOOD (WB) 8:15 PM [facility] REPOSITORY BC No growth in 5 days. Performed By: #### M200.1000 #### [facility] [address] [place], [address] CHEST PA AND LATERAL Observed: 07/30/2018 Status: F Source: ROYAL 8:05 PM [facility] REPOSITORY [facility] Imaging Services [address] [place] [address] Chest PA and Lateral MR#: [id number] Acct: [id number] Name: DEION CHAU Rep #: [id number] : 1950 M 68 From: Carlos Manuel Davis MD PCP: Donell Moralez MD Status: REG ER Study: Chest PA and Lateral Date of Exam: 07/30/18 Exam# [id number] Ordering Dr: Jose Luis Wiley MD STUDY: X-RAY CHEST REASON FOR EXAM: Male, 68 years old. Multiple complaints TECHNIQUE: PA and lateral views of the chest. COMPARISON: Previous study of 07/08/2018 FINDINGS: teletypesetter monitor leads are present. The lungs are mildly hyperinflated. There is no demonstrated pleural abnormality. Normal size heart. Normal mediastinum and clara. Normal visualized pulmonary arteries. There are calcified plaques of the thoracic aorta. Normal visualized thoracic spine. Normal visualized ribs, clavicles, and shoulders. There is no demonstrated abnormality of the visualized soft tissue structures of the upper abdomen. RAD/Chest PA and Lateral IMPRESSION: Mildly hyperinflated lungs. Calcified plaques of the thoracic aorta. No acute cardiopulmonary disease process is seen. Chest findings are stable in the interval. Electronically Signed: Carlos Manuel Davis MD at 21:12 EDT , Service support , CC: Donell Moralez MD; Jose Luis Wiley MD Learning Coordinator: Signed BRAIN/HEAD WITHOUT Observed: 07/30/2018 Status: F Source: ROYAL CONTRAST 8:05 PM [facility] REPOSITORY [facility] Imaging Services [address] [place] [address] Brain/Head without Contrast MR#: [id number] Acct: [id number] Name: DEION CHAU Rep #: [id number] : 1950 M 68 From: Carlos Manuel Davis MD PCP: Donell Moralez MD Status: REG ER Study: Brain/Head without Contrast Date of Exam: 07/30/18 Exam# [id number] Ordering Dr: Jose Luis Wiley MD STUDY: CT BRAIN WITHOUT CONTRAST REASON FOR EXAM: Male, 68 years old. Fever x4 weeks, chills, dizziness RADIATION DOSAGE (If Supplied By Facility): CTDIvol = ( 44.99 ) mGy, DLP = ( 762.36 ) mGycm TECHNIQUE: Transaxial CT imaging of the brain was performed without administration of intravenous contrast material. Individualized dose optimization techniques were used for this CT. COMPARISON: None. FINDINGS: Normal soft tissue structures. Normal calvarium. Normal size ventricles and extra-axial spaces for the patient's age. Normal white matter tracts of the cerebral hemispheres. Normal basal ganglia and thalami. Normal brainstem. Normal cerebellum. There is no intracranial hemorrhage. There are no findings of an acute ischemic infarction. There is minimal mucosal thickening of the right maxillary sinus. There is opacification of a posterior left ethmoid air cell. CT/Brain/Head without Contrast IMPRESSION: Mild chronic sinusitis. There is no intracranial hemorrhage or evidence of infarct. Electronically Signed: Carlos Manuel Davis MD at 21:15 EDT , Service support , CC: Donell Moralez MD; Jose Luis Wiley MD Learning Coordinator: Signed CBC-COMPLETE BLOOD CNT Collected: 07/23/2018 Status: F Source: ROYAL NO DIFF 11:55 AM [facility] REPOSITORY TYPE CODE TESTS RESULT OUT OF RANGE REFERENCE UNITS LAB L100.1000 4.4-11.0 K/mm3 Normal WBC 9.0 LAB L100.1200 4.6-6.2 M/mm3 Normal RBC 4.66 LAB L100.1300 13.0-16.5 g/dl Normal HGB 14.3 LAB L100.1400 40-54 % Normal HCT 41.9 LAB L100.1500 80-94 fL Normal MCV 89.9 LAB L100.1600 27.0-32.0 pg Normal MCH 30.7 LAB L100.1700 32-36 g/gl Normal MCHC 34.1 LAB L100.1810 11.6-14.6 % Normal RDW CV 14.2 LAB L100.1820 35.1-43.9 fl High RDW SD 46.5 LAB L100.1900 150-450 K/mm3 High PLT 471 LAB L100.2000 6.2-12.0 fl Normal MPV 10.0 Performed By: #### L100.0500 #### [facility] [address] [place], [address] BASIC METABOLIC Collected: 07/23/2018 Status: F Source: AUNDREA PROFILE (BMP) 11:55 AM [facility] REPOSITORY TYPE CODE TESTS RESULT OUT OF RANGE REFERENCE UNITS LAB L501.0100 74-106 mg/dL Normal GLU 93 Result Comment: Please note revised GLUCOSE reference range effective 2017. LAB L501.1000 7-18 mg/dL High BUN 24 LAB L501.1100 0.70-1.30 mg/dL Normal CREAT,SERUM 1.23 Result Comment: The validity of the calculated GFR AND GFRAA in patients over 70 years has not been determined. Clinical correlation is essential. LAB L501.1110 >60 mL/min Normal EST GFR 62 Result Comment: Non- GFR Calc LAB L501.1115 >60 mL/min Normal EST GFR - AA 75 Result Comment: GFR Calc LAB L501.1300 10-20 RATIO Normal BUN/CRE 19.5 LAB L501.2200 8.5-10.1 mg/dL CA Normal 9.4 LAB L501.5300 136-145 mmol/L NA Normal 137 LAB L501.5600 3.5-5.1 mmol/L K Normal 4.1 LAB L501.5900 98-107 mmol/L CL Normal 105 LAB L501.6100 21.0-32.0 mmol/L Normal CO2 22.0 LAB L501.6200 5-15 Normal GAP 10 Performed By: #### L500.2500 #### [facility] [address] [place], [address] DISCHARGE INSTRUCTION Observed: 07/16/2018 Status: F Source: AUNDREA 7:40 AM [facility] REPOSITORY [facility] Medical Records Department [address] [place] [address] Instructions for Home/Discharge Instructions 07/16/18 0739 MR#: [id number] Acct: [id number] Name: DEION CHAU Rep #: [id number] : 1950 68 From: Jackson Fields MD PCP: Donell Moralez MD Status: ADM IN Discharge Diet: Light diet - advance as tolerated Discharge Activity: May not drive while taking narcotic pain medications. Return to work on:: 09/27/18 May resume sexual activity in: 6 weeks Call your doctor if your incision/area has: Continuous Slow Oozing, Sudden Increased Bleeding, Increased Pain/ Swelling, Increased Redness, Foul Smelling Discharge, Swelling at the incision site Call your doctor if you observe: Fever of 101 or Higher, Uncontrolled pain Suture Line Care: Avoid Pulling/Pushing, Avoid Pinching/Bending Catheter: Buitrago to leg bag, Buitrago to large bag Drain: [place] Allergies/Adverse Reactions: Allergies bupropion [From Wellbutrin] Allergy (Verified 07/08/18 13:05) Unknown cephalexin [From Keflex] Allergy (Verified 07/08/18 13:05) Unknown Penicillins Allergy (Verified 07/08/18 13:05) Unknown Medications to take at Discharge Aspirin E.C. [Ecotrin] 81 mg PO DAILY@0800 12/03/17 Pantoprazole Sodium [Protonix] 40 mg PO DAILY PRN PRN 12/03/17 Finasteride [Proscar] 5 mg PO DAILY 04/14/18 Tamsulosin HCl [Flomax] 0.4 mg PO BID 04/14/18 Amlodipine [Norvasc] 5 mg PO DAILY #30 tab 04/16/18 Ciprofloxacin [Cipro] 500 mg PO BID #14 tab 07/15/18 Docusate Sodium [Colace] 100 mg PO BID #20 cap 07/15/18 Hydrocodone/Acetaminophen [Amboy 5-325 Tablet] 1 ea PO Q4H PRN PRN 5 Days #14 tab 07/15/18 The following prescriptions were given: Hydrocodone/Acetaminophen [Amboy 5-325 Tablet] 1 ea PO Q4H PRN PRN 5 Days #14 tab PRN Reason: Pain Ciprofloxacin [Cipro] 500 mg PO BID #14 tab Docusate Sodium [Colace] 100 mg PO BID #20 cap Primary Care Physician: Donell Moralez MD [Primary Care Provider] - Test Results: Test results from this visit will be discussed in further detail at your follow-up appointment, if applicable. Please Follow Up With: Jackson Fields MD When: Make an appt next thrusday to see me. 07/16/18 6904 <Electronically signed by Jackson Fields MD> Date Jackson Fields MD CC: Donell Moralez MD CBC-COMPLETE BLOOD CNT Collected: 07/16/2018 Status: F Source: A[place]DREA NO DIFF 6:05 AM [facility] REPOSITORY TYPE CODE TESTS RESULT OUT OF RANGE REFERENCE UNITS LAB L100.1000 4.4-11.0 K/mm3 High WBC 13.2 LAB L100.1200 4.6-6.2 M/mm3 Low RBC 4.14 LAB L100.1300 13.0-16.5 g/dl Normal HGB 13.0 LAB L100.1400 40-54 % Low HCT 37.8 LAB L100.1500 80-94 fL Normal MCV 91.3 LAB L100.1600 27.0-32.0 pg Normal MCH 31.4 LAB L100.1700 32-36 g/gl Normal MCHC 34.4 LAB L100.1810 11.6-14.6 % Normal RDW CV 13.4 LAB L100.1820 35.1-43.9 fl High RDW SD 44.1 LAB L100.1900 150-450 K/mm3 Normal PLT 430 LAB L100.2000 6.2-12.0 fl Normal MPV 9.0 Performed By: #### L100.0500 #### [facility] [address] [place], [address] BASIC METABOLIC Collected: 07/16/2018 Status: F Source: AUNDREA PROFILE (BMP) 6:05 AM [facility] REPOSITORY TYPE CODE TESTS RESULT OUT OF RANGE REFERENCE UNITS LAB L501.0100 74-106 mg/dL High GLU 117 Result Comment: Fasting Glucose result from 100 to 125 mg/dL suggests IMPAIRED HOMEOSTASIS per A.D.A. criteria. Please note revised GLUCOSE reference range effective 2017. LAB L501.1000 7-18 mg/dL High BUN 29 LAB L501.1100 0.70-1.30 mg/dL High CREAT,SERUM 1.52 Result Comment: The validity of the calculated GFR AND GFRAA in patients over 70 years has not been determined. Clinical correlation is essential. LAB L501.1110 >60 mL/min Low EST GFR 49 Result Comment: Non- GFR Calc LAB L501.1115 >60 mL/min Low EST GFR - AA 59 Result Comment: GFR Calc LAB L501.1255 ml/min Normal Estimated CRCL 52.57 LAB L501.1300 10-20 RATIO Normal BUN/CRE 19.1 LAB L501.2200 8.5-10 mg/dL Normal .1 CA 8.6 LAB L501.5300 136-14 mmol/L Normal 5 NA 139 LAB L501.5600 3.5-5. mmol/L Normal 1 K 4.7 LAB L501.5900 98-107 mmol/L Normal CL 104 LAB L501.6100 21.0-3 mmol/L Normal 2.0 CO2 26.0 LAB L501.6200 5-15 Normal GAP 9 Performed By: #### L500.2500 #### [facility] [address] [facility] [place], [address] OPERATIVE REPORT Observed: 07/15/2018 Status: F Source: ROYAL 4:24 PM [facility] REPOSITORY [facility] Medical Records Department [address] [place] [address] Operative Report 07/15/18 1616 MR#: [id number] Acct: [id number] Name: DEION CHAU Rep #: [id number] : 1950 68 From: Jackson Fields MD PCP: Donell Moralez MD Status: REG [facility] [place] Location: [place] [address] 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 and develop stricture of the distal right ureter after resection of tumor Post-Operative Diagnosis: Same Surgery/Procedure Performed:: Cystoscopy, laparoscopic robotic assisted right ureteral neocystostomy, right stent placement Description of Surgical Findings:: There is a 68-year-old male has a long history of smoking who presented to the office was found to have a cancer involving the trigone and overlying both the ureteral orifices the tumor was resected completely at the require resection of the ureteral orifices stents were placed and then removed the scarred down so stretch the ureters again place stents again and this time the left ureter stay nice and open but the right ureter scar down again developed hydronephrosis on the right side. So today were to do a right sided reimplantation of the ureter into the bladder to restore drainage of the right kidney. 68-year-old male taken back to the operating room at the smooth induction of anesthesia he was placed supine on the table the abdomen was prepped and draped in usual sterile fashion the penis as well, I first went into the bladder the 21 Nicaraguan rigid cystourethroscope inspected the inside of the bladder did not identify any visible and active tumors within the bladder I could identify the left ureteral orifice, which is nice and open and patent and draining, I then drained the bladder put a catheter in the bladder we then went up to the abdomen is small incision above the umbilicus and insufflated the peritoneal cavity with CO2 gas placed the camera trocar and then my right arm trocar and left arm trocar and then we placed an air seal port the docked the robot we first released the sigmoid colon off the lateral sidewall the pelvis I then incised the peritoneum then dissected down until I found a dilated ureter crossing over the vessels headed towards the bladder I dissected along the ureter all the way down to 8 got into the bladder he could see it scarring down of the went to the bladder we placed a clip on the ureter and then transected the ureter here I then dropped the bladder created the space of Retzius and then put the bladder on lateral traction in order to do the reinflation limitation of the ureter on the posterior lateral side of the bladder the physiotherapist's assistant held the bladder laterally I opened up the bladder muscle until I got to the mucosal layer I then placed my first stay stitch between the spatulated ureter and the anastomotic site on the bladder once the ureter was lined up with the bladder then we opened up the bladder made a small incision in the bladder mucosa to line up with the ureteral orifice on the ureter to do a re-anastomosis of the ureter into the bladder we then used stitches to perform an anastomosis of the ureter to the bladder interrupted fashion all the way around this was done over a stent stent was placed by placing a wire up the left ureter and then advancing the stent once a stent was in good position we docked the stent into the bladder and we finished this and the anastomosis around the stent that this point the anastomosis was checked we filled the bladder with water and there was no leakage from the anastomosis is good refluxing water going up the ureter. Once the anastomosis was checked is watertight we left a catheter in place to gravity gravity drainage left the anastomosis in place the bladder was left in place we did not recheck the bladder back up in the ureter was non-kinked ureter was then draining right into the bladder we then used a Elbert Rachel stitch closed the 10 mm supra umbilical port and all the other ports were 8 mm today were closed and removed from the abdomen Steri-Strips and dressings a subcuticular stitches were placed patient anesthetic was reversed is taken back to the PACU in good condition stay overnight in the hospital discharge home tomorrow in follow-up in a week for checkup. Type of Anesthesia:: General Drains: stent and buitrago. - Admit VTE Documentation VTE Present on Admission: No VTE Mechan Device Prophylaxis: SCD's VTE Pharm Prophylaxis ordered?: No 07/15/18 1624 <Electronically signed by Jackson Fields MD> Date Jackson Fields MD CC: Jackson Fields MD; Donell Moralez MD Signed 12 LEAD ELECTROCARDIOGRAM Observed: 07/10/2018 Status: F Source: ROYAL 1:19 PM [facility] REPOSITORY [facility] Cardiovascular Services [address] [place] [address] EKG - [facility] 07/08/18 1245 MR#: [id number] Acct: [id number] Name: DEION CHAU Rep #: [id number] : 1950 68 From: Ganesh Walls MD Attending Dr: Donnie HOOVER,Jackson Manzano Status: PRE SDC Ordering Dr: Jackson Fields MD Date: 07/08/18 Location: [facility] Sex: M C Admitted: Test Reason : Blood Pressure : / mmHG Vent. Rate : 074 BPM Atrial Rate : 074 BPM P-R Int : 150 ms QRS Dur : 088 ms QT Int : 386 ms P-R-T Axes : 063 000 041 degrees QTc Int : 428 ms Normal sinus rhythm Normal ECG Confirmed by KAVITA HOOVER, GANESH ([id number]), scientific editor LUC FRANKEL ([id number]) on 07/10/2018 1:18:35 PM Referred By: Jackson Fields Confirmed By:GANESH WALLS MD 07/10/18 1318 Date Ganesh Walls MD CC: Jackson Fields MD; Donell Moralez MD Date Dictated: 07/08/181244 Date Transcribed: 07/08/181244 Learning Coordinator: Signed Observed: 07/10/2018 Status: F Source: [place] CULTURE, URINE 7:41 AM [facility] REPOSITORY Urine Culture Below infection level. ORGANISM 1: Mixed Gram Positive Organisms [place] Count 1000-10,000 Performed By: #### M100.0650 #### [facility] [address] [facility] [place], [address] CBC-COMPLETE BLOOD CNT Collected: 07/08/2018 Status: F Source: [place] NO DIFF 2:15 PM [facility] REPOSITORY TYPE CODE TESTS RESULT OUT OF RANGE REFERENCE UNITS LAB L100.1000 4.4-11.0 K/mm3 High WBC 11.3 LAB L100.1200 4.6-6.2 M/mm3 Normal RBC 4.61 LAB L100.1300 13.0-16.5 g/dl Normal HGB 14.2 LAB L100.1400 40-54 % Normal HCT 42.2 LAB L100.1500 80-94 fL Normal MCV 91.5 LAB L100.1600 27.0-32.0 pg Normal MCH 30.8 LAB L100.1700 32-36 g/gl Normal MCHC 33.6 LAB L100.1810 11.6-14.6 % Normal RDW CV 14.2 LAB L100.1820 35.1-43.9 fl High RDW SD 47.8 LAB L100.1900 150-450 K/mm3 Normal PLT 221 LAB L100.2000 6.2-12.0 fl Normal MPV 10.5 Performed By: #### L100.0500 #### [facility] [address] [place], [place], [address] COMPREHENSIVE METABOLIC Collected: 07/08/2018 Status: F Source: [place] PROFIL 2:15 PM [facility] REPOSITORY TYPE CODE TESTS RESULT OUT OF RANGE REFERENCE UNITS LAB L501.0100 74-106 mg/dL Normal GLU 97 Result Comment: Please note revised GLUCOSE reference range effective 2017. LAB L501.1000 7-18 mg/dL High BUN 22 LAB L501.1100 0.70-1.30 mg/dL Normal CREAT,SERUM 1.20 Result Comment: The validity of the calculated GFR AND GFRAA in patients over 70 years has not been determined. Clinical correlation is essential. LAB L501.1110 >60 mL/min Normal EST GFR 64 Result Comment: Non- GFR Calc LAB L501.1115 >60 mL/min Normal EST GFR - AA 77 Result Comment: GFR Calc LAB L501.1255 ml/min Normal Estimated CRCL 66.58 LAB L501.1300 10-20 RATIO Normal BUN/CRE 18.3 LAB L501.1500 6.4-8. g/dL Normal 2 T PROT 7.7 LAB L501.1800 3.2-5. g/dL Low 0 ALB 2.9 LAB L501.1950 2.2-4. g/dL High 2 GLOB 4.8 LAB L501.2000 0.9-2. RATIO Low 4 A/G 0.6 LAB L501.2200 8.5-10 mg/dL Normal .1 CA 9.1 LAB L501.4100 15-37 U/L Normal AST 16 LAB L501.4305 45-117 U/L Normal ALK P 116 LAB L501.4405 16-61 U/L Normal ALT 25 LAB L501.4600 0.20-1 mg/dL Normal .00 T BILI 0.90 LAB L501.5300 136-14 mmol/L Normal 5 NA 141 LAB L501.5600 3.5-5. mmol/L Normal 1 K 3.7 LAB L501.5900 98-107 mmol/L Normal CL 104 LAB L501.6100 21.0-3 mmol/L Normal 2.0 CO2 26.0 LAB L501.6200 5-15 Normal GAP 11 Performed By: #### L500.4050 #### [facility] [address] [place], [address] TYPE AND SCREEN Collected: 07/08/2018 Status: F Source: ROYAL 2:15 PM [facility] REPOSITORY Order Comment: CMV NEG? N Reason for Ordering Blood: Acute Are the blood/blood products to be transfused? N Is the patient having/had surgery? Y Anticipated time of surgery: 0700 Irradiated? N Leukodepleted? Y Surgery Date: 07/15/18 Type of Surgery: OTHER TYPE CODE TESTS RESULT OUT OF RANGE REFERENCE UNITS LAB B10.0800 AB Normal BLOOD TYPE GEL POSITIVE LAB B100.4000 Normal Antibody NEGATIVE Screen Performed By: #### B101.7450 #### [facility] [address] [facility] [place], [address] CHEST PA AND LATERAL Observed: 07/08/2018 Status: F Source: ROYAL 1:47 PM [facility] REPOSITORY [facility] Imaging Services [address] [place] [address] Chest PA and Lateral MR#: [id number] Acct: [id number] Name: DEION CHAU Rep #: [id number] : 1950 M 68 From: Luke Evans MD PCP: Donell Moralez MD Status: PRE SDC Study: Chest PA and Lateral Date of Exam: 07/08/18 Exam# [id number] Ordering Dr: Jackson Fields MD STUDY: X-RAY CHEST REASON FOR EXAM: Male, 68 years old. Fever with sweats, cramps and nausea. TECHNIQUE: Frontal and lateral views of the chest. COMPARISON: April 15, 2018 FINDINGS: There is stable hyperexpansion/hyperinflation. There are granulomatous calcifications unchanged. The nodule noted on the right is no longer seen. There is no demonstrated pleural abnormality. Normal size heart. There are stable calcified mediastinal and hilar lymph nodes. Normal visualized pulmonary arteries. Normal visualized aortic arch and descending thoracic aorta. Normal visualized thoracic spine. Normal visualized ribs, clavicles, and shoulders. There is no demonstrated abnormality of the visualized soft tissue structures of the upper abdomen. RAD/Chest PA and Lateral IMPRESSION: Stable hyperexpansion/hyperinflation with no acute pathology. Electronically Signed: Luke Evans MD at 16:51 EDT , Service support , CC: Jackson Fields MD; Donell Moralez MD Learning Coordinator: Signed CHEST WITHOUT Observed: 06/18/2018 Status: F Source: [place] CONTRAST 1:03 PM [facility] REPOSITORY [facility] Imaging Services [address] [place] [address] Chest without Contrast MR#: [id number] Acct: [id number] Name: DEION CHAU Rep #: [id number] : 1950 M 68 From: Shantanu Gandhi MD PCP: Donell Moralez MD Status: REG CLI Study: Chest without Contrast Date of Exam: 06/18/18 Exam# [id number] Ordering Dr: Timmy Lira DO STUDY: CT CHEST WITHOUT CONTRAST REASON FOR EXAM: Male, 68 years old. Follow-up lung nodule right lower lobe RADIATION DOSAGE (If Supplied By Facility): CTDIvol = ( 11.33 ) mGy, DLP = ( 427.08 ) mGycm TECHNIQUE: Transaxial imaging was performed without the administration of intravenous contrast material. Coronal and sagittal 2-D MPR Individualized dose optimization techniques were used for this CT. COMPARISON: X-ray chest 04/15/2018. CT abdomen and pelvis dictated report 10/28/2017 and 08/06/2015.. FINDINGS: Note: On the prior CT abdomen and pelvis of 10/28/2017 there was described a soft tissue density with questionable internal cavitation in the right posterior costophrenic angle of the lung. On the CT study of 08/14/2015, a 1.4 cm spiculated density was described in the peripheral aspect of the right lower lobe abutting the pleural surface with features favoring scar. Supraclavicular: Normal thyroid, no mass or lymphadenopathy. Body wall soft tissues: No acute process. Osseous structures: Osteopenia, mild scoliosis, mild thoracic spondylosis, slight scoliosis. No acute osseous process. Upper abdomen: There are multiple punctate calcifications within the spleen consistent with old granulomatous disease. There is no acute process of the upper abdomen. Mediastinum: There is a moderate sliding hiatal hernia containing a portion of the gastric fundus. The esophagus is normal. There are small partially calcified lymph nodes of the mediastinum and density calcified lymph nodes of the right hilum consistent with old granulomatous disease. There is no acute lymphadenopathy. Heart: Normal in size without effusion. Three-vessel coronary calcifications. 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 Mild arch atherosclerosis. Pulmonary arteries: Nondilated. Lungs: Centrilobular emphysema. Apical scar bilaterally. Several scattered calcified pulmonary nodules consistent with old granulomatous disease. In the deep sulcus of the right lower lobe posterior basilar segment, there is a pleural-based soft tissue density opacity measuring approximately 1.5 cm craniocaudal, 1.2 cm transverse and 2.1 cm anterior-posterior. At its margin, minimal 1.2 cm focus of honeycombing along the pleural reflection. Immediately medial to this, a small region of groundglass opacities and interlobular septal thickening. Overall, this pattern favors scar rather than a neoplastic process. CT/Chest without Contrast IMPRESSION: The process abutting the pleura in the deep sulcus of the right lower lobe posterior basilar segment has indolent features, favoring scar. Comparison to the prior CT scans of 2017 and 2015 is desired. A similar process was mentioned on each of those scans. It would be helpful to determine if this process is long-term stable. A request has been submitted for the comparative images. If available, an addendum will be issued to this report. There is no other acute cardiopulmonary process. Multiple chronic findings are detailed within the body of the report. 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 Electronically Signed: Shantanu Gandhi, at 14:48 EDT Tel , Service support , CC: Timmy Lira D.O.; Donell Moralez MD Learning Coordinator: Signed PULMONARY VISIT REPORT Observed: 06/11/2018 Status: F Source: [place] 9:06 AM [facility] REPOSITORY [facility] [address] [place] [address] OFFICE VISIT Date of Service: 06/11/18 MR#: [id number] Acct: [id number] Name: DEION CHAU Rep #: [id number] : 1950 Provider: Timmy Lira D.O. Age/Sex: 68/M Location: [facility] [place].[facility] Status: Signed Assessment AND Plan 1. Pulmonary nodule R91.1 Plan The patient had an incidentally noted pulmonary nodule in the right lung base noted on CT abdomen/pelvis while admitted to the hospital. Given the patient's smoking history, recommend obtaining a dedicated chest CT for further evaluation of the aforementioned pulmonary nodule and to assess for any other nodules/abnormalities. Orders Orders: 2. PENA (dyspnea on exertion) R06.09 Plan Given the patient's smoking history subjective exertional dyspnea, recommend obtaining baseline pulmonary function testing. The patient may be a candidate for the initiation of inhaler therapy depending on the outcome of his PFTs. Consideration can also be given to obtaining a 6 minute walk test at some point in the near future. Orders Orders: 3. Tobacco dependency F17.200 Plan I personally spent 5 minutes discussing the deleterious effects of ongoing tobacco use with the patient, including modalities which could be utilized to achieve a smoke-free lifestyle. The patient appears to be pre-contemplative at this time. Recommend follow-up counseling at his next office visit. Orders Orders: Plan Detail Follow Up 6 Weeks (CSM) HPI HPI Comments Details: The patient is a 68-year-old male who presents to the clinic today in follow-up from a hospitalization. It appears that the patient was hospitalized April 14- with bilateral hydronephrosis and bilateral hydroureter. There was incidental note of a pulmonary nodule in the right lung base, noted on CT abdomen/pelvis. The patient was taken to the OR on April 15 for cystoscopy, during which time bilateral ureteral stents were placed. The patient has a smoking history of upwards of 2 packs per day 50 years. He has presently cut back to smoking 0.5 packs per day. Does report baseline dyspnea on exertion, but denies the presence of chest tightness or wheezing. He recently had an YAJAIRA inhibitor related cough, which has improved after discontinuation of the offending medication. His weight has been stable. He worked previously at [employer]. He has lived in [place] his entire life. He has never been evaluated by a plastic extruding machine operator previously. He has never undergone formal pulmonary function testing, nor does he utilize any inhalers at his baseline. The patient did grow up in a smoking household. He denies fevers, chills or night sweats. He reports no hemoptysis. His appetite is good. He denies chest pain, dizziness or lightheadedness. Intake Vital Signs06/11/18 Height 6 ft 1 in 06/11/18 Weight: 191 lb Intake Visit Reasons: Hospital FU Accompanied by: Self Allergies bupropion [From Wellbutrin] Allergy (Verified 04/14/18 11:08) Unknown cephalexin [From Keflex] Allergy (Verified 04/14/18 11:08) Unknown Penicillins Allergy (Verified 04/14/18 11:08) Unknown Medications Aspirin E.C. [Ecotrin] 81 mg PO DAILY@0800 12/03/17 [History Confirmed 04/14/18] Cholecalciferol (Vitamin D3) [Vitamin D3] 1,000 unit PO PRN PRN 12/03/17 [History Confirmed 04/14/18] Pantoprazole Sodium [Protonix] 40 mg PO PRN PRN 12/03/17 [History Confirmed 04/14/18] Finasteride [Proscar] 5 mg PO DAILY 04/14/18 [History Confirmed 04/14/18] Tamsulosin HCl [Flomax] 0.4 mg PO BID 04/14/18 [History Confirmed 04/14/18] Amlodipine [Norvasc] 5 mg PO DAILY #30 tab 04/16/18 [Rx] Duloxetine Hcl [Cymbalta] 30 mg PO DAILY #30 cap 04/16/18 [Rx] Oxycodone HCl/Acetaminophen [Percocet 5/325] 1 - 2 tab PO Q6H PRN PRN 7 Days #40 tab 04/16/18 [Rx] PFSH Medical History Chest pain on exertion (Chronic) History of bladder cancer (Chronic) Encounter for fitting of ureteral stent (Acute) Ureteral stenosis, right (Acute) Ureteral stenosis, left (Acute) Hematuria (Chronic) Depression (Chronic) Bilateral hydronephrosis (Acute) Hydroureter on left (Acute) Hydroureter on right (Acute) Acute kidney injury (Acute) Pulmonary nodule (Chronic) Hypertension (Chronic) GERD (gastroesophageal reflux disease) (Chronic) Peripheral vascular disease (Chronic) Tobacco dependence (Chronic) Enlarged prostate (Chronic) Surgical History History of carpal tunnel surgery of right wrist (Resolved) History of left hip replacement (Resolved) Family History Father Heart disease Mother Diabetes Social History Smoking Status: Current every day smoker second hand exposure: Yes alcohol intake: current alcohol intake frequency: holidays/special occasions only substance use type: does not use Review of Systems Const CONSTITUTIONAL: Positive fatigue; negative anorexia, body ache, chills, daytime sleepiness, fever(s), night sweats, oral thrush, stops breathing during sleep, weight loss, sleeping in chair, weight loss, weight gain, frequent colds, seasonal allergies, other, headache(s) or orthopnea EETM Ear Nose Throat Mouth: Positive hearing normal and sore throat; negative hard of hearing, hoarseness, dry mouth in morning, change in vision, itchy eyes, eye pain, swallowing Difficulty, ear pain, nose bleed, headache(s), mouth pain, nasal congestion, nasal discharge, post nasal drip, sinus pain, sinus pressure or other Cardio Cardiovascular: Negative chest pain, chest pain at rest, chest pain with activity, irregular heart rhythm, edema, shortness of breath when lying down, palpitations, murmur or other Resp Respiratory: Positive as per HPI, shortness of breath shortness of breath: Positive with activity and cough cough: Positive non-productive; negative pain with cough, wheezing, chest congestion, chest tightness, pain on inspiration, inhalers, increase use of rescue inhalers, snoring, apnea or other Gastro Gastrointestional: Negative bloody stools, change in appetite, difficulty swallowing, reflux, hematemesis, melena stool, loose stool, constipation or other Genitourinary: Negative blood in urine, nocturia, pain with urination or other Musc Musculoskeletal: Negative body pain, back pain, neck pain or other Skin/Breast Skin/Breast: Negative dry skin, itching, rash, unusual bruising, breast lump or other Neuro Neurological: Negative restless legs, confusion, weakness or other Psych Psychocological: Positive abnormal sleep pattern; negative anxiety, thoughts of hurting self/others, hopelessness or other Lymph Lymphatic: Negative easy bleeding, easy bruising, swollen lymph nodes or other Exam Const Constitutional: Positive conversant, cooperative, in no acute respiratory distress, well developed, well nourished, good hygiene and smells of smoke Head Head: Positive normocephalic and atraumatic; negative cyanosis of lips/distal nose Eyes Eye: Positive clear conjunctiva; negative nystagmus or scleral abnormality Ears Ear: Positive hearing normal and external ears normal; negative hard of hearing Nose Nose: Positive external nose normal; negative epistaxis Mouth Mouth: Positive oral mucosae normal and posterior oropharynx is adequate; negative no lesions or post nasal drip Mallampati Score: II: Mallampati Score Neck Neck: Positive normal visual inspection and trachea midline; negative lymphadenopathy Chest Wall Chest: Positive symmetric chest movement Normal AP diameter. Resp lung sounds: Positive diminished diminished: Positive bialteral and normal expiratory time; negative wheezes, rhonchi or rales Cardio Cardiac: Positive regular rate, regular rhythm, S1 normal and S2 normal; negative rub, gallop or murmur GI GI: Positive normal bowel sounds Soft without distention Genitourinary: Positive deferred Musc Musculoskeletal: Positive steady gait Skin Pulmonary Skin Exam: Positive intact; negative lesion, ulcers, dermal atrophy or rash Pulses Pulse: Yes Pedal pulses present: Extremities Extremities: No clubbing, No cyanosis, No edema Neuro Neurologic: Yes conversant, Yes no focal neuro deficits, Yes cooperative Lymph Lymphatic: No lymphadenopathy Psych Appearance: Positive grossly normal Mental Status: Positive mental status grossly normal Mood: Positive congruent mood Affect: Positive normal affect Pulmonary Procedure Smoking Cessation Education: Yes education provided, 3-10 minutes and needs reinforcement Coding Level of Care Code Off vis,new,level 4 Diagnoses Pulmonary nodule R91.1 PENA (dyspnea on exertion) R06.09 Tobacco dependency F17.200 06/11/18 0906 <Electronically signed by Timmy Lira DO> Date Timmy Lira DO Cosigner Signature: Date (if applicable) CC: Donell Moralez MD CBC W/DIFF, AUTOMATED Collected: 04/29/2018 Status: F Source: ROYAL 2:00 PM [facility] REPOSITORY TYPE CODE TESTS RESULT OUT OF RANGE REFERENCE UNITS LAB L100.1000 4.4-11.0 K/mm3 Normal WBC 6.8 LAB L100.1200 4.6-6.2 M/mm3 Normal RBC 5.03 LAB L100.1300 13.0-16.5 g/dl Normal HGB 15.4 LAB L100.1400 40-54 % Normal HCT 44.2 LAB L100.1500 80-94 fL Normal MCV 87.9 LAB L100.1600 27.0-32.0 pg Normal MCH 30.6 LAB L100.1700 32-36 g/gl Normal MCHC 34.8 LAB L100.1810 11.6-14.6 % Normal RDW CV 13.6 LAB L100.1820 35.1-43.9 fl Normal RDW SD 43.2 LAB L100.1900 150-450 K/mm3 Normal PLT 264 LAB L100.2000 6.2-12.0 fl Normal MPV 10.7 LAB L100.2100 47-70 % Normal NEUT% 66.1 LAB L100.2200 19-41 % Normal LY% 21.2 LAB L100.2300 0-10 % High MONO% 11.0 LAB L100.2400 0-5 % Normal EO% 1.0 LAB L100.2500 0-1 % Normal BASO% 0.4 LAB L100.2550 0.0-0.9 % Normal IM GRAN % 0.300 Result Comment: IG% - Immature Granulocytes (promyelocytes, myelocytes and metamyelocytes) > 1% indicates that a LEFT SHIFT is Present. LAB L100.2620 2.0-7.7 X10 3/uL Normal Absolute Neut 4.5 LAB L100.2720 0.83-4.51 X10 3/ul Normal Absolute Lymph 1.45 Performed By: #### L100.0100 #### [facility] [address] [place], [address] BASIC METABOLIC Collected: 04/29/2018 Status: F Source: [place] PROFILE (BMP) 2:00 PM [facility] REPOSITORY TYPE CODE TESTS RESULT OUT OF RANGE REFERENCE UNITS LAB L501.0100 74-106 mg/dL Normal GLU 85 Result Comment: Please note revised GLUCOSE reference range effective 2017. LAB L501.1000 7-18 mg/dL High BUN 19 LAB L501.1100 0.70-1.30 mg/dL Normal CREAT,SERUM 1.19 Result Comment: The validity of the calculated GFR AND GFRAA in patients over 70 years has not been determined. Clinical correlation is essential. LAB L501.1110 >60 mL/min Normal EST GFR 65 Result Comment: Non- GFR Calc LAB L501.1115 >60 mL/min Normal EST GFR - AA 78 Result Comment: GFR Calc LAB L501.1300 10-20 RATIO Normal BUN/CRE 16.0 LAB L501.2200 8.5-10.1 mg/dL CA Normal 8.9 LAB L501.5300 136-145 mmol/L NA Normal 140 LAB L501.5600 3.5-5.1 mmol/L K Normal 4.2 LAB L501.5900 98-107 mmol/L CL Normal 106 LAB L501.6100 21.0-32.0 mmol/L Normal CO2 25.0 LAB L501.6200 5-15 Normal GAP 9 Performed By: #### L500.2500 #### [facility] [address] [place], [address] DISCHARGE SUMMARY Observed: 04/17/2018 Status: F Source: [place] 9:24 PM [facility] REPOSITORY [facility] Medical Records Department [address] [facility] [place] [address] Discharge Summary 04/16/18 0910 MR#: [id number] Acct: [id number] Name: DEION CHAU Rep #: [id number] : 1950 68 From: Emmett Hayes DO PCP: Donell Moralez Status: DIS IN Y Location: NV3 [id number] Discharge Date and Diagnosis Date of Admission: 04/14/18 Date of Discharge: 04/16/18 - Primary Discharge Diagnosis Active and Suspected Problems Ureteral stenosis, right (Acute) Ureteral stenosis, left (Acute) Bilateral hydronephrosis (Acute) Hydroureter on left (Acute) Hydroureter on right (Acute) Acute kidney injury (Acute) Encounter for fitting of ureteral stent (Acute) - Secondary Discharge Diagnosis Chronic Problems Chest pain on exertion (Chronic)associated with SOB History of bladder cancer (Chronic) Hematuria (Chronic) Depression (Chronic) Pulmonary nodule (Chronic) - R base, requires follow up Hypertension (Chronic) GERD (gastroesophageal reflux disease) (Chronic) Peripheral vascular disease (Chronic) has had a stent left groin Tobacco dependence (Chronic) Enlarged prostate (Chronic) Hospital Course and Treatment Imaging Results: Laboratory Results - last 24 hr WBC 6.7 RBC 4.53 L Hgb 13.8 Hct 40.2 MCV 88.[address] Jose Juan Fields-urology Operations: - - Cystoscopy with bilateral ureteral stent placement Procedures: None Summary of Care Provided: The patient is a 68 year old M with a past medical history of hypertension, GERD, bladder cancer, BPH, CULLEN (noncompliant with CPAP), hyperlipidemia and tobacco dependence who presented to an outside ER complaining of sudden onset of back pain the previous night. CT scan of the abdomen and pelvis at the outside ER showed bilateral hydronephrosis and bilateral hydroureter. An incidental finding was a pulmonary nodule in the Right base. Creatinine was increased at 2.14. White cell count was 9.2 and the hemoglobin was 16.4 with normal platelets. Electrolytes were unremarkable. Urine showed 6-10 WBCs per high-power field and 11-25 WBCs per high-power field. His urologist, Dr. Jose Juan Fields, was contacted and the patient transferred to [facility]. He told me that he had hematuria ever since his cystoscopy in November 2017 for excision of a bladder CA. He had urinary hesitancy while at the outside ER but, this improved with IV fluids and a post void bladder residual at [facility] was < 100. He denied fevers, shaking chills, dysuria, cough, shortness of breath. Vital signs at presentation to [facility] were temperature 97.7, heart rate 64, blood pressure 163/86, respiratory rate 16 and he is 96-98% saturated on room air. He also revealed to me while doing his H AND P that he has been having chest discomfort when running or exerting himself and that this was associated with SOB. He has no had a stress test for many years. He was take to the OR on 04/15 for cystoscopy. There was no obvious recurrent bladder mass. There was scar tissue at the ureteral orifices which was resected and biopsied and then bilateral ureteral stents were placed. The biopsy report showed focal chronic cystitis with no recurrence of malignancy. On 04/16/2018 he was afebrile and felt well. His urine had a mild pink tinge. He was discharged home and will follow up with Dr. Fields in the office in 1 week. Creatinine at discharge was 1.4. He will follow up with Dr. Moralez in the office in [address] scan of the chest was ordered by Dr. Godoy on [place] without contrast however to better evaluate a lung nodule the CT scan should be done with contrast. A plain x-ray also showed a nodule in the posterior right lower lung field and it measured 1.6 x 1.3 on the plain film. There was an abnormality present in the same area on his CT scan of the abdomen and pelvis done in October 2017. This will need to be followed. He was referred to Dr. Timmy Lira and should have a CT scan with contrast when the creatinine has recovered. Mr. Chau is chronically depressed and has tried many different antidepressants in the past with no significant improvement. After discussing with him what he had tried in the past we agreed on a trial of Cymbalta and he was given a RX for 30 mg capsules. He will take 30 mg daily for 2 weeks and if he has no advers SE's will increase the dose to 60 mg daily which is a more therapeutic dose. Smoking and ETOH cessation counselling was given in the hospital. This note was generated with Runneration software. It may contain incorrect words, spelling, and punctuation that were not noted in checking the note before signing. Discharge Activity: Return to Normal Activity Call your doctor if you observe: Fever of 101 or Higher, Inability to urinate, Shortness of breath, Dizziness, Fainting spells, Swelling in the ankles, Chest pain, Increased palpitations (irregular heartbeat), Calf discomfort, Uncontrolled pain Home Medications: Medications to take at Discharge Aspirin E.C. [Ecotrin] 81 mg PO DAILY@0800 12/03/17 Cholecalciferol (Vitamin D3) [Vitamin D3] 1,000 unit PO PRN PRN 12/03/17 Pantoprazole Sodium [Protonix] 40 mg PO PRN PRN 12/03/17 Finasteride [Proscar] 5 mg PO DAILY 04/14/18 Tamsulosin HCl [Flomax] 0.4 mg PO BID 04/14/18 Amlodipine [Norvasc] 5 mg PO DAILY #30 tab 04/16/18 Duloxetine Hcl [Cymbalta] 30 mg PO DAILY #30 cap 04/16/18 Oxycodone HCl/Acetaminophen [Percocet 5/325] 1 - 2 tab PO Q6H PRN PRN 7 Days #40 tab 04/16/18 Following Prescrptions Were Given to Patient: Oxycodone HCl/Acetaminophen [Percocet 5/325] 1 - 2 tab PO Q6H PRN PRN 7 Days #40 tab PRN Reason: Pain Amlodipine [Norvasc] 5 mg PO DAILY #30 tab Duloxetine Hcl [Cymbalta] 30 mg PO DAILY #30 cap Primary Care Physician: Donell Moralez MD [Primary Care Provider] - Please follow up with your Primary Care Physician in: 2 weeks Please Follow Up With: Jackson Fields MD When: 1 week Please Follow Up With: Timmy Lira DO When: 2 weeks to evaluate the pulmonary nodule Disposition: Home Minutes spent on discharge:: 30 Patient Condition:: Good Medical Necessity - Tobacco Use Smoking Status: Current every day smoker Tobacco Use: Cigarettes Meaningful Use Info Meaningful Use Diagnoses (Choose all that apply): None applicable Code Visit Inpatient E AND M: 10527 Disch Hosp 04/17/182123 <Electronically signed by Emmett Hayes DO> Date Emmett Hayes DO Cosigner Signature (if applicable): Date CC: Swapna Hayes; Jackson Fields MD; Donell Moralez Signed DISCHARGE INSTRUCTION Observed: 04/16/2018 Status: F Source: A[place]A 9:10 AM [facility] REPOSITORY [facility] Medical Records Department [address] [place] [address] Instructions for Home/Discharge Instructions 04/16/18 0856 MR#: [id number] Acct: [id number] Name: DEION CHAU Rep #: [id number] : 1950 68 From: Emmett Hayes DO PCP: Donell Moralez Status: ADM IN - Discharge Diagnoses Current Active Problems: Current Active and Chronic Problems Bilateral hydronephrosis (Acute) Hydroureter on left (Acute) Hydroureter on right (Acute) Acute kidney injury (Acute) Pulmonary nodule (Acute) Hypertension (Chronic) GERD (gastroesophageal reflux disease) (Chronic) Peripheral vascular disease (Chronic) has had a stent left groin Tobacco dependence (Chronic) Enlarged prostate (Chronic) Chest tightness or pressure (Acute) has been intermittent and associated with exertion and SOB You will use the following diet at home:: Cardiac - low salt and low cholesterol Your food should be the consistency of: Regular Your liquids should be the consistency of: Regular/Thin Discharge Activity: Return to Normal Activity Call your doctor if you observe: Fever of 101 or Higher, Inability to urinate, Shortness of breath, Dizziness, Fainting spells, Swelling in the ankles, Chest pain, Increased palpitations (irregular heartbeat), Calf discomfort, Uncontrolled pain Additional Instructions: 1. You should take the Lisinopril until the kidney function returns to baseline. I have started you on a new BP pill called amlodipine and you will take it once a day. 2. I am concerned about the chest pain and shortness of breath you have with exertion. You need to have a stress test to make sure that you do not have coronary artery disease. Dr. Gaines can arrange a stress test for you. 3. You have a nodule in the base of the right lung. It was there in October of 2012 so it is not new. Usually with nodules we like to do the chest CT with contrast and the contrast can affect the kidneys so I want to wait until the kidney function has returned to baseline. I am going to have you follow up with 1 of the lung doctors, Dr. Timmy Lira, to follow up the nodule. 4. I am starting you on a drug called Cymbalta to help with depression. I am starting you on 30 mg daily which is a low dose. If you have no adverse reactions with this medication in the next 2 weeks I would increase the dose to 60 mg dialy which is a more therapeutic dose. 5. I am sending Dr. Gaines a copy of your discharge summary so he knows what went on in the hospital and the changes in the medications. Pending Tests on Discharge: biopsy report from cystoscopy Allergies/Adverse Reactions: Allergies bupropion [From Wellbutrin] Allergy (Verified 04/14/18 11:08) Unknown cephalexin [From Keflex] Allergy (Verified 04/14/18 11:08) Unknown Penicillins Allergy (Verified 04/14/18 11:08) Unknown Medications to take at Discharge Aspirin E.C. [Ecotrin] 81 mg PO DAILY@0800 12/03/17 Cholecalciferol (Vitamin D3) [Vitamin D3] 1,000 unit PO PRN PRN 12/03/17 Pantoprazole Sodium [Protonix] 40 mg PO PRN PRN 12/03/17 Finasteride [Proscar] 5 mg PO DAILY 04/14/18 Tamsulosin HCl [Flomax] 0.4 mg PO BID 04/14/18 Amlodipine [Norvasc] 5 mg PO DAILY #30 tab 04/16/18 Duloxetine Hcl [Cymbalta] 30 mg PO DAILY #30 cap 04/16/18 Oxycodone HCl/Acetaminophen [Percocet 5/325] 1 - 2 tab PO Q6H PRN PRN 7 Days #40 tab 04/16/18 The following prescriptions were given: Oxycodone HCl/Acetaminophen [Percocet 5/325] 1 - 2 tab PO Q6H PRN PRN 7 Days #40 tab PRN Reason: Pain Amlodipine [Norvasc] 5 mg PO DAILY #30 tab Duloxetine Hcl [Cymbalta] 30 mg PO DAILY #30 cap Primary Care Physician: Donell Moralez MD [Primary Care Provider] - Please follow up with your Primary Care Physician in: 2 weeks Please Follow Up With: Jackson Fields MD When: 1 week Please Follow Up With: Timmy Lira DO When: 2 weeks to evaluate the pulmonary nodule Proposed Discharge Date: 04/16/18 04/16/18 0910 <Electronically signed by Emmett Potts Rosendocristina GARDUNO> Date Emmett Hayes CC: Timmy Lira D.O.; Jackson Fields MD; Donell Moralez CBC W/DIFF, AUTOMATED Collected: 04/16/2018 Status: F Source: AUN[place] 5:55 AM [facility] REPOSITORY TYPE CODE TESTS RESULT OUT OF RANGE REFERENCE UNITS LAB L100.1000 4.4-11.0 K/mm3 Normal WBC 6.7 LAB L100.1200 4.6-6.2 M/mm3 Low RBC 4.53 LAB L100.1300 13.0-16.5 g/dl Normal HGB 13.8 LAB L100.1400 40-54 % Normal HCT 40.2 LAB L100.1500 80-94 fL Normal MCV 88.7 LAB L100.1600 27.0-32.0 pg Normal MCH 30.5 LAB L100.1700 32-36 g/gl Normal MCHC 34.3 LAB L100.1810 11.6-14.6 % Normal RDW CV 13.2 LAB L100.1820 35.1-43.9 fl Normal RDW SD 42.5 LAB L100.1900 150-450 K/mm3 Normal PLT 173 LAB L100.2000 6.2-12.0 fl Normal MPV 10.8 LAB L100.2100 47-70 % Normal NEUT% 63.9 LAB L100.2200 19-41 % Normal LY% 23.0 LAB L100.2300 0-10 % High MONO% 11.0 LAB L100.2400 0-5 % Normal EO% 1.6 LAB L100.2500 0-1 % Normal BASO% 0.4 LAB L100.2550 0.0-0.9 % Normal IM GRAN % 0.100 Result Comment: IG% - Immature Granulocytes (promyelocytes, myelocytes and metamyelocytes) > 1% indicates that a LEFT SHIFT is Present. LAB L100.2620 2.0-7.7 X10 3/uL Normal Absolute Neut 4.3 LAB L100.2720 0.83-4.51 X10 3/ul Normal Absolute Lymph 1.55 Performed By: #### L100.0100 #### [facility] [address] [place], [place], [address] BASIC METABOLIC Collected: 04/16/2018 Status: F Source: ROYAL PROFILE (BMP) 5:55 AM [facility] REPOSITORY TYPE CODE TESTS RESULT OUT OF RANGE REFERENCE UNITS LAB L501.0100 74-106 mg/dL Normal GLU 100 Result Comment: Fasting Glucose result from 100 to 125 mg/dL suggests IMPAIRED HOMEOSTASIS per A.D.A. criteria. Please note revised GLUCOSE reference range effective 2017. LAB L501.1000 7-18 mg/dL High BUN 25 LAB L501.1100 0.70-1.30 mg/dL High CREAT,SERUM 1.40 Result Comment: The validity of the calculated GFR AND GFRAA in patients over 70 years has not been determined. Clinical correlation is essential. LAB L501.1110 >60 mL/min Low EST GFR 54 Result Comment: Non- GFR Calc LAB L501.1115 >60 mL/min Normal EST GFR - AA 65 Result Comment: GFR Calc LAB L501.1255 ml/min Normal Estimated CRCL 57.07 LAB L501.1300 10-20 RATIO Normal BUN/CRE 17.9 LAB L501.2200 8.5-10 mg/dL Low .1 CA 8.3 LAB L501.5300 136-14 mmol/L Normal 5 NA 143 LAB L501.5600 3.5-5. mmol/L Normal 1 K 3.9 LAB L501.5900 98-107 mmol/L High CL 111 LAB L501.6100 21.0-3 mmol/L Normal 2.0 CO2 24.0 LAB L501.6200 5-15 Normal GAP 8 Performed By: #### L500.2500 #### [facility] [address] [place], [address] CHEST PA AND LATERAL Observed: 04/15/2018 Status: F Source: ROYAL 6:33 PM [facility] REPOSITORY [facility] Imaging Services [address] [place] [address] Chest PA and Lateral MR#: [id number] Acct: [id number] Name: DEION CHAU Rep #: [id number] : 1950 M 68 From: Lukasz Shoemaker MD PCP: Donell Moralez Status: ADM IN Study: Chest PA and Lateral Date of Exam: 04/15/18 Exam# [id number] Ordering Dr: Emmett Hayes DO STUDY: X-RAY CHEST REASON FOR EXAM: Male, 68 years old. History of right lower lobe pulmonary nodule. TECHNIQUE: PA and lateral views of the chest. COMPARISON: None. FINDINGS: Hyperinflation. Mild increased markings at the lung bases suggestive of scarring. There is a faint 1.6 cm x 1.3 cm nodular density in the lateral aspect of the right lower lobe. There is blunting of the left costophrenic angle. Normal size heart. Calcified right hilar lymph nodes. Normal visualized pulmonary arteries. There is atherosclerotic tortuosity of the aortic arch and descending thoracic aorta. Normal visualized thoracic spine. Normal visualized ribs, clavicles, and shoulders. There is no demonstrated abnormality of the visualized soft tissue structures of the upper abdomen. RAD/Chest PA and Lateral IMPRESSION: Hyperinflation. Mild increased markings at the lung bases suggest scarring. Faint 1.6 cm x 1.3 cm nodule in the lateral aspect of the right lower lobe. Electronically Signed: Lukasz Shoemaker MD at 9:20 EDT Tel [phone], Service support , CC: Swapna Hayes; Donell Moralez Learning Coordinator: Signed OPERATIVE REPORT Observed: 04/15/2018 Status: F Source: ROYAL 4:05 PM [facility] REPOSITORY [facility] Medical Records Department [address] [place] [id number] Operative Report 04/15/18 1601 MR#: [id number] Acct: [id number] Name: DEION CHAU Rep #: [id number] : 1950 68 From: Jackson Fields MD PCP: Donell Moralez Status: ADM IN Y Location: [facility] [id number] Report of Operation Date of Procedure: 04/15/18 Pre-Operative Diagnosis: History of bladder cancer with lamina propria invasion high-grade large tumor involving both orifices in the trigone. Post-Operative Diagnosis: Same. Surgery/Procedure Performed:: Transurethral resection of medium size, resected both the left and right ureteral orifice, cystoscopy bilateral retrograde pyelograms and bilateral stent placement Description of Surgical Findings:: 68-year-old male presented to the hospital with bilateral hydronephrosis history of bladder cancer involving the both left and right ureteral orifice in the trigone that was resected in November, plan taken to the operating room today for cystoscopy biopsies and bilateral stent placements. 68-year-old male taken back to the operating room at the smooth induction of anesthesia he was placed supine on the table, penis and testicles were prepped and draped in usual sterile fashion, went into the bladder with the cystoscope into the 30 and 70 lens gutierrez cystoscopy identified some bullous edema around the orifice of the left ureter that appeared obstructive and identified the right ureteral orifice fairly stenotic from scar tissue. I then used the resectoscope and resected the right ureteral orifice open and then resected the left ureteral orifice open set off this tissue for pathology otherwise I did not see any obvious signs of cancer within the bladder, some irritation in the bladder wall and inflammation of the bladder wall from a prior catheter but no tumors were seen. After resecting the orifices then I placed the Pollack catheter up the right-sided pyelogram place a stent, and then on the left side and placed the Pollack catheter to a retrograde and then place a stent and then drain the bladder patient can follow-up with me. In the office plan is to let the bladder heal with the stents for about 6-8 weeks and I will remove the stent in the office hopefully this will heal and allow the ureters to stay open. We will see what the pathology shows any invasive cancer or just recurrent scar tissue. Type of Anesthesia:: General Drains: stents both side. - Admit VTE Documentation VTE Present on Admission: No VTE Mechan Device Prophylaxis: SCD's VTE Pharm Prophylaxis ordered?: No Reason prophylaxis not ordered:: Treatment Not Indicated 04/15/18 1605 <Electronically signed by Jackson Fields MD> Date Jackson Fields MD CC: Jackson Fields MD; Donell Moralez Signed BLADDER TUR Observed: 04/15/2018 Status: F Source: AUNDREA 12:45 PM [facility] REPOSITORY Patient: DEION CHAU : 1950 (68/M) Acct Num: [id number] Phys: Swapna Hayes Unit Num: [id number] Loc: MS3 LO183-4 Specimen: [id number] Received: 04/16/1838 Spec Type: TURB TISSUES TISSUES: Urinary bladder, NOS COMMENT Reference is made to the patient s previous urinary bladder, TUR from 12/08/17 ( S18-004) in which 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 GROSS DESCRIPTION Received in fixative is one container labeled with the patient's name and designated bladder tissue. The specimen consists of multiple irregular fragments of light magdaleno soft tissue that in aggregate measure 1.5 x 1 x 0.3 cm. The specimen is totally submitted in one cassette. / SJ:diana 04/16/18 TC:3 CPT: 71475 HEADER OPERATION: Cysto, transurethral resection bladder, Olympus stent insertion PRE-OP DIAGNOSIS: History of bladder cancer and hydronephrosis TISSUE SUBMITTED: Bladder tissue MICROSCOPIC DESCRIPTION Slides are reviewed. MICROSCOPIC DIAGNOSIS Urinary bladder, transurethral resection: Focal chronic cystitis. No evidence of malignancy. AM:diana 04/17/18 Signed Crescencio aMrks 04/17/18 <signature on file> Performed By: #### PBLB #### [facility] [address] [place], [address] CBC W/DIFF, AUTOMATED Collected: 04/15/2018 Status: F Source: AUNDREA 5:30 AM [facility] REPOSITORY TYPE CODE TESTS RESULT OUT OF RANGE REFERENCE UNITS LAB L100.1000 4.4-11.0 K/mm3 Normal WBC 5.6 LAB L100.1200 4.6-6.2 M/mm3 Low RBC 4.48 LAB L100.1300 13.0-16.5 g/dl Normal HGB 13.5 LAB L100.1400 40-54 % Normal HCT 40.3 LAB L100.1500 80-94 fL Normal MCV 90.0 LAB L100.1600 27.0-32.0 pg Normal MCH 30.1 LAB L100.1700 32-36 g/gl Normal MCHC 33.5 LAB L100.1810 11.6-14.6 % Normal RDW CV 13.6 LAB L100.1820 35.1-43.9 fl High RDW SD 44.7 LAB L100.1900 150-450 K/mm3 Normal PLT 173 LAB L100.2000 6.2-12.0 fl Normal MPV 10.5 LAB L100.2100 47-70 % Normal NEUT% 61.8 LAB L100.2200 19-41 % Normal LY% 26.4 LAB L100.2300 0-10 % Normal MONO% 9.6 LAB L100.2400 0-5 % Normal EO% 1.8 LAB L100.2500 0-1 % Normal BASO% 0.4 LAB L100.2550 0.0-0.9 % Normal IM GRAN % 0.000 Result Comment: IG% - Immature Granulocytes (promyelocytes, myelocytes and metamyelocytes) > 1% indicates that a LEFT SHIFT is Present. LAB L100.2620 2.0-7.7 X10 3/uL Normal Absolute Neut 3.5 LAB L100.2720 0.83-4.51 X10 3/ul Normal Absolute Lymph 1.48 Performed By: #### L100.0100 #### [facility] [address] [place], [address] COMPREHENSIVE METABOLIC Collected: 04/15/2018 Status: F Source: [place] [facility] 5:30 AM [facility] REPOSITORY TYPE CODE TESTS RESULT OUT OF RANGE REFERENCE UNITS LAB L501.0100 74-106 mg/dL Normal GLU 90 Result Comment: Please note revised GLUCOSE reference range effective 2017. LAB L501.1000 7-18 mg/dL High BUN 33 LAB L501.1100 0.70-1.30 mg/dL High CREAT,SERUM 1.79 Result Comment: The validity of the calculated GFR AND GFRAA in patients over 70 years has not been determined. Clinical correlation is essential. LAB L501.1110 >60 mL/min Low EST GFR 40 Result Comment: Non- GFR Calc LAB L501.1115 >60 mL/min Low EST GFR - AA 49 Result Comment: GFR Calc LAB L501.1255 ml/min Normal Estimated CRCL 44.64 LAB L501.1300 10-20 RATIO Normal BUN/CRE 18.4 LAB L501.1500 6.4-8. g/dL Low 2 T PROT 6.2 LAB L501.1800 3.2-5. g/dL Low 0 ALB 2.8 LAB L501.1950 2.2-4. g/dL Normal 2 GLOB 3.4 LAB L501.2000 0.9-2. RATIO Low 4 A/G 0.8 LAB L501.2200 8.5-10 mg/dL Low .1 CA 8.4 LAB L501.4100 15-37 U/L Low AST 13 LAB L501.4305 45-117 U/L Normal ALK P 59 LAB L501.4405 16-61 U/L Low ALT 11 LAB L501.4600 0.20-1 mg/dL Normal .00 T BILI 0.50 LAB L501.5300 136-14 mmol/L Normal 5 NA 144 LAB L501.5600 3.5-5. mmol/L Normal 1 K 4.5 LAB L501.5900 98-107 mmol/L High CL 110 LAB L501.6100 21.0-3 mmol/L Normal 2.0 CO2 26.0 LAB L501.6200 5-15 Normal GAP 8 Performed By: #### L500.4050, L500.4100, L501.2300, L501.5200 #### [facility] [address] [place], [place], [id number] LIPID PROFILE Collected: 04/15/2018 Status: F Source: [place] 5:30 AM [facility] [facility] REPOSIT[facility] TYPE CODE TESTS RESULT OUT OF RANGE REFERENCE UNITS LAB L501.4900 200 mg/dL High CHOL 211 Result Comment: <200 mg/dL Desirable 200-240 mg/dL Borderline >240 mg/dL High Risk LAB L501.5000 mg/dL Normal TRIG 159 Result Comment: The drugs N-Acetylcysteine and Metamizole may falsely depress this assay. Serum Triglycerides Reference Interval Normal <150 mg/dL Borderline high 150 - 199 mg/dL High 200 - 499 mg/dL Very High > or = 500 mg/dL LAB L501.6400 mg/dL Low HDL 30 Result Comment: The drugs N-Acetylcysteine and Metamizole may falsely depress this assay. Reference Range HDL <40 mg/dL Low HDL Cholesterol HDL >or= 60 mg/dL High HDL Cholesterol LAB L501.6500 0-130 mg/dL High LDL 149 LAB L501.6600 5-40 mg/dL Normal VLDL 32 Performed By: #### L500.4050, L500.4100, L501.2300, L501.5200 #### [facility] [address] [place], [place], [id number] PHOSPHORUS Collected: 04/15/2018 Status: F Source: ROYAL 5:30 AM [facility] REPOSITORY TYPE CODE TESTS RESULT OUT OF RANGE REFERENCE UNITS LAB L501.2300 2.5-4.9 mg/dL Normal PHOS 3.4 Performed By: #### L500.4050, L500.4100, L501.2300, L501.5200 #### [facility] [address] [place], [place], [address] MAGNESIUM Collected: 04/15/2018 Status: F Source: ROYAL 5:30 AM [facility] REPOSITORY TYPE CODE TESTS RESULT OUT OF RANGE REFERENCE UNITS LAB L501.5200 1.6-2.6 mg/dL Normal MG 1.6 Performed By: #### L500.4050, L500.4100, L501.2300, L501.5200 #### [facility] [address] [place], [place], [id number] CONSULTATION Observed: 04/15/2018 Status: F Source: ROYAL 3:23 AM [facility] REPOSITORY [facility] Medical Records Department [address] [place] [address] Consultation 04/15/188 MR#: [id number] Acct: [id number] Name: DEION CHAU Rep #: [id number] : 1950 68 From: Jackson Fields MD PCP: Donell Moralez Status: ADM IN Y [id number] Reason for Consult Date of Consultation: 04/15/18 Reason for Consultation: History of bladder cancer status post resection of a very large tumor involving the trigone in the bladder. Presented with bilateral hydronephrosis thickened bladder wall on CAT scan History of Present Illness: The patient is a 68 year old male who is a heavy smoker was found to have a very large bladder tumor that occupied is bladder trigone and was overlying both the ureteral orifices, I resected both the tumors I did identify the left and right ureteral orifice did not put a stent in the risk of contaminant contaminating the upper tracts, after surgeries having difficulty with urination so put him on an alpha-carol medication for his prostate and he been urinating better since then. He then presented with acute flank pain to the emergency room outlying hospital transfer here for further care and was found to have bilateral hydronephrosis and a horseshoe kidney also has a 12 mm nodule in the lung base which is new, no prior imaging to document stability. He does report having gross hematuria. CT scan was reviewed personally a lot of scar scatter artifact from the hip replacement difficult to tell if there is any recurrent tumors in the bladder given the scatter artifact from the hip but he does have bilateral hydronephrosis horseshoe kidney with hydronephrosis. His creatinine is elevated. Past Medical History Past Medical History (Chronic Problems): Chronic Problems Hypertension (Chronic) GERD (gastroesophageal reflux disease) (Chronic) Peripheral vascular disease (Chronic) has had a stent left groin Tobacco dependence (Chronic) Enlarged prostate (Chronic) Allergies bupropion [From Wellbutrin] Allergy (Verified 04/14/18 11:08) Unknown cephalexin [From Keflex] Allergy (Verified 04/14/18 11:08) Unknown Penicillins Allergy (Verified 04/14/18 11:08) Unknown Home Medications: Ambulatory Orders Medication Instructions Recorded Aspirin E.C. [Ecotrin] 81 mg PO DAILY@0800 12/03/17 Cholecalciferol (Vitamin D3) 1,000 unit PO PRN PRN 12/03/17 [Vitamin D3] Lisinopril [Prinivil] 10 mg PO DAILY 12/03/17 Surgical History: total hip arthroplasty - Left hip, - - Resection of a bladder tumor by Dr. Jose Juan Fields in November 2017, repair of laceration to the right wrist after he put his hand through a window. Stent LLE Psychiatric History: No pertinent psych hx Lives: Alone Smoking Status: Current every day smoker Tobacco Use: Cigarettes Alcohol: Occasional Drugs: None - *Family History Paternal History Items: Heart Disease, - - Peripheral vascular disease Review of Systems Constitutional: Reports: Anorexia, Chills HEENT: Denies: Head Aches, Sinus Congestion, Sinus Drainage Cardiovascular: Denies: Chest Pain, Palpitations Respiratory: Reports: Cough. Denies: Shortness of breath at rest, Sputum production Gastrointestinal: Denies: Abdominal Pain, Nausea, Vomiting Genitourinary: Reports: Hematuria - Systolic history are not adjusted to me to be fine Musculoskeletal: Denies: Joint Pain, Joint Tenderness Skin: Denies: Rash, Wounds Neurological: Denies: Numbness, Tingling, Focal weakness Psychiatric: Denies: Anxiety, Depression, Homicidal Ideations, Suicidal Ideations Hematologic/ Lymphatic: Denies: Easy Bruising, Easy Bleeding Physical Exam - Physical Exam Vital Signs Temp 98.5 F 04/15/18 02:20 Pulse 61 04/15/18 02:20 Resp 16 04/15/18 02:20 BP 137/66 H 04/15/18 02:20 Pulse Ox 95 04/15/18 02:20 Intake AND Output Intake Total 1184 / 1184 Output Total 1660 / 1660 General: Alert, Oriented x3 HEENT: Atraumatic, PERRLA Oral: Moist Mucosa Neck: Supple Lungs: Normal air movement Cardiovascular: Regular rate Abdomen: Soft Rectal: Exam deferred Assessment/Plan Active and Suspected Problems Bilateral hydronephrosis (Acute) Hydroureter on left (Acute) Hydroureter on right (Acute) Acute kidney injury (Acute) Pulmonary nodule (Acute) Chest tightness or pressure (Acute) has been intermittent and associated with exertion and SOB 68-year-old male history of bladder cancer bilateral hydronephrosis etiology of the hydronephrosis are as follows this is explained to the patient could be scar tissue from her second is large bladder cancer that the case with the re-resect scar tissue and placed stents on both sides allowed to heal, hydronephrosis could also be from progression of cancer could be a sign of recurrent bladder cancer. He does have a 12 mm nodule in the lung bases concerning recommend to get further imaging with a CT scan of the chest to further evaluate the chest. Planted taken to surgery tomorrow for a TURBT and bilateral stent placement. 04/15/18 0323 <Electronically signed by Jackson Fields MD> Date Jackson Fields MD Cosigner Signature (if applicable): Date CC: Jackson Fields MD; Donell Moralez Signed HISTORY AND PHYSICAL Observed: 2018 Status: F Source: ROYAL EXAM 2:06 PM [facility] REPOSITORY [facility] Medical Records Department [address] [place] [id number] History and Physical 04/14/18 1343 MR#: [id number] Acct: [id number] Name: DEION CHAU Rep #: [id number] : 1950 68 From: Emmett Hayes DO PCP: Donell Moralez Status: DEP ER Y Location: [facility] [id number] Problem List (1) Bilateral hydronephrosis Status: Acute (2) Hydroureter on left Status: Acute (3) Hydroureter on right Status: Acute (4) Acute kidney injury Status: Acute (5) Pulmonary nodule Status: Acute (6) Hypertension Status: Chronic (7) GERD (gastroesophageal reflux disease) Status: Chronic (8) Peripheral vascular disease Status: Chronic Comment: has had a stent left groin (9) Tobacco dependence Status: Chronic (10) Enlarged prostate Status: Chronic (11) Chest tightness or pressure Status: Acute Comment: has been intermittent and associated with exertion and SOB History of Present Illness Date of Admission: 04/14/18 Chief Complaint: Sent to [facility] from an outside ED with BL hydronephrosis/back pain The patient is a 68 year old M with a past medical history of hypertension, GERD, bladder cancer, BPH, CULLEN (noncompliant with CPAP), lipidemia and tobacco dependence who presented to an outside ER complaining of sudden onset of back pain night. CT scan of the abdomen and pelvis at the outside ER showed bilateral hydronephrosis and bilateral hydroureter. Creatinine was increased at 2.14. White cell count was 9.2 and the hemoglobin was 16.4 with normal platelets. Electrolytes were unremarkable. Urine showed 6-10 WBCs per high-power field and 11-25 WBCs per high-power field. His urologist, Dr. Jose Juan Fields, was contacted and patient transferred to [facility]. He tells me that he has had hematuria since his cystoscopy in November 2007. He had urinary hesitancy while at the outside ER but, this has improved since IV fluids. He denies fevers, shaking chills, dysuria, cough, shortness of breath. Current vital signs are temperature 97.7, heart rate 64, blood pressure 163/86, respiratory rate 16 and he is 96-98% saturated on room air. He also tells me that he has had chest pain in the past and it comes on with exertion and is relieved with stress. It is associated with SOB but not diaphoresis or nausea. He has never had a stress test. There is a hx of CAD on his father's side of the family. Past Medical History Past Medical History (Chronic Problems): Chronic Problems Hypertension (Chronic) GERD (gastroesophageal reflux disease) (Chronic) Peripheral vascular disease (Chronic) has had a stent left groin Tobacco dependence (Chronic) Enlarged prostate (Chronic) Allergies bupropion [From Wellbutrin] Allergy (Verified 04/14/18 11:08) Unknown cephalexin [From Keflex] Allergy (Verified 04/14/18 11:08) Unknown Penicillins Allergy (Verified 04/14/18 11:08) Unknown Home Medications: Ambulatory Orders Medication Instructions Recorded Aspirin E.C. [Ecotrin] 81 mg PO DAILY@0800 12/03/17 Cholecalciferol (Vitamin D3) 1,000 unit PO PRN PRN 12/03/17 [Vitamin D3] Lisinopril [Prinivil] 10 mg PO DAILY 12/03/17 Surgical History: total hip arthroplasty - Left hip, - - Resection of a bladder tumor by Dr. Jose Juan Fields in November 2017, repair of laceration to the right wrist after he put his hand through a window. Stent LLE Psychiatric History: No pertinent psych hx Lives: Alone Smoking Status: Current every day smoker Tobacco Use: Cigarettes Alcohol: Occasional Drugs: None - *Family History Paternal History Items: Heart Disease, - - Peripheral vascular disease Review of Systems Constitutional: Denies: Anorexia, Chills, Fever, Weakness Eyes: Denies: Vision Change HEENT: Denies: Head Aches, Sinus Congestion, Sinus Drainage Cardiovascular: Reports: Chest Tightness - associated with exertion and SOB. Denies: Edema, Light Headedness, Orthopnea, Palpitations, Syncope Respiratory: Reports: Shortness of breath upon exertion. Denies: Hemoptysis, Sputum production Gastrointestinal: Reports: Abdominal Pain, Nausea. Denies: Vomiting Genitourinary: Reports: Hematuria, Hesitancy, Retention. Denies: Dysuria Musculoskeletal: Reports: Back Pain. Denies: Joint Pain, Joint Tenderness Skin: Denies: Rash, Wounds Psychiatric: Denies: Anxiety, Depression, Homicidal Ideations, Suicidal Ideations Endocrine: Denies: Change in Body Habitus Hematologic/ Lymphatic: Denies: Hx of blood clot VTE Information - Inpt Only VTE Present on Admission: No VTE Mechan Device Prophylaxis: SCD's, Knee High MARCIE Hose VTE Pharm Prophylaxis ordered?: No Reason prophylaxis not ordered:: Treatment Not Indicated - he has hematuria and is going to surgery in the next 24 hours Patient Problems: Active and Suspected Problems Bilateral hydronephrosis (Acute) Hydroureter on left (Acute) Hydroureter on right (Acute) Acute kidney injury (Acute) Pulmonary nodule (Acute) Chest tightness or pressure (Acute) has been intermittent and associated with exertion and SOB - Physical Exam General: Alert, Oriented x3, Cooperative, No apparent distress, Well developed, Well nourished HEENT: Atraumatic, PERRLA, EOMI, Normocephalic Oral: No Gingival or Mucosal Lesions/ Ulcerations, Dry Mucosa Neck: Supple, No JVD, Negative Carotid Bruits, - - Brisk carotid upstroke with good pulse volume bilaterally Lungs: Normal air movement, Rales - few coarse crackles in the right base but optherwise normal, - - rare wheeze, symmetric chest expansion, no conversational dyspnea, not tachypneic, no accessory muscle use. Cardiovascular: Regular rate, Regular Rhythm, Normal S1, Normal S2, No murmurs, No Ectopic Activity, No rub noted, No Gallop Abdomen: Bowel Sounds Present, Soft, Non Tender, Non-Distended, - - The bladder does not feel distended at the time of my exam. No guarding with palpation. No masses appreciated. Extremities: No clubbing, No cyanosis, No Calf Tenderness, Diminished Peripheral Pulses, Edema - small amount of edema in the ankles Skin: No rashes, No breakdown Musculoskeletal: No Muscle Wasting Neurological: Cranial nerves II-XII grossly intact, Neuro grossly intact Psych/Mental Status: Normal Affect, Appropriate Vital Signs Temp Pulse Resp BP Pulse Ox 97.7 F L 64 16 163/86 H 96 04/14/18 12:34 04/14/18 12:34 04/14/18 12:34 04/14/18 12:34 04/14/18 12:34 Oxygen Delivery Method Room Air Weight: 193 lb 12.8 oz Body Mass Index (BMI) 25.5 Assessment/Plan Active and Suspected Problems Bilateral hydronephrosis (Acute) Hydroureter on left (Acute) Hydroureter on right (Acute) Acute kidney injury (Acute) Pulmonary nodule (Acute) Chest tightness or pressure (Acute) has been intermittent and associated with exertion and SOB Impressions 1. Bilateral hydronephrosis and hydroureter with a history of bladder [place] [address] [place] 2. History of bladder cancer 3. Hypertension 4. Acute kidney injury likely secondary to urinary tract obstruction 5. GERD 6. Ongoing tobacco dependence 7. Hematuria 8. Pulmonary nodule right base reported on CT scan of the abdomen and pelvis 9. CP with exertion and associated with SOB - has never had a stress test. Discussed with Dr. Fields-will make n.p.o. after midnight for planned cystoscopy in the a.m. SCDs and MARCIE hose for DVT prophylaxis and hold off on pharmacologic prophylaxis due to hematuria and planned surgery in less than 24 hours Hydrate Check a post void residual Protonix for GI prophylaxis Pain medication ordered Recheck lab in the a.m. No Buitrago at this time Hydralazine as needed for systolic greater than 150 or diastolic greater than 85 EKG now Smoking cessation counseling given NicoDerm patch ordered Continue aspirin and DC Lisinopril due to SAWYER Code Visit Inpatient Panfilo AND M: 27084 Init Hosp L3 04/14/18 1406 <Electronically signed by Emmett Hayes DO> Date Emmett Katlyn Hayes DO Cosigner Signature: Date (if applicable) CC: Swapna Hayes; Jackson Fields MD; Donell Moralez Signed EMERGENCY DEPARTMENT Observed: 2018 Status: F Source: ROYAL SUMMARY 12:32 PM [facility] REPOSITORY [facility] Medical Records Department [address] [place] [address] Emergency Department Summary 04/14/18 1147 MR#: [id number] Acct: [id number] Name: DEION CHAU Rep #: [id number] : 1950 68 From: Eleanor Uribe MD PCP: Donell Moralez Status: ADM EDWIN - ER Visit Summary Date of Service: 04/14/18 Chief Complaint: Right flank pain History of Present Illness: The patient is a 68 M presenting from [place] emergency department for right-sided flank pain. Patient had a CT scan at [place] which showed moderate bilateral hydronephrosis, hydroureter and perinephric fat stranding. These findings were discussed with Dr. Fields prior to his arrival who felt he will need stent placement. Patient has history of bladder cancer with tumor removal in November. His creatinine is elevated 2.14. His urine shows 6-10 white blood cells. Blood and urine cultures were sent at [place]. He was given Cipro, Dilaudid, Toradol prior to arrival. On arrival patient's pain is controlled. Physical Examination: Vitals are stable. Patient is afebrile. Alert no acute distress. HEENT exam is unremarkable. Neck is supple. Lungs are clear and equal bilaterally. Heart is regular rate and rhythm. Abdomen is soft nontender nondistended. Back: nontender Extremities are unremarkable. Skin is warm and dry. No focal neurologic deficit. Remainder of exam is unremarkable. Emergency Department Course and Treatment: Patient's pain is controlled. Discussed with Dr Fields and the hospitalist for admission. Disposition: Admission Impression: Bilateral hydronephrosis, SAWYER, UTI This note was generated with [employer] dictation software. It may contain incorrect words, spelling, and punctuation that were not noted in review of the chart prior to signing ED Disposition - Plan for ED Patient: Disposition: Acute Care Hospital [facility] Chief Complaint: Flank Pain What to do if you have Problems For any increased pain, shortness of breath, bleeding, nausea or vomiting, chest pain, or any unexpected problems, contact your Primary Care Provider. Call [facility] ([phone]) or report to the closest Emergency Room. Call 911 if necessary. 04/14/18 1232 <Electronically signed by Eleanor Uribe MD> Date Eleanor Uribe MD Cosigner Signature (If Indicated): Date CC: Donell Moralez LACTIC ACID Collected: 2018 Status: F Source: [employer] 9:36 AM SYSTEM REPOSITORY TYPE CODE TESTS RESULT OUT OF RANGE REFERENCE UNITS LAB LACT3 0.4-2.0 mmol/L Normal Lactic Acid 0.7 Performed By: #### LACT3 #### [facility] [address] [place] [address] Observed: 2018 Status: F Source: [employer] CULTURE BLOOD 9:35 AM SYSTEM REPOSITORY Order Comment: Specimen Source Comment:Blood CULTURE BLOOD --> Status: F No growth at 5 days. Performed By: #### C/BLD #### [facility] [address] [place] [id number] Observed: 2018 Status: F Source: [employer] [facility] CULTURE BLOOD (TWO) 9:35 AM SYSTEM REPOSITORY Order Comment: Specimen Source Comment:Blood CULTURE BLOOD (Two) --> Status: F No growth at 5 days. Performed By: #### C/BLT #### [facility] [address] [place] [address] [address] ABDOMEN/PELVIS W/O Observed: 2018 Status: F Source: [employer] [facility] CONTRAST 8:25 AM SYSTEM REPOSITORY Patient Name: DEION CHAU CT Exam Date/Time 2018 08:14:[address] Abdomen/Pelvis (No PO, No IV) Ordering Physician MD MUNOZ JENNIFER Accession Number [id number] CPT4 Codes 57531 (CT Abdomen/Pelvis (No PO, No IV)) Reason For Exam FLANK PAIN, STONE DISEASE SUSPECTED Report CT ABDOMEN AND PELVIS WITHOUT CONTRAST CLINICAL INDICATION: Flank pain Serial axial CT images of the abdomen and pelvis were acquired without intravenous contrast. Oral contrast was not given for this study. 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 There is moderate bilateral hydronephrosis and hydroureter with extensive perinephric fat stranding. No renal or ureteral stones are seen. There is diffuse thickening of the urinary bladder. The prostate is borderline enlarged. The liver, gallbladder, pancreas, and adrenal glands are grossly unremarkable in appearance on this noncontrast examination. Calcified granulomas are noted within the spleen. No retroperitoneal or pelvic lymphadenopathy is seen. The abdominal aorta is ectatic. Diffuse atherosclerotic calcification is present. The large and small bowel is unremarkable in appearance, without evidence of thickening or dilatation. The appendix appears normal. No free fluid is seen within the abdomen or pelvis. There is no free air under the diaphragm. There is a moderate-sized hiatal hernia. Within the visualized portion of the lung bases, emphysematous changes are noted. There is a nodular density at the right lung base on axial image 9 of 147 measuring 12 mm in diameter. No lytic or blastic lesions are seen on the bone windows. IMPRESSION: Moderate bilateral hydronephrosis, hydroureter, and perinephric fat stranding. No renal or ureteral stones are identified. 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 Diffuse thickening of the urinary bladder wall. Mildly enlarged prostate. Moderate-sized hiatal hernia. Nodular density at the right lung base measures up to 12 mm in greatest diameter. Follow-up CT of the chest is recommended. There are no prior examinations available for comparison. Report Dictated on Final Dictating Physician: LIZBET TAVERAS Signed Date and Time: 2018 8:34 am Signed by: LIZBET TAVERAS Transcribed Date and Time: 2018 8:35 URINALYSIS,MACRO Collected: 2018 Status: F Source: [facility] Emefcy 7:52 AM SYSTEM REPOSITORY TYPE CODE TESTS RESULT OUT OF REFERENCE UNITS RANGE LAB APPUR Clear NA Appearance SL CL[facility]DY LAB COLUR Lt. Yellow NA Color [facility] LAB USG 1.005-1.030 NA Specific Normal [place],Urine 1.020 LAB UPH 5.0-8.0 NA pH,Urine Normal 5.5 LAB ULUK Negative NA Leukocytes TRACE LAB UNIT Negative NA Nitrites NEGATIVE LAB UPRO Negative mg/dL Total Protein,Urine 2 + LAB UGLU Negative mg/dL Glucose,Urine NEGATIVE LAB UKET Negative mg/dL Ketone,Urine NEGATIVE LAB UURO 0-1 mg/dL Urobilinogen 0.2 LAB UBIL Negative NA Bilirubin,Ur NEGATIVE LAB UBLD Negative {RBC}/uL Occult Blood,Ur 3 + Performed By: #### UAMAC, UAMIC #### [facility] [address] [place] [address] URINALYSIS,MICROSCOPIC Collected: Status: F Source: [facility] 2018 7:52 AM [facility] REPOSITORY TYPE CODE TESTS RESULT OUT OF REFERENCE UNITS RANGE LAB WBCU 0-5 /[HPF] 6 WBC,Urine - 10 LAB RBCU 0-2 /[HPF] 11 RBC,Urine - 25 LAB EPIU 3-5 /[HPF] 3 Epithelial Cells - 5 LAB GARFIELD Negative NA Bacteria Moderate (6-50) LAB MUC Negative NA Mucous Threads Moderate LAB AMUR Negative NA Amorphous Urates Moderate (6-50) Performed By: #### UAMAC, UAMIC #### [facility] [employer] [facility] [address] [place] [address] HEMOGRAM W/ AUTODIFF Collected: 2018 Status: F Source: [employer] 7:39 AM SYSTEM REPOSITORY TYPE CODE TESTS RESULT OUT OF REFERENCE UNITS RANGE LAB IWBC 3.6-10.7 10*3/uL WBC Normal 9.2 LAB RBC 4.40-5.90 10*6/uL RBC Normal 5.43 LAB HGB 13.0-18.0 g/dL Hemoglobin Normal 16.4 LAB HCT 40.0-52.0 % Hematocrit Normal 48.8 LAB MCV 80.0-98.0 fL MCV Normal 89.9 LAB MCH 26.0-34.0 pg MCH Normal 30.3 LAB MCHC 32.0-36.0 % MCHC Normal 33.7 LAB RDW 11.5-14.5 % RDW Normal 14.4 LAB PLT 140-440 10*3/uL Platelet Normal 217 LAB MPV 7.4-10.4 fL MPV Normal 8.6 LAB GRAN% 40.0-80.0 % Granulocytes Normal 74.4 LAB LYMP% 20.0-40.0 % Low Lymphocytes 14.9 LAB MONO% 2.0-10.0 % Monocytes Normal 8.4 LAB EOS% 1.0-6.0 % Eosinophils Normal 1.2 LAB BAS% 0.0-2.0 % Basophils Normal 1.1 LAB ANC 1.8-7.0 10*3/uL Abs Normal Neutrophile Cnt 6.8 LAB ALC 1.0-4.3 10*3/uL Abs Lymph Cnt Normal 1.4 LAB AMC 0.0-0.8 10*3/uL Abs Monocyte Normal Cnt 0.8 LAB AEC 0.0-0.5 10*3/uL Abs Eosin Cnt Normal 0.1 LAB ABC 0.0-0.2 10*3/uL Abs Baso Cnt Normal 0.1 Performed By: #### HEMDF, BMP3 #### [facility] [address] [place] [address] BASIC METABOLIC PANEL Collected: 2018 Status: F Source: [employer] 7:39 AM SYSTEM REPOSITORY TYPE CODE TESTS RESULT OUT OF RANGE REFERENCE UNITS LAB NA3 135-145 mmol/L Sodium Normal 141 LAB K3 3.5-5.1 mmol/L Normal Potassium 4.6 LAB CL3 98-109 mmol/L Chloride Normal 108 LAB CO23 21-32 mmol/L Carbon Normal Dioxide 23 LAB ANIN3 NA Anion Gap 10 LAB GLUC3 70-100 mg/dL High Glucose 102 LAB BUN3 7-25 mg/dL High Urea Nitrogen 31 LAB CRET3 0.55-1.40 mg/dL High Creatinine 2.14 LAB GF3BR >60 mL/min eGFR 37.4 LAB GF3WR >60 mL/min eGFR OTHER 30.9 Result Comment: Source- MDRD equation with creatinine calibration to IDMS(NKDEP) eGFR not recommended for drug dose adjustment LAB CA3 8.2-10.1 mg/dL Normal Calcium 9.8 Performed By: #### HEMDF, BMP3 #### [facility] [address] [place] [address] Observed: 2018 Status: F Source: [employer] CULTURE URINE 7:39 AM SYSTEM REPOSITORY Order Comment: Specimen Source Comment:Urine, clean catch CULTURE URINE --> Status: F Normal urogenital melvina present. Performed By: #### C/UR #### [facility] [address] [place] [address] BASIC METABOLIC Collected: 01/29/2018 Status: F Source: AUNDREA PROFILE (BMP) 3:31 PM [facility] REPOSITORY TYPE CODE TESTS RESULT OUT OF RANGE REFERENCE UNITS LAB L501.0100 74-106 mg/dL Low GLU 73 Result Comment: Please note revised GLUCOSE reference range effective 2017. LAB L501.1000 7-18 mg/dL High BUN 23 LAB L501.1100 0.70-1.30 mg/dL Normal CREAT,SERUM 1.19 Result Comment: The validity of the calculated GFR AND GFRAA in patients over 70 years has not been determined. Clinical correlation is essential. LAB L501.1110 >60 mL/min Normal EST GFR 65 Result Comment: Non- GFR Calc LAB L501.1115 >60 mL/min Normal EST GFR - AA 78 Result Comment: GFR Calc LAB L501.1300 10-20 RATIO Normal BUN/CRE 19.3 LAB L501.2200 8.5-10.1 mg/dL CA Normal 9.1 LAB L501.5300 136-145 mmol/L NA Normal 140 LAB L501.5600 3.5-5.1 mmol/L K Normal 4.1 LAB L501.5900 98-107 mmol/L CL Normal 106 LAB L501.6100 21.0-32.0 mmol/L Normal CO2 25.0 LAB L501.6200 5-15 Normal GAP 9 Performed By: #### L500.2500 #### [facility] [address] [place], [address] ALLERGIES ALLERGIES DATE TYPE / CODE NAME / CODE REACTION SEVERITY SOURCE 08/04/2018 Drug Penicillins/ Unknown Unknown [facility] Allergy/4160 [id number](R Hospital 41454(SNOMED XNORM) Repository CT) 08/04/2018 Drug cephalexin/F Unknown Unknown [facility] Allergy/4160 [id number](RX Hospital 06577(SNOMED NORM) Repository CT) 08/04/2018 Drug bupropion/F0 Unknown Unknown [facility] Allergy/4160 [id number]([facility] 49944(SNOMED ORM) Repository CT) ENCOUNTERS ENCOUNTERS ADMIT/DISCHARGE ACCOUNT NUMBER ADMITTING ENCOUNTER LOCATION SOURCE CLASS 10/26/2018 [id number] Ambulatory [facility] ding:CT Repository 08/04/2018/08/04/20 [id number] Ambulatory BMSBuilding: [place] [facility] Repository 07/31/2018/08/02/20 [id number] Agyepong, Inpatient [address] ding:PCURoom Repository : [id number]: 1 07/31/2018 [id number] Agyepong, Ambulatory BMSBuilding: [place] Carlo [facility]MS.[facility] Repository 07/31/2018 [id number] Agyepong, Ambulatory BMSBuilding: [place] Carlo [facility] Repository 07/31/2018 [id number] Agyepong, Ambulatory BMSBuilding: [place] Carlo BMS[facility] Repository 07/23/2018 [id number] Ambulatory [facility] ding:LAB Repository 07/15/2018/07/16/20 [id number] Jackson Fields Inpatient [address] ding:NE3Sukv Repository : BF998Vij: 1 07/10/2018 [id number] Ambulatory [facility] ding:LAB Repository 07/08/2018 [id number] Emergency Buildin[facility] EDRoom: System [id number]: Repository [id number] 07/08/2018/07/16/20 [id number] Ambulatory BMSBuilding: [place] 18 [facility] Repository 06/19/2018 [id number] Ambulatory [facility] ding:PSN Repository 06/18/2018 [id number] Ambulatory [facility] ding:CT Repository 06/11/2018/06/11/20 [id number] Ambulatory BMSBuilding: [place] [facility] Repository 04/29/2018 [id number] Ambulatory [facility] ding:BFHLAB Repository 04/14/2018/04/16/20 [id number] Sementi, Inpatient [place] [address] ding:BM8Mdei Repository : DD203Ysn: 1 2018 [id number] Sementi, Ambulatory BMSBuilding: [place] Swapna BMS.[facility] Repository 2018 [id number] Sementi, Ambulatory BMSBuilding: [place] Swapna BMS.[facility] Repository 2018 [id number] Sementi, Ambulatory BMSBuilding: [place] Swapna BMS.[facility] Repository 04/14/2018/04/16/20 [id number] Ambulatory BMSBuilding: [place] 18 [facility] Repository 2018 [id number] Emergency [address]in[address] [place] [address] EDRoom: System [id number]: Repository [id number] 01/29/2018 [id number] Ambulatory [facility] ding:LAB Repository PAYERS PAYERS ENCOUNTER GUARANTOR PAYER SUBSCRIBER SOURCE 10/26/2018 DEION E Primary DEION E [place] [id number] Insurance:MEDICARE DROUHARDDOB: [facility] [id number] Number: Repository [address]Tor: (519) [id number] [phone] () Date:2018-10-20 10/26/2018 Secondary DEION E [place] Insurance:MEDICAIDPol DROUHARDDOB: [facility] icy Number: [id number] [place] [address] [id number] Repository Date:2018-10-20 10/26/2018 Tertiary NOT GIVENUNK [place] Insurance:SELF PAY [facility] Number: Effective Repository Date:2018-10-20 08/04/2018 DEION E Primary DEION E [place] [id number] Insurance:MEDICARE DROUHARDDOB: Community [address]ON[address] PART A [address] Number: Repository [id number]: 330 [id number] [phone] () Date:2018-06-11 08/04/2018 Secondary DEION E [place] Insurance:MEDICAIDPol DROUHARDDOB: [facility] ic Number: [id number] [place] [address] [id number] Repository Date:2018-06-11 08/04/2018 Tertiary NOT GIVENUNK [place] Insurance:SELF PAY [facility] Number: Effective Repository Date:2018-07-27 07/31/2018 DEION E Primary DEION E [place] [id number] Insurance:MEDICARE DROUHARDDOB: Community [address] PART A [address] Number: Repository [id number]: 330 [id number] [phone] () Date:2018-07-30 07/31/2018 Secondary DEION E [place] Insurance:MEDICAIDPol DROUHARDDOB: [facility] icy Number: [id number] [id number] Repository Date:2018-07-30 07/31/2018 Tertiary NOT GIVENUNK [place] Insurance:SELF PAY [facility] Number: Effective Repository Date:2018-07-30 07/31/2018 DEION E Primary DEION E [place] [id number] Insurance:MEDICARE DROUHARDDOB: Community [address] PART A [address] Number: Repository [id number]: 330 [id number] [phone] (HP) Date:2018-07-30 07/31/2018 Secondary DEION E [place] Insurance:MEDICAIDPol DROUHARDDOB: Community icy Number: [id number] Hospital [id number] Repository Date:2018-07-30 07/31/2018 Tertiary NOT GIVENUNK [place] Insurance:SELF PAY [facility] Number: Effective Repository Date:2018-07-31 07/31/2018 DEION E Primary DEION E [place] [id number] Insurance:MEDICARE DROUHARDDOB: Community [address] PART A [facility] [id number] [place] Number: Repository [id number]: 330 [id number] [phone] (HP) Date:2018-07-30 07/31/2018 Secondary DEION E [place] Insurance:MEDICAIDPol DROUHARDDOB: [facility] icy Number: [id number] [id number] Repository Date:2018-07-30 07/31/2018 Tertiary NOT GIVENUNK [place] Insurance:SELF PAY [facility] Effective Repository Date:2018-07-31 07/31/2018 DEION E Primary DEION E [place] [id number] Insurance:MEDICARE DROUHARDDOB: Community [address] PART A [address] Number: Repository [id number]: 330 [id number] [phone] () Date:2018-07-30 07/31/2018 Secondary DEION E [place] Insurance:MEDICAIDPol DROUHARDDOB: [facility] icy Number: [id number] [id number] Repository Date:2018-07-30 07/31/2018 Tertiary NOT GIVENUNK [place] Insurance:SELF PAY [facility] Number: Effective Repository Date:2018-07-31 07/23/2018 DEION E Primary DEION E [place] [id number] Insurance:MEDICARE DROUHARDDOB: Community [address] PART A [address] [place] Number: Repository [address]Mjj: 330 [id number] [phone] (HP) Date:2018-07-23 07/23/2018 Secondary DEION E [place] Insurance:MEDICAIDPol DROUHARDDOB: [facility] icy Number: [id number] Hospital [id number] Repository Date:2018-07-23 07/23/2018 Tertiary NOT GIVENUNK [place] Insurance:SELF PAY [facility]: Effective Repository Date:2018-07-23 07/15/2018 DEION E Primary DEION E [place] [id number] Insurance:MEDICARE DROUHARDDOB: [facility] PART A [facility] [id number] Number: Repository [address]Xox: 330 [id number] [phone] () Date:2018-06-30 07/15/2018 Secondary DEION E [place] Insurance:MEDICAIDPol DROUHARDDOB: [facility] Number: [id number] Hospital [id number] Repository Date:2018-06-30 07/15/2018 Tertiary NOT GIVENUNK [place] Insurance:SELF PAY [facility] Number: Effective Repository Date:2018-06-30 07/10/2018 DEION E Primary DEION E [place] [id number] Insurance:MEDICARE DROUHARDDOB: [facility] PART A [facility] [id number] Number: Repository [address]Str: 330 [id number] [phone] (HP) Date:2018-07-10 07/10/2018 Secondary DEION E [place] Insurance:MEDICAIDPol DROUHARDDOB: [facility] Number: [id number] Hospital [id number] Repository Date:2018-07-10 07/10/2018 Tertiary NOT GIVENUNK [place] Insurance:SELF PAY [facility] Number: Effective Repository Date:2018-07-10 07/08/2018 Deion Primary Deion [facility] DrouhardDOB: Insurance:MedicarePol DrouhardDOB: System [id number] icy Number: Effective [facility] [address] Date: [address] [place] [phone]: () 07/08/2018 Secondary Deion [facility] Insurance:MedicarePol DrouhardDOB: System icy Number: Effective [id number] Repository Date: 07/08/2018 Tertiary Deion [facility] Insurance:MedicaidPol DrouhardDOB: System icy Number: Effective [id number] Repository Date: 07/08/2018 DEION E Primary DEION E [place] [id number] Insurance:MEDICARE DROUHARDD[facility] [id number] Number: Repository [address]Arz: 330 [id number] [phone] () Date:2018-06-30 07/08/2018 Secondary DEION E [place] Insurance:MEDICAIDPol DROUHARDDOB: [facility] icy Number: [id number] Hospital [id number] Repository Date:2018-06-30 07/08/2018 Tertiary NOT GIVENUNK [place] Insurance:SELF PAY [facility] Number: Effective Repository Date:2018-07-08 06/19/2018 DEION E Primary DEION E [place] [id number] Insurance:MEDICARE DROUHARDDOB: [facility] [id number] Number: Repository [address]Gmz: 330 [id number] [phone] () Date:2018-06-11 06/19/2018 Secondary DEION E [place] Insurance:MEDICAIDPol DROUHARDDOB: [facility] ic Number: [id number] Hospital [id number] Repository Date:2018-06-11 06/19/2018 Tertiary NOT GIVENUNK [place] Insurance:SELF PAY [facility] Number: Effective Repository Date:2018-06-11 06/18/2018 DEION E Primary DEION E [place] [id number] Insurance:MEDICARE DROUHARDDOB: [facility] [address] PART A [facility] [id number] Number: Repository [address]Wii: 330 [id number] [phone] () Date:2018-06-15 06/18/2018 Secondary DEION E [place] Insurance:MEDICAIDPol DROUHARDDOB: Community icy Number: [id number] Hospital [id number] Repository Date:2018-06-15 06/18/2018 Tertiary NOT GIVENUNK [place] Insurance:SELF PAY [facility]: Effective Repository Date:2018-06-15 06/11/2018 DEION E Primary DEION E [place] [id number] Insurance:MEDICARE DROUHARDDOB: Community [address] PART A [facility] [id number] Number: Repository [address]Uzh: 330 [id number] [phone] () Date:2018-04-16 06/11/2018 Secondary DEION E [place] Insurance:MEDICAIDPol DROUHARDDOB: [facility] icy Number: [id number] Hospital [id number] Repository Date:2018-04-16 06/11/2018 Tertiary NOT GIVENUNK [place] Insurance:SELF PAY [facility] Number: Effective Repository Date:2018-06-09 04/29/2018 DEION E Primary DEION E [place] [id number] Insurance:MEDICARE DROUHARDDOB: Community [address] PART A [facility] [id number] Number: Repository [address]Mxc: 330 [id number] [phone] () Date:2018-04-29 04/29/2018 Secondary DEION E [place] Insurance:MEDICAIDPol DROUHARDDOB: [facility] icy Number: [id number] Hospital [id number] Repository Date:2018-04-29 04/29/2018 Tertiary NOT GIVENUNK [place] Insurance:SELF PAY [facility] Number: Effective Repository Date:2018-04-29 2018 DEION E Primary DEION E [place] [id number] Insurance:MEDICARE DROUHARDDOB: Community [address] PART A [facility] [id number] Number: Repository [address]Iqf: 330 [id number] [phone] () Date:2018 2018 Secondary DEION E [place] Insurance:MEDICAIDPol DROUHARDDOB: Community icy Number: [id number] Hospital [id number] Repository Date:2018 2018 Tertiary NOT GIVENUNK [place] Insurance:SELF PAY [facility] Number: Effective Repository Date:2018 2018 DEION E Primary DEION E [place] [id number] Insurance:MEDICARE DROUHARDDOB: Community [address] PART A [facility] [id number] Number: Repository [address]Why: 330 [id number] [phone] () Date:2018 2018 Secondary DEION E [place] Insurance:MEDICAIDPol DROUHARDDOB: [facility] icy Number: [id number] Hospital [id number] Repository Date:2018 2018 Tertiary NOT GIVENUNK [place] Insurance:SELF PAY [facility] Number: Effective Repository Date:2018 2018 DEION E Primary DEION E [place] [id number] Insurance:MEDICARE DROUHARDDOB: Community [address] PART A [facility] [id number] Number: Repository [address]Zho: 330 [id number] [phone] () Date:2018 2018 Secondary DEION E [place] Insurance:MEDICAIDPol DROUHARDDOB: [facility] icy Number: [id number] Hospital [id number] Repository Date:2018 2018 Tertiary NOT GIVENUNK [place] Insurance:SELF PAY [facility] Number: Effective Repository Date:2018 2018 DEION E Primary DEION E [place] [id number] Insurance:MEDICARE DROUHARDDOB: Community [address] PART A [facility] [id number] Number: Repository [address]Tel: 330 [id number] [phone] () Date:2018 2018 Secondary DEION E [place] Insurance:MEDICAIDPol DROUHARDDOB: [facility] icy Number: [id number] Hospital [id number] Repository Date:2018 2018 Tertiary NOT GIVENUNK [place] Insurance:SELF PAY [facility]: Effective Repository Date:2018 2018 DEION E Primary DEION E [place] [id number] Insurance:MEDICARE DROUHARDDOB: Community [address] PART A [facility] [id number] Number: Repository [address]Cfw: (450) [id number] [phone] () Date:2018 2018 Secondary DEION E [place] Insurance:MEDICAIDPol DROUHARDDOB: Community icy Number: [id number] Hospital [id number] Repository Date:2018 2018 Tertiary NOT GIVENUNK [place] Insurance:SELF PAY [facility] Number: Effective Repository Date:2018 2018 Deion Primary Deion [facility] DrouhardDOB: Insurance:MedicarePol DrouhardDOB: System icy Number: Effective [id number] [facility] Apt Date: [address] [place] [phone]: () 2018 Secondary Deion [facility] Insurance:MedicarePol DrouhardDOB: System icy Number: Effective [id number] Repository Date: 2018 Tertiary Deion [facility] Insurance:MedicaidPol DrouhardDOB: System icy Number: Effective [id number] Repository Date: 01/29/2018 DEION E Primary DEION E [place] [id number] Insurance:MEDICARE DROUHARDDOB: Community [address] PART A [facility] [id number] Number: Repository [id number]: (792) [id number] [phone] () Date:2018-01-29 01/29/2018 Secondary DEION E [place] Insurance:MEDICAIDPol DROUHARDDOB: Community icy Number: [id number] Hospital [id number] Repository Date:2018-01-29 01/29/2018 Tertiary NOT GIVENUNK [place] Insurance:SELF PAY [facility] Number: Effective Repository Date:2018-01-29
== END ==
PROVIDERS: Family Provider Family Medicine; PCP Family Medicine; Referring Provider Urology; Visit Provider Urology
DX: C67.0 Malignant neoplasm of trigone of bladder (principal)
CPT/HCPCS: 74177; Q9967

== ENCOUNTER → 2019-01-25 10:00 | Outpatient (CLI) | payer MEDICARE, MEDICAID, SELFPAY ==
[2019-01-25 12:55] LABS: Absolute Lymphocyte Count 1.31 X10^3/ul (0.83-4.51); Basophil# 0.04 X10^3/uL; Basophil% 0.6 % (0-1); Eosinophil# 0.08 X10^3/uL; Eosinophils% 1.3 % (0-5); Hematocrit 46.8 % (40-54); Hemoglobin 15.1 g/dl (13.0-16.5); Lymphocyte # 1.31 X10^3/ul (4.0); Lymphocyte % 20.9 % (19-41); Mean Corp Hgb Conc 32.3 g/gl (32-36); Mean Corpuscular Hgb 29.7 pg (27.0-32.0); Mean Corpuscular Volume 92.1 fL (80-94); Monocyte# 0.82 X10^3/uL; Monocyte% 13.1 % (0-10); Neutrophil # 4.01 X10^3/uL (2.7-7.7); Neutrophil % 63.9 % (47-70); Platelet Count 218 K/mm3 (150-450); RBC Distribution Width CV 14.5 % (11.6-14.6); RBC Distribution Width SD 49.4 fl (35.1-43.9); Red Blood Count 5.08 M/mm3 (4.6-6.2); White Blood Count 6.3 K/mm3 (4.4-11.0)
[2019-01-25 12:57] LABS: POSITIVE COUNT NO; POSITIVE DIFFERENTIAL NO; POSITIVE MORPHOLOGY NO
[2019-01-25 13:32] LABS: Anion Gap 9 (5-15); BUN 23 mg/dL (7-18); BUN/Creat Ratio 16.2 RATIO (10-20); Calcium,Total 9.4 mg/dL (8.5-10.1); Chloride 108 mmol/L (98-107); Creatinine, Serum 1.42 mg/dL (0.70-1.30); EST Glomerular Filtration Rate 53 mL/min (>60); Est Glom Filt Rate - Afr Amer 64 mL/min (>60); Glucose 109 mg/dL (74-106); Potassium 5.7 mmol/L (3.5-5.1); Sodium Level 140 mmol/L (136-145); T4 Free Direct 1.02 ng/dL (0.76-1.46); Thyroid Stim Hormone (TSH) 1.61 uIU/mL (0.358-3.74)
== END ==
PROVIDERS: Family Provider Family Medicine; PCP Family Medicine; Visit Provider Family Medicine
DX: L65.9 Nonscarring hair loss, unspecified (principal); R53.83 Other fatigue
CPT/HCPCS: 36415; 80048; 84439; 84443; 85025

== ENCOUNTER → 2019-01-27 08:15 | Outpatient (CLI) | payer MEDICARE, MEDICAID, SELFPAY ==
[2019-01-27 10:44] LABS: Anion Gap 7 (5-15); BUN 25 mg/dL (7-18); BUN/Creat Ratio 19.8 RATIO (10-20); Calcium,Total 9.1 mg/dL (8.5-10.1); Chloride 106 mmol/L (98-107); Creatinine, Serum 1.26 mg/dL (0.70-1.30); EST Glomerular Filtration Rate 60 mL/min (>60); Est Glom Filt Rate - Afr Amer 73 mL/min (>60); Glucose 96 mg/dL (74-106); Potassium 4.6 mmol/L (3.5-5.1); Sodium Level 138 mmol/L (136-145)
== END ==
PROVIDERS: Family Provider Family Medicine; PCP Family Medicine; Referring Provider Family Medicine; Visit Provider Family Medicine
DX: E87.5 Hyperkalemia (principal); N18.9 Chronic kidney disease, unspecified
CPT/HCPCS: 36415; 80048

== ENCOUNTER 2019-06-25 06:20 | Day surgery (SDC) | payer MEDICARE, MEDICAID, SELFPAY ==
[2019-06-18 09:16] VITALS: BP 148/83; PULSE 77; RESP 16; TEMP 36.5; O2SAT 98; BMI 22.6
[2019-06-18 09:52] LABS: Hematocrit 47.2 % (40-54); Hemoglobin 15.8 g/dL (13.0-16.5); Mean Corp Hgb Conc 33.5 g/dL (32-36); Mean Corpuscular Hgb 30.4 pg (27.0-32.0); Mean Corpuscular Volume 90.8 fL (80-94); Mean Platelet Vol. 10.7 fl (6.2-12.0); Platelet Count 196 K/mm3 (150-450); RBC Distribution Width CV 13.9 % (11.6-14.6); RBC Distribution Width SD 46.6 fl (35.1-43.9); White Blood Count 6.8 K/mm3 (4.4-11.0)
[2019-06-18 10:14] LABS: Anion Gap 7 (5-15); BUN 22 mg/dL (7-18); BUN/Creat Ratio 17.2 RATIO (10-20); Calcium,Total 9.4 mg/dL (8.5-10.1); Chloride 107 mmol/L (98-107); Creatinine, Serum 1.28 mg/dL (0.70-1.30); EST Glomerular Filtration Rate 59 mL/min (>60); Est Glom Filt Rate - Afr Amer 72 mL/min (>60); Estimated Creatinine Clearance 59.94 ml/min; Glucose 94 mg/dL (74-106); Potassium 4.7 mmol/L (3.5-5.1); Sodium Level 141 mmol/L (136-145)
[2019-06-25 06:44] VITALS: BP 149/85; PULSE 77; RESP 16; TEMP 36.4; O2SAT 98; BMI 22.6
[2019-06-25] MEDS: Cefazolin 2 GM in 0.9% Normal Saline 100 ML IV (07:59)
--- NOTE | 2019-06-25 08:00 | BLA_PTH ---
PATIENT: EDUIN CHAU LOC: [facility] U#:[id number] AGE/SX: 69/M ROOM: RE06/25/[address]: Dr. Jackson Fields MD : 1950 BED: DIS: 06/25/2019 SPEC #: [id number] RECD: 06/25/19 14:46 STATUS: CARROLL RENadir #: [id number] AUGUSTIN: 06/25/19 08:[address]: Jackson Fields DEPT: SURGICAL PATHOLOGY RECD BY: Rosemarie Morin ENTERED: 06/28/19 10:20 SP TYPE: BLADDER BX OTHR DR: Dr. Donell Moralez MD Tissues: Urinary bladder, NOS Procedures: Surgery Specimen Level IV HEADER OPERATION: Biopsy bladder tumor PRE-OP DIAGNOSIS: Malignant neoplasm of posterior wall of bladder TISSUE SUBMITTED: Bladder tissue MICROSCOPIC DIAGNOSIS Urinary bladder tumor, TUR: Papillary urothelial carcinoma. See cancer checklist below in the comment section. AM:diana 06/29/19 COMMENT BLADDER CANCER (TUR) SUMMARY: Procedure - TURBT Histologic type - urothelial (transitional) cell carcinoma. Associated epithelial lesions - none identified Histologic grade - high grade (WHO) Tumor configuration - papillary Detrusor muscle - present and free of carcinoma. Lymph-Vascular invasion - not identified Microscopic extent of tumor - noninvasive papillary carcinoma Additional pathologic findings - chronic lymphocytic cystitis The above summary is in compliance with [employer] (CAP) Cancer Protocols Checklist and [place] Joint Committee on Cancer (AJCC), Staging Manual, 8th Ed. 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 MICROSCOPIC DESCRIPTION Slides are reviewed. GROSS DESCRIPTION Received in fixative is one container labeled with the patient's name and designated bladder tissue. The specimen consists of multiple irregular fragments of light magdaleno soft tissue that in aggregate measure 1 x 0.5 x 0.1 cm. The specimen is totally submitted in one cassette. / AM:diana 06/28/19 TC:0 CPT: 22210
--- NOTE | 2019-06-25 08:25 | DCINST_ITS ---
Discharge Diet: Light diet - advance as tolerated Discharge Activity: Return to Normal Activity Call your doctor if your incision/area has: Sudden Increased Bleeding Suture Line Care: Avoid Pulling/Pushing, Avoid Pinching/Bending Allergies/Adverse Reactions: Allergies bupropion [From Wellbutrin] Allergy (Verified 06/18/19 08:55) Unknown cephalexin [From Keflex] Allergy (Verified 06/18/19 08:55) Unknown Penicillins Allergy (Verified 06/18/19 08:55) Unknown Medications to take at Discharge Tamsulosin HCl [Flomax] 0.4 mg PO BID 04/14/18 Pantoprazole Sodium [Protonix] 40 mg PO DAILY PRN 06/18/19 Docusate Sodium [Colace] 100 mg PO BID #20 cap 06/25/19 Ibuprofen [Motrin] 600 mg PO Q6H PRN PRN #14 tab 06/25/19 The following prescriptions were given: Docusate Sodium [Colace] 100 mg PO BID #20 cap Prescription Printed Ibuprofen [Motrin] 600 mg PO Q6H PRN PRN #14 tab PRN Reason: Pain Prescription Printed Primary Care Physician: Donell Moralez MD [Primary Care Provider] - Test Results: Test results from this visit will be discussed in further detail at your follow- up appointment, if applicable. Please Follow Up With: Jackson Fields MD When: in 2 weeks, please call to make an appointment.
--- NOTE | 2019-06-25 08:26 | OP.PCM_ITS ---
Report of Operation Date of Procedure: 06/25/19 Pre-Operative Diagnosis: History of bladder cancer with recurrence Post-Operative Diagnosis: Multiple recurrences within the posterior wall the bladder were resected and cauterized Surgery/Procedure Performed:: Cystoscopy resection of bladder tumors multiple posterior wall and cauterization of tumors Description of Surgical Findings:: 69-year-old male was taken back to the operating room at the smooth induction of general anesthesia he was placed in dorsolithotomy position, the penis and testicles were prepped and draped in usual sterile fashion, I used a 21 [place] bridged with a loop and a 30 degree lens and went into the bladder the entire length of the urethra was normal the membranous urethra is normal the pendulous urethra is normal the sphincter was intact the verumontanum was identified he had bilateral hypertrophy and a high riding bladder neck once I went inside the bladder did a complete cystoscopy with 30 and 70 degree lens inspect all the thacker of the bladder he had identified right ureter that was reimplanted in the upper lateral wall he had the right ureter has been completely excised and was not visible in the normal location the left ureter was still intact and e ffluxing clear urine in the posterior wall the bladder the multiple small tumors measurement of these tumors are quite difficult as these were all small about half centimeter tumors in multiple locations about 5 of them I then resected these 5 little tumors cauterized the base after cauterizing the base extensively then made sure the rest of the bladder was clear of any tumors which was and then tumor tissue was handed off the specimen place a Patel cath in the bladder place mitomycin-C in the bladder and then patient was taken back to the PACU good condition again tumor size is probably half a centimeter by half a centimeter tumors x5 in the back of the bladder. Type of Anesthesia:: General Drains: none - Admit VTE Documentation VTE Present on Admission: No
[2019-06-25 08:30] VITALS: BP 114/63; BP 149/89; PULSE 61; RESP 16; TEMP 36.3; O2SAT 98
[2019-06-25 08:43] VITALS: BP 129/78; BP 149/89; PULSE 66; RESP 16; TEMP 36.3; O2SAT 96
[2019-06-25 09:22] VITALS: BP 149/89
[2019-06-25 10:41] VITALS: BP 149/89; BP 154/95; PULSE 63; RESP 18; TEMP 36.2; O2SAT 99
== END 2019-06-25 11:11 | disposition home or self-care (01) ==
LOC: SDC 06:21 → AC 06:22
PROVIDERS: Anesthesiology; Family Provider Family Medicine; PCP Family Medicine; Referring Provider Urology; Visit Provider Urology
PROC: 0TBB8ZX Excision of Bladder, Via Natural or Artificial Opening Endoscopic, Diagnostic (ICD-10-PCS; CPT 52250; principal; 2019-06-25 07:50)
DX: C67.4 Malignant neoplasm of posterior wall of bladder (principal); N40.1 Benign prostatic hyperplasia with lower urinary tract symptoms; R35.0 Frequency of micturition; K21.9 Gastro-esophageal reflux disease without esophagitis; E78.00 Pure hypercholesterolemia, unspecified; F12.90 Cannabis use, unspecified, uncomplicated; Z85.51 Personal history of malignant neoplasm of bladder; F17.200 Nicotine dependence, unspecified, uncomplicated
CPT/HCPCS: 00912; 52234; 36415; 80048; 85027; 88305; J7120; J2405; J3490; J9280

== ENCOUNTER → 2020-05-30 | Outpatient (CLI) | payer MEDICARE, MEDICAID, SELFPAY ==
--- NOTE | 2020-05-30 | FLU_PTH ---
PATIENT: EDUIN CHAU LOC: [facility] U#:[id number] AGE/SX: 70/M ROOM: RE05/30/[address]: Dr. Jackson Fields MD : 1950 BED: DIS: 05/30/2020 SPEC #: [id number] RECD: 05/30/20 15:00 STATUS: CARROLL MATT #: [id number] AUGUSTIN: 05/30/20 00:[address]: Jackson Fields DEPT: CYTOLOGY RECD BY: Rosemarie Morin ENTERED: 05/31/20 11:04 SP TYPE: Fluid OTHR DR: Dr. Donell Moralez MD Tissues: Urine Procedures: Special Stain Group II Cytospin Fluid HEADER OPERATION: Not noted PRE-OP DIAGNOSIS: Malignant neoplasm of bladder TISSUE SUBMITTED: Urine for cytology DIAGNOSIS CYTOLOGY Urine for cytology (cytospin): Rare atypical urothelial cells present suspicious for malignancy. AM:diana 06/01/20 COMMENT Reference is made to the patient's urinary bladder TUR from 2018 (00-) in which low grade urothelial carcinoma was identified. Case has been reviewed in consultation with Dr. Goncalves who concurs with the above diagnosis. IDC:SJ CYTOLOGY STUDY Slides are reviewed. CYTOLOGY GROSS Received is 40 ml of hazy yellow fluid labeled with the patient's name and and designated per the requisition as urine. Submitted for cytology preparation. / diana 05/31/20 TC:? CPT: 94570
[2020-05-30 17:13] LABS: Cytology, Body Fluid / CSF SEE PATHOLOGY REPORT
== END | disposition home or self-care (01) ==
LOC: LABSPEC 16:33
PROVIDERS: PCP Family Medicine; Referring Provider Urology; Visit Provider Urology
DX: C67.8 Malignant neoplasm of overlapping sites of bladder (principal)
CPT/HCPCS: 88108; 88305; 88313

== ENCOUNTER → 2021-01-18 | Outpatient (CLI) | payer MEDICARE, SELFPAY ==
--- NOTE | 2021-01-18 | CYSPIN_PTH ---
PATIENT: EDUIN CHAU LOC: [facility] U#:[id number] AGE/SX: 70/M ROOM: RE01/18/[address]: Dr. Jackson Fields MD : 1950 BED: DIS: 01/18/2021 SPEC #: [id number] RECD: 01/19/21 08:23 STATUS: CARROLL REQ #: [id number] AUGUSTIN: 01/18/21 00:[address]: Jackson Fields DEPT: CYTOLOGY RECD BY: Carisa Carlson ENTERED: 01/19/21 08:24 SP TYPE: CYSPIN FL OTHR DR: Dr. Donell Moralez MD Tissues: Urine Procedures: Pap Stain (control) Special Stain Group II Cytospin Fluid HEADER OPERATION: Not noted PRE-OP DIAGNOSIS: Bladder cancer TISSUE SUBMITTED: Urine for cytology DIAGNOSIS CYTOLOGY Urine for cytology (cytospin): A few clusters of mildly atypical urothelial cells noted. SJ:diana 01/19/2021 COMMENT Please make reference to previous specimens ([id number] and [id number]), urinary bladder tumor, TUR with diagnosis of papillary urothelial carcinoma. CYTOLOGY STUDY Slides are reviewed. CYTOLOGY GROSS Received is 70 ml of gold cloudy fluid labeled with the patient's name and and designated per the requisition as urine. Submitted for cytology preparation. / diana 01/18/2021 TC:5 CPT: 42758
[2021-01-18 16:48] LABS: Cytology, Body Fluid / CSF SEE PATHOLOGY REPORT
== END | disposition home or self-care (01) ==
LOC: LABSPEC 16:30
PROVIDERS: PCP Family Medicine; Referring Provider Urology; Visit Provider Urology
DX: C67.4 Malignant neoplasm of posterior wall of bladder (principal)
CPT/HCPCS: 88108; 88313

== ENCOUNTER → 2022-07-19 | Outpatient (CLI) | payer MEDICARE, MEDICAID, SELFPAY ==
--- NOTE | 2022-07-19 13:52 | RAD_ITS ---
EXAM: XR SACRUM AND COCCYX, 2 OR MORE VIEWS CLINICAL INDICATION: BACK PAIN AND HIP PAIN TECHNIQUE: Frontal and lateral views of the sacrum and coccyx. This report was created using [employer] technology. COMPARISON: None. FINDINGS: SACRUM/COCCYX: Unremarkable. No displaced fracture. No destructive or sclerotic lesions. Note that overlapping bowel shadows may however obscure fine detail in the frontal view. Sacroiliac joints are unremarkable. SOFT TISSUES: Unremarkable. No soft tissue swelling or gas. VASCULATURE: Total left hip arthroplasty. Left common iliac artery stent graft. RAD/S-I Jts 3 or More Views IMPRESSION: No acute findings in the sacrum or coccyx. Electronically Signed: Lencho Milner MD at 17:20 EDT Reading Location ID and State: [facility] / ID , Service support ,
--- NOTE | 2022-07-19 13:55 | RAD_ITS ---
STUDY: X-RAY - LUMBAR SPINE REASON FOR EXAM: Male, 72 years old. BACK AND HIP PAIN TECHNIQUE: XR Spine Lumbar Min 4 Views COMPARISON: None FINDINGS: Normal lumbar lordosis. There is no substantial scoliosis. There is a normal alignment of the vertebrae. Left common iliac stent graft. There is metallic hardware noted in the left hip. There is multilevel endplate spondylosis of the lumbar vertebrae. Normal disc space heights. There are atherosclerotic vascular calcifications. RAD/L/S Spine Min 4 Views IMPRESSION: Degenerative changes of the spine, as detailed above. Electronically Signed: Lencho Milner MD at 17:19 EDT ,
== END | disposition home or self-care (01) ==
LOC: MTRAD 13:50
PROVIDERS: PCP Family Medicine; Referring Provider Family Medicine; Visit Provider Family Medicine
DX: M54.50 Low back pain, unspecified (principal)
CPT/HCPCS: 72110; 72202